=== PATIENT | female | born 1970 | race Caucasian/White ===

== ENCOUNTER 2018-09-11 18:20 | Observation (INO) | payer BC ==
[~2018-09-11] VITALS: Ht 165.1 cm; Wt 105.2 kg
[2018-09-11] VITALS (10 sets, daily range): BP systolic 118–159; BP diastolic 73–95
[2018-09-11] MEDS ORDERED: NITROGLYCERIN 0.4 MG SL TABS BTL 25'S SL ONE (18:26)
[2018-09-11] MEDS ORDERED: ASPIRIN 81 MG CHEW (CHILDREN'S ASA) ONE (18:26)
--- OUTSIDE RECORDS SUMMARY | 2018-09-11 18:26 | XMS REPORT | Continuity of Care Document ---
Author Author [facility] Address Unknown Phone Unavailable Care Team Providers Care Project Manager/Team Coach Name Role Phone LINSEY EDMOND FACP, MD PCP Insurance Providers Guarantor Francisco Patel Address [address] [place] [id number] Email [email or web address] Payer [facility] Policy Number [id number] Subscriber's Name Rohit Pateland Rachel Relationship 01 Spouse Group Number [id number] Effective Date 17 Payer [facility] Policy Number [id number] Subscriber's Name Francisco Patel Relationship 18 Self / Same As Patient Group Number [id number] Advance Directives Directive Response Recorded Date/Time Advance Directives No 04/20/17 5:50pm Chief Complaint and Reason for Visit Chief Complaint Headache Reason for Visit Migraine Problems Medical Problem Onset Date Status Diabetes mellitus type 2 in obese Unknown Chronic Hyperlipidemia LDL goal <100 Unknown Chronic Hypothyroidism 05/16/2013 Chronic Migraine Unknown Acute Obesity (BMI 30-39.9) Unknown Chronic Tobacco dependence Unknown Chronic Past Problems Medical Problem Onset Date Status Abdominal pain Unknown Acute Acute bronchitis Unknown Acute Acute bronchitis Unknown Acute Acute epigastric pain Unknown Acute Anxiety Unknown Acute Anxiety attack Unknown Acute Anxiety attack Unknown Acute Asthma exacerbation Unknown Acute Asthma exacerbation Unknown Acute Candidiasis of female genitalia Unknown Acute Chronic sinusitis Unknown Chronic Constipation Unknown Acute Cough Unknown Acute Diarrhea Unknown Acute Encounter for cervical Pap smear with pelvic exam 05/16/2013 Acute Epigastric abdominal pain Unknown Acute Esophageal spasm Unknown Acute Failure of outpatient treatment Unknown Acute Granuloma annulare Unknown Chronic Head ache Unknown Heavy menses 05/16/2013 Acute Intractable headache Unknown Acute Left-sided chest wall pain Unknown Acute Menopausal symptoms 05/16/2013 Acute Nausea & vomiting Unknown Acute New onset headache Unknown Acute Otitis media 02/07/2014 Acute Preventative health care 05/16/2013 Acute Right shoulder pain Unknown Acute Sinusitis, acute ethmoidal Unknown Acute Skin lesion of left arm 05/16/2013 Acute Tobacco dependence Unknown Acute Weight loss counseling, encounter for Unknown Acute Wheezing 02/07/2014 Acute Medications Current Home Medications Medication Dose Units Route Directions Days Qty Instructions Start Date Acetam/Butalbital/Caffeine/Codeine (Butalbital/Acetaminophen/Caffeine/Codeine) 09-349-81-30 Mg Capsule 1-2 Capsule Oral Every 4 Hours As Needed as needed for For Headache/Migraine 20 Capsule DO NOT EXCEED 6 CAPSULES/24 HOURS 05/08/18 Acetaminophen/Butalbital/Caffeine (Butalbital/Acetaminophen/Caffeine) 50-325-40 Mg Tablet 1-2 Tablet Oral Every 4 Hours As Needed as needed for For Headache/Migraine 60 Tablet DO NOT EXCEED 6 TABLETS/24 HOURS 04/22/17 Acetaminophen/Hydrocodone Bitart ([place]) 5 Mg/325 Mg Tablet 1-2 Tablet Oral Every 4-6 Hours As Needed as needed for For Pain 20 Tablet 07/13/17 Albuterol (Albuterol Sulfate Neb) 2.5 Mg/3 Ml Vial.neb 1 Vial Nebulize Every 4-6 Hours As Needed as needed for Shortness Of Breath/Wheezing 90 Vial 10/27/17 Albuterol (Proair Hfa) 90 Mcg Hfa.aer.ad 1-2 Puff Inhalation Every 4-6 Hours As Needed as needed for Shortness Of Breath/Wheezing 8.5 Gram 10/18/17 Amitriptyline Hcl 75 Mg Tablet 150 Mg Oral Bedtime 30 Tablet 04/22/17 Atorvastatin Calcium 20 Mg Tablet 20 Mg Oral Daily 90 Tablet 07/06/17 Cetirizine Hcl (Zyrtec) 10 Mg Capsule 10 Mg Oral Daily Cyclobenzaprine Hcl (Flexeril) 10 Mg Tablet 10 Mg Oral As Needed, Up To 3 Times Daily as needed for For Headache/Migraine 21 Tablet 04/22/17 Fluticasone Propionate 50 Mcg [place].susp 2 [place] Intranasal Daily 16 Gram 06/14/16 Ibuprofen 800 Mg Tablet 800 Mg Oral Every 8 Hours As Needed 90 Tablet 07/05/12 Metformin Hcl (Glucophage) 500 Mg Tablet 500 Mg Oral Twice Daily With Meals 180 Tablet 05/16/17 Niacinamide 500 Mg Tablet 500 Mg Oral Three Times A Day 42 Tablet 07/06/17 Ondansetron Hcl (Zofran) 4 Mg Tablet 4 Mg Oral As Needed, Up To 3 Times Daily as needed for For Nausea/Vomiting 20 Tablet 05/08/18 Prednisone (Prednisone 40 Mg Burst) 20 Mg Tablet 40 Mg Oral Daily 10 Tablet TAKE 2 TABLETS (40 MG) BY MOUTH ONCE DAILY FOR 5 DAYS. DISPENSE #10 20 MG TABLETS. 10/27/17 Past Home Medications Medication Directions Ordered Status Acetam/Butalbital/Caffeine/Codeine (Fioricet W/ Codeine) 75-138-70-30 Mg Capsule, 1 Capsule Oral Every 6 Hours As Needed as needed for For Headache/Migraine 11/19/15 Discontinued Acetaminophen/Hydrocodone Bitart ([place]) 5 Mg/325 Mg Tablet, 1-2 Tablet Oral Every 4-6 Hours As Needed as needed for For Pain 01/28/16 Discontinued Acetaminophen/Hydrocodone Bitart ([place]) 5 Mg/325 Mg Tablet, 1-2 Tab Oral Every 4 Hours As Needed as needed for For Pain Discontinued Acetaminophen/Hydrocodone Bitart ([place]) 5 Mg/325 Mg Tablet, 1-2 Tab Oral Every 4 Hours As Needed 05/13/13 Discontinued Albuterol (Albuterol Sulfate Neb) 2.5 Mg/3 Ml Vial.neb, 1 Vial Nebulize Every 4- 6 Hours As Needed as needed for Shortness Of Breath/Wheezing 06/02/15 Discontinued Albuterol (Albuterol Sulfate Neb) 2.5 Mg/3 Ml Vial.neb, 1 Vial Nebulize Every 4- 6 Hours As Needed as needed for Shortness Of Breath/Wheezing 02/14/14 Discontinued Albuterol (Ventolin Hfa) 90 Mcg Hfa.aer.ad, 1-2 Puff Inhalation Every 4-6 Hours As Needed as needed for Shortness Of Breath/Wheezing 04/16/15 Discontinued Albuterol (Ventolin Hfa) 90 Mcg Hfa.aer.ad, 1-2 Puff Inhalation Every 4-6 Hours As Needed as needed for Shortness Of Breath/Wheezing 02/14/14 Discontinued Albuterol (Albuterol Sulfate Neb) 2.5 Mg/3 Ml Vial.neb, 1 Vial Inhalation Every 6 Hours As Needed 02/09/11 Discontinued Albuterol/Ipratropium (Duoneb) 0.5 Mg/2.5 Mg Solution, 1 Vial Nebulizer Four Times Daily 04/17/12 Discontinued Aleve , Discontinued Alprazolam (Xanax) 0.5 Mg Tablet, 0.5 Mg Oral Three Times A Day 10/09/12 Discontinued Amitriptyline Hcl 75 Mg Tablet, 75 Mg Oral Bedtime 04/11/17 Discontinued Amoxicillin 875 Mg Tablet, 875 Mg Oral Every 12 Hours 06/14/16 Discontinued Amoxicillin 500 Mg Capsule, 500 Mg Oral Three Times A Day 02/09/11 Discontinued Amoxicillin/Potassium Clav (Augmentin 875-125 Tablet) 1 Each Tablet, Twice A Day Discontinued Ampicillin 500 Mg Capsule, 500 Mg Oral Twice A Day 04/16/15 Discontinued Azithromycin (Zpak) 250 Mg Tablet, 1 Pack Oral As Directed 10/27/17 Discontinued Azithromycin (Zpak) 250 Mg Tablet, 1 Pack Oral As Directed 03/22/16 Discontinued Azithromycin (Zpak) 250 Mg Tablet, 1 Pack Oral As Directed 03/11/16 Discontinued Azithromycin (Zpak) 250 Mg Tablet, 1 Pack Oral As Directed 08/20/15 Discontinued Azithromycin (Zpak) 250 Mg Tablet, 250 Mg Oral Pack 07/17/13 Discontinued Benzonatate (Tessalon Perles) 100 Mg Capsule, 100 Mg Oral Every 4 Hours as needed for For Coughing 02/14/14 Discontinued Bupivacaine Hcl (Marcaine 0.25% 50 Ml Mdv) 2.5 Mg/1 Ml Vial, 1 Ml Intraartic Once 03/09/16 Discontinued Bupropion Hcl (Bupropion Hcl Er (Smoking Det)) 150 Mg Tab.er.12h, 150 Mg Oral Twice A Day 06/20/16 Discontinued Bupropion Hcl (Bupropion Hcl Er (Smoking Det)) 150 Mg Tab.er.12h, 150 Mg Oral Twice A Day 01/11/16 Discontinued Ceftriaxone Sodium (Rocephin) 1 Gm Vial, 1 Gm Intramusc Once 02/07/14 Discontinued Cefuroxime Axetil (Ceftin) 250 Mg Tablet, 250 Mg Oral Twice A Day 12/26/14 Discontinued Ciprofloxacin Hcl (Cipro) 500 Mg Tablet, 500 Mg Oral Every 12 Hours 04/17/12 Discontinued Ciprofloxacin Hcl (Ciprofloxacin Hcl Opth) 0.3 % Solution, 4 Drop Ophthalmic Four Times Daily 03/28/12 Discontinued Citalopram Hydrobromide (Citalopram Hbr) 20 Mg Tablet, 20 Mg Oral Daily 10/09/12 Discontinued Cyclobenzaprine Hcl (Flexeril) 10 Mg Tablet, 10 Mg Oral As Needed, Up To 3 Times Daily as needed for For Pain 11/25/16 Discontinued Dicyclomine Hcl (Bentyl) 20 Mg Tablet, 20 Mg Oral Every 4-6 Hours As Needed as needed for For Pain 11/10/16 Discontinued Flu Vacc [id number](6MOS Up)/Pf (Flulaval Quad [id number] Syr) 60 Mcg/0.5 Ml Syringe, 60 Mcg Intramusc Once 01/09/17 Discontinued Fluconazole (Diflucan) 100 Mg Tablet, 100 Mg Oral Daily 08/04/14 Discontinued Guaifenesin/Codeine Phosphate (Cheratussin Ac Syrup) 100 Mg/10 Mg 5ML, 5 Ml Oral Every 4 Hours As Needed as needed for For Coughing 02/07/14 Discontinued Guaifenesin/Codeine Phosphate (Robitussin W/ Codeine Syrup) 5 Ml Syrup, 5-10 Ml Oral Every 4-6 Hours As Needed as needed for For Coughing 07/17/13 Discontinued Guaifenesin/Pseudoephedrine Hcl (Mucinex D) 600 Mg/60 Mg Tab.er.12h, Discontinued Hydroxyzine Hcl 25 Mg Tablet, 25 Mg Oral Three Times A Day as needed for For Anxiety 12/16/13 Discontinued Ibuprofen , Discontinued Influenza Virus Vaccine Quadrival (Fluarix Quad ) 60 Mcg/0.5 Ml Syringe, 60 Mcg Intramusc Once 11/19/15 Discontinued Ipratropium [place] (Atrovent Neb Soln) 0.02 % Soln, 1 Vial Inhalation Every 6 Hours As Needed 02/09/11 Discontinued Ketorolac Tromethamine Unknown Strength Tablet, Unknown Dose Oral Twice A Day Discontinued Ketorolac Tromethamine 60 Mg/2 Ml Vial, 60 Mg Intramusc Once 11/04/15 Discontinued Lidocaine (Lidocaine Hcl 1% Mdv) 50 Ml Solution, 1 Ml Diluent Once 03/09/16 Discontinued Lisinopril 10 Mg Tablet, 10 Mg Oral Daily 09/04/15 Discontinued Lisinopril 10 Mg Tablet, 10 Mg Oral Daily 06/02/15 Discontinued Metformin Hcl (Glucophage) 500 Mg Tablet, 500 Mg Oral Twice Daily With Meals 01/27/17 Discontinued Metformin Hcl 1,000 Mg Tablet, 1000 Mg Oral Daily 06/20/16 Discontinued Metformin Hcl (Glucophage) 500 Mg Tablet, 500 Mg Oral Twice Daily With Meals 10/12/15 Discontinued Metformin Hcl (Glucophage) 500 Mg Tablet, 500 Mg Oral Twice Daily With Meals 06/02/15 Discontinued Methylprednisolone Acetate (Depo-Medrol) 80 Mg/1 Ml Vial, 80 Mg Intramusc Once 10/27/17 Discontinued Methylprednisolone Acetate (Depo-Medrol) 80 Mg/1 Ml Vial, 80 Mg Intramusc Once 03/11/16 Discontinued Methylprednisolone Acetate (Depo-Medrol) 80 Mg/1 Ml Vial, 80 Mg Intramusc Once 08/20/15 Discontinued Methylprednisolone Acetate (Depo-Medrol) 80 Mg/1 Ml Vial, 80 Mg Intramusc Once 04/16/15 Discontinued Methylprednisolone Acetate (Depo-Medrol) 80 Mg/1 Ml Vial, 80 Mg Intramusc Once 02/07/14 Discontinued Neomycin/Polymyxin/Dexamethasone (Maxitrol) 5 Ml Suspension, 4 Drop Each Ear Four Times Daily 06/14/16 Discontinued Neomycin/Polymyxin/Dexamethasone (Maxitrol) 5 Ml Suspension, 4 Drop Each Eye Four Times Daily 06/14/16 Discontinued Nystatin 0.1 Million Unit/Gm Cream, 1 Applic Topical Twice A Day 08/04/14 Discontinued Ondansetron Hcl (Zofran Odt) 4 Mg Tab.disper, 4 Mg Oral Every 4-6 Hours As Needed as needed for For Nausea/Vomiting 11/10/16 Discontinued Pantoprazole Sodium (Protonix) 40 Mg Tablet.dr, 40 Mg Oral Twice A Day 03/18/16 Discontinued Phentermine Hcl 37.5 Mg Tablet, 37.5 Mg Oral Every Morning Discontinued Phentermine Hcl 37.5 Mg Tablet, 37.5 Mg Oral Daily 10/04/13 Discontinued Phentermine Hcl 37.5 Mg Capsule, 37.5 Mg Oral Every Morning 09/03/13 Discontinued Phentermine Hcl 37.5 Mg Capsule, 37.5 Mg Oral Every Morning 08/28/13 Discontinued Phentermine Hcl 37.5 Mg Capsule, 37.5 Mg Oral Every Morning 07/30/13 Discontinued Prednisone (Prednisone Taper 3X3,2X3,1X3) 20 Mg Tablet, 20 Mg Oral As Directed 03/11/16 Discontinued Prednisone (Prednisone 40 Mg Burst) 20 Mg Tablet, 40 Mg Oral Daily 12/04/15 Discontinued Prednisone (Prednisone 40 Mg Burst) 20 Mg Tablet, 40 Mg Oral Daily 08/20/15 Discontinued Prednisone (Prednisone Taper 4X3,3X3,2X3,1X3) 10 Mg Tablet, 10 Mg Oral As Directed 04/16/15 Discontinued Prednisone (Prednisone 40 Mg Burst) 20 Mg Tablet, 40 Mg Oral Daily 02/12/14 Discontinued Prednisone (Prednisone 40 Mg Burst) 20 Mg Tablet, 40 Mg Oral Daily 07/17/13 Discontinued Prednisone (Prednisone Taper 3X3,2X3,1X3) 20 Mg Tablet, 20 Mg Oral As Directed 04/17/12 Discontinued Prednisone 20 Mg Tab, 20 Mg Oral Daily 02/09/11 Discontinued Promethazine Hcl (Phenergan) 50 Mg/1 Ml Vial, 50 Mg Intramusc Once 11/04/15 Discontinued Promethazine Hcl/Codeine (Promethazine W/ Codeine) 6.25-10 Mg/5 Ml Syrup, 5-10 Ml Oral Every 6 Hours 03/11/16 Discontinued Promethazine Hcl/Codeine (Promethazine W/ Codeine) 6.25-10 Mg/5 Ml Syrup, 5-10 Ml Oral Every 4-6 Hours As Needed as needed for For Coughing 04/16/15 Discontinued Promethazine Hcl/Codeine (Phenergan W/ Codeine) 6.25 Mg/10 Mg 5ML, 10 Ml Oral Every 4-6 Hours As Needed as needed for For Coughing 02/14/14 Discontinued Promethazine Hcl/Codeine (Phenergan W/ Codeine) 6.25 Mg/10 Mg 5ML, 10 Ml Oral Every 6 Hours As Needed 04/17/12 Discontinued Simvastatin 20 Mg Tablet, 20 Mg Oral Every Evening 06/02/15 Discontinued Thyroid,Pork (Nature-Throid) 130 Mg Tablet, 130 Mg Oral Daily Discontinued Triamcinolone Acetonide (Kenalog) 200 Mg/5 Ml Vial, 40 Mg Intramusc Once 03/09/16 Discontinued Triamcinolone Acetonide (Kenalog) 200 Mg/5 Ml Vial, 40 Mg Intramusc Once 12/07/15 Discontinued Triamcinolone Acetonide (Kenalog) 80 Gm Cr, 0.5 % Topical Twice A Day for Granuloma Annulare 05/22/13 Discontinued Varenicline (Chantix Continuing Month Pack) 1 Each Pack, 1 Tab Oral Take As Directed 12/31/13 Discontinued Varenicline (Chantix Starting Month Pack) 1 Each Pack, 1 Tab Oral Take As Directed 02/27/14 Discontinued Varenicline (Chantix Starting Month Pack) 1 Each Pack, 1 Tab Oral Take As Directed 12/31/13 Discontinued Social History Social History Problem Response Recorded Date/Time Onset Date Status Marital Status 05/07/2018 11:54pm Not Applicable Not Applicable Smoking Status Start Date Stop Date Current every day smoker Hospital Discharge Instructions No hospital discharge instruction information available. Plan of Care Discharge Date 05/08/18 1:40am Disposition 01 HOME/SELF CARE Condition at Discharge Good Instructions/Education Provided ED Headache Migraine Forms Provided Return to Work Prescriptions See Medication Section Referrals LINSEY EDMOND MD, FACP Order Date: As needed Address: [address] [place] [address] Note: Functional Status No functional status information available. Allergies, Adverse Reactions, Alerts No known allergies. Immunizations Immunization Event Date Type Not Given Reason Dose Number Lot Number Drainage Design Coordinator Fluarix Quadrivalent 16-17 (3-64y) 11/19/15 Administered 1 [id number] SANOFI Flulaval Quadrivalent 17-18 (6M-[id number]) 01/09/17 Administered 1 [id number] indico CONSU Vital Signs Acute Vital Signs Vital Response Date/Time Height (Feet) 5 feet 05/07/2018 11:44pm Height (Inches) 5.00 inches 05/07/2018 11:44pm Height (Calculated Centimeters) 165.703001 cm 05/07/2018 11:44pm Weight (Pounds) 230.0 05/07/2018 11:44pm Weight (Ounces) 8 oz 07/13/2017 7:14am Weight (Calculated Kilograms) 104.974321 kg 05/07/2018 11:44pm Weight (Calculated Grams) 916587.246 gm 05/07/2018 11:44pm Body Mass Index (BMI) 38 05/07/2018 11:44pm Body Mass Index (BMI) Classification Obese 05/07/2018 11:44pm Temperature (Fahrenheit) 98.6 degrees F (96.8 - 100.4) 05/08/2018 1:40am Blood Pressure Systolic 117 mm Hg (100 - 140) 05/08/2018 1:40am Blood Pressure Diastolic 73 mm Hg (60 - 100) 05/08/2018 1:40am Pulse Rate (adult) 80 beats per minute (60 - 100) 05/08/2018 1:40am Respiratory Rate 12 breaths per minute (12 - 24) 07/13/2017 8:50am Respirations 18 breaths per minute (12 - 20) 05/08/2018 1:40am O2 Sat by Pulse Oximetry 100 % (90 - 100) 05/08/2018 1:40am Ambulatory Vital Signs Vital Response Date/Time Weight 222 lbs 10/27/2017 5:51pm Temperature 97.3 degrees F 10/27/2017 5:51pm Blood Pressure 132/76 mm Hg 10/27/2017 5:51pm Pulse Rate 95 bpm 10/27/2017 5:51pm Respiration Rate 20 bpm 10/27/2017 5:51pm Pulse Oximetry Pulse Oximetry 10/27/2017 5:51pm Results Laboratory Results Test Name Result Units Flags Reference Collection Date/Time Result Date/Time Comments Surgical Pathology 07/13/2017 8:15am 07/14/2017 4:52pm N/A 07/18/17 07/13/2017 8:15am 07/19/2017 5:53am Ambulatory Laboratory Results Test Name Result Units Flags Reference Result Date/Time Comments Hemoglobin A1c 6.4 11/25/2016 1:20pm Glucose Level 142 11/25/2016 1:20pm Hemoglobin A1c 7.1 % 05/16/2017 10:35am Procedures Procedure Status Date Provider(s) MEASURE BLOOD OXYGEN LEVEL Completed 05/25/17 ANESTH LOWER ARM SURGERY Completed 07/13/17 CORBIN RPUITT STAFFING RECRUITER EXC HAND CLEMENT DEEP < 1.5 CM Completed 07/13/17 ALICIA VICTORIA DO CEFAZOLIN SODIUM INJECTION Completed 07/13/17 KETOROLAC TROMETHAMINE INJ Completed 07/13/17 INJ MIDAZOLAM HYDROCHLORIDE Completed 07/13/17 ONDANSETRON HCL INJECTION Completed 07/13/17 Completed 07/13/17 EXCISION OF LEFT HAND MUSCLE, OPEN APPROACH Completed 07/13/17 ALICIA VICTORIA DO Noninvasive ear/pulse oximetry overnight monitor Completed 05/25/17 LINSEY EDMOND MD, FACP Encounters Encounter Location Arrival/Admit Date Discharge/Depart Date Attending Provider Departed Emergency Room [facility] 05/07/18 11:34pm 05/08/18 1:40am ENRRIQUE PRINCE MD Registered Practice [facility] 10/27/17 4:55pm RINA MARIE GENERAL FARMER Office Visit [facility] 10/27/17 4:55pm RINA MARIE GENERAL FARMER Office Visit [facility] 10/18/17 2:55pm RINA MARIEP Departed Surgical Day Care [facility] 07/13/17 6:23am 07/13/17 2:41pm ALICIA VICTORIA DO Office Visit [facility] 07/06/17 2:30pm LINSEY EDMOND FACP, MD Office Visit [facility] 07/03/17 3:00pm ALICIA VICTORIA DO Registered Clinic [facility] 05/25/17 11:01am LINSEY EDMOND FACP, MD Office Visit [facility] 05/16/17 10:00am LINSEY EDMOND FACP, MD Recent Diagnosis
--- OUTSIDE RECORDS SUMMARY | 2018-09-11 18:30 | XMS REPORT | Continuity of Care Document ---
Author Author [facility]* Organization [facility]* Address Unknown Phone Unavailable Care Team Providers Care Stave And Bolt Equalizer Name Role Phone LINSEY EDMOND MD PCP Insurance Providers Payer Name Policy Number Subscriber Name Relationship [facility] [id number] Konrad Liu 01 Advance Directives Directive Response Recorded Date/Time Advance Directives No 08/25/15 9:45am Problems Active Problems Medical Problem Onset Date Status Diabetes mellitus type 2 in obese Unknown Chronic Hyperlipidemia LDL goal <100 Unknown Chronic Hypothyroidism 05/16/2013 Chronic Obesity (BMI 30-39.9) Unknown Chronic Tobacco dependence Unknown Chronic Acute bronchitis Unknown Resolved Acute bronchitis Unknown Resolved Anxiety attack Unknown Resolved Anxiety attack Unknown Resolved Asthma exacerbation Unknown Resolved Asthma exacerbation Unknown Resolved Candidiasis of female genitalia Unknown Resolved Cough Unknown Resolved Encounter for cervical Pap smear with pelvic exam 05/16/2013 Resolved Granuloma annulare Unknown Resolved Heavy menses 05/16/2013 Resolved Left-sided chest wall pain Unknown Resolved Menopausal symptoms 05/16/2013 Resolved Otitis media 02/07/2014 Resolved Preventative health care 05/16/2013 Resolved Right shoulder pain Unknown Resolved Skin lesion of left arm 05/16/2013 Resolved Tobacco dependence Unknown Resolved Weight loss counseling, encounter for Unknown Resolved Wheezing 02/07/2014 Resolved Unknown Unknown Unknown Unknown Unknown Unknown Unknown Unknown Unknown Unknown Unknown Unknown Unknown Unknown Unknown Unknown Unknown Unknown Unknown Unknown Unknown Unknown Unknown Unknown Unknown Unknown Unknown Unknown Unknown Unknown Unknown Unknown Unknown Unknown Unknown Unknown Unknown Unknown Unknown Unknown Unknown Unknown Unknown Unknown Unknown Unknown Unknown Unknown Unknown Unknown Unknown Unknown Unknown Unknown Unknown Unknown Unknown Unknown Unknown Unknown Unknown Unknown Unknown Unknown Unknown Unknown Unknown Unknown Unknown Unknown Unknown Unknown Unknown Unknown Unknown Unknown Unknown Unknown Surgical Problem Onset Date Status Unknown Unknown Unknown Past Problems Medical Problem Onset Date Diabetes mellitus type 2 in obese Unknown Hyperlipidemia LDL goal <100 Unknown Hypothyroidism 05/16/2013 Obesity (BMI 30-39.9) Unknown Tobacco dependence Unknown Acute bronchitis Unknown Acute bronchitis Unknown Anxiety attack Unknown Anxiety attack Unknown Asthma exacerbation Unknown Asthma exacerbation Unknown Candidiasis of female genitalia Unknown Cough Unknown Encounter for cervical Pap smear with pelvic exam 05/16/2013 Granuloma annulare Unknown Heavy menses 05/16/2013 Left-sided chest wall pain Unknown Menopausal symptoms 05/16/2013 Otitis media 02/07/2014 Preventative health care 05/16/2013 Right shoulder pain Unknown Skin lesion of left arm 05/16/2013 Tobacco dependence Unknown Weight loss counseling, encounter for Unknown Wheezing 02/07/2014 Unknown Unknown Unknown Unknown Unknown Unknown Unknown Unknown Unknown Unknown Unknown Unknown Unknown Unknown Unknown Unknown Unknown Unknown Unknown Unknown Unknown Unknown Unknown Unknown Unknown Unknown Unknown Unknown Unknown Unknown Unknown Unknown Unknown Unknown Unknown Unknown Unknown Unknown Unknown Unknown Unknown Unknown Unknown Unknown Unknown Unknown Unknown Unknown Unknown Unknown Unknown Unknown Unknown Unknown Unknown Unknown Unknown Unknown Unknown Unknown Unknown Unknown Unknown Unknown Unknown Unknown Unknown Unknown Unknown Unknown Unknown Unknown Unknown Unknown Unknown Unknown Unknown Unknown Unknown Unknown Unknown Unknown Unknown Unknown Unknown Unknown Unknown Unknown Unknown Unknown Unknown Unknown Unknown Unknown Unknown Unknown Unknown Unknown Unknown Unknown Unknown Unknown Unknown Unknown Unknown Unknown Unknown Unknown Unknown Unknown Unknown Unknown Unknown Unknown Unknown Unknown Unknown Unknown Unknown Unknown Unknown Unknown Unknown Unknown Unknown Unknown Unknown Unknown Unknown Unknown Unknown Surgical Problem Onset Date Unknown Unknown Unknown Unknown Medications Current Home Medications Medication Dose Units Route Directions /Qty Instructions Start Date Cetirizine Hcl 10 Mg Oral Daily 04/17/12 Ibuprofen 800 Mg Oral Every 8 Hours As Needed 07/05/12 Albuterol 1 Vial Nebulize Every 4-6 Hours As Needed as needed for Shortness Of Breath/Wheezing 90 06/02/15 Lisinopril 10 Mg Oral Daily 90 09/04/15 Metformin Hcl 500 Mg Oral Twice Daily With Meals 180 10/12/15 Rizatriptan Benzoate 10 Mg Oral As Directed 10 11/19/15 Acetam/Butalbital/Caffeine/Codeine 1 Capsule Oral Every 6 Hours As Needed as needed for For Headache/Migraine 30 DO NOT EXCEED 6 CAPSULES/24 HOURS 11/19/15 Prednisone 40 Mg Oral Daily 10 TAKE 2 TABLETS (40 MG) BY MOUTH ONCE DAILY FOR 5 DAYS. 12/04/15 Past Home Medications Medication Directions Ordered Status [Ibuprofen] , 12/15/09 Discontinued [Aleve] , 12/15/09 Discontinued Amoxicillin Capsule, 500 Mg Oral Three Times A Day 02/09/11 Discontinued Prednisone Tab, 20 Mg Oral Daily 02/09/11 Discontinued Albuterol Vial.neb, 1 Vial Inhalation Every 6 Hours As Needed 02/09/11 Discontinued Ipratropium [place] Soln, 1 Vial Inhalation Every 6 Hours As Needed 02/09/11 Discontinued Ciprofloxacin Hcl Solution, 4 Drop Ophthalmic Four Times Daily 03/28/12 Discontinued Guaifenesin/Pseudoephedrine Hcl Tab.er.12h, 04/17/12 Discontinued Promethazine Hcl/Codeine 5ML, 10 Ml Oral Every 6 Hours As Needed 04/17/12 Discontinued Prednisone Tablet, 20 Mg Oral As Directed 04/17/12 Discontinued Ciprofloxacin Hcl Tablet, 500 Mg Oral Every 12 Hours 04/17/12 Discontinued Albuterol/Ipratropium Solution, 1 Vial Nebulizer Four Times Daily 04/17/12 Discontinued Alprazolam Tablet, 0.5 Mg Oral Three Times A Day 10/09/12 Discontinued Citalopram Hydrobromide Tablet, 20 Mg Oral Daily 10/09/12 Discontinued Acetaminophen/Hydrocodone Bitart Tablet, 1-2 Tab Oral Every 4 Hours As Needed 05/13/13 Discontinued Triamcinolone Acetonide Cr, 0.5 % Topical Twice A Day for Granuloma Annulare 05/22/13 Discontinued Prednisone Tablet, 40 Mg Oral Daily 07/17/13 Discontinued Azithromycin (Zithromax) Tablet, 250 Mg Oral Pack 07/17/13 Discontinued Guaifenesin/Codeine Phosphate Syrup, 5-10 Ml Oral Every 4-6 Hours As Needed as needed for For Coughing 07/17/13 Discontinued Phentermine Hcl Capsule, 37.5 Mg Oral Every Morning 07/30/13 Discontinued Phentermine Hcl Capsule, 37.5 Mg Oral Every Morning 08/28/13 Discontinued Phentermine Hcl Capsule, 37.5 Mg Oral Every Morning 09/03/13 Discontinued Phentermine Hcl Tablet, 37.5 Mg Oral Daily 10/07/13 Discontinued Hydroxyzine Hcl Tablet, 25 Mg Oral Three Times A Day as needed for For Anxiety 12/16/13 Discontinued Varenicline Pack, 1 Tab Oral Take As Directed 12/31/13 Discontinued Varenicline Pack, 1 Tab Oral Take As Directed 12/31/13 Discontinued Guaifenesin/Codeine Phosphate 5ML, 5 Ml Oral Every 4 Hours As Needed as needed for For Coughing 02/07/14 Discontinued Ceftriaxone Sodium Vial, 1 Gm Intramusc Once 02/07/14 Discontinued Methylprednisolone Acetate Vial, 80 Mg Intramusc Once 02/07/14 Discontinued Cefuroxime Axetil Tablet, 250 Mg Oral Twice A Day 02/07/14 Discontinued Prednisone Tablet, 40 Mg Oral Daily 02/12/14 Discontinued Benzonatate Capsule, 100 Mg Oral Every 4 Hours as needed for For Coughing 02/14/14 Discontinued Promethazine Hcl/Codeine 5ML, 10 Ml Oral Every 4-6 Hours As Needed as needed for For Coughing 02/14/14 Discontinued Albuterol Vial.neb, 1 Vial Nebulize Every 4-6 Hours As Needed as needed for Shortness Of Breath/Wheezing 02/14/14 Discontinued Albuterol Hfa.aer.ad, 1-2 Puff Inhalation Every 4-6 Hours As Needed as needed for Shortness Of Breath/Wheezing 02/14/14 Discontinued Varenicline Pack, 1 Tab Oral Take As Directed 02/27/14 Discontinued Acetaminophen/Hydrocodone Bitart Tablet, 1-2 Tab Oral Every 4 Hours As Needed as needed for For Pain 03/21/14 Discontinued Nystatin Cream, 1 Applic Topical Twice A Day 08/04/14 Discontinued Fluconazole Tablet, 100 Mg Oral Daily 08/04/14 Discontinued Phentermine Hcl Tablet, 37.5 Mg Oral Every Morning 04/16/15 Discontinued Thyroid,Pork Tablet, 130 Mg Oral Daily 04/16/15 Discontinued Ampicillin Capsule, 500 Mg Oral Twice A Day 04/16/15 Discontinued Prednisone Tablet, 10 Mg Oral As Directed 04/16/15 Discontinued Promethazine Hcl/Codeine (Phenergan W/ Codeine) Syrup, 5-10 Ml Oral Every 4-6 Hours As Needed as needed for For Coughing 04/16/15 Discontinued Methylprednisolone Acetate Vial, 80 Mg Intramusc Once 04/16/15 Discontinued Albuterol Hfa.aer.ad, 1-2 Puff Inhalation Every 4-6 Hours As Needed as needed for Shortness Of Breath/Wheezing 04/16/15 Discontinued Metformin Hcl Tablet, 500 Mg Oral Twice Daily With Meals 06/02/15 Discontinued Lisinopril Tablet, 10 Mg Oral Daily 06/02/15 Discontinued Simvastatin Tablet, 20 Mg Oral Every Evening 06/02/15 Discontinued Methylprednisolone Acetate Vial, 80 Mg Intramusc Once 08/20/15 Discontinued Prednisone Tablet, 40 Mg Oral Daily 08/20/15 Discontinued Azithromycin (Zithromax) Tablet, 1 Pack Oral As Directed 08/20/15 Discontinued Promethazine Hcl Vial, 50 Mg Intramusc Once 11/04/15 Discontinued Ketorolac Tromethamine Vial, 60 Mg Intramusc Once 11/04/15 Discontinued Influenza Virus Vaccine Quadrival (Flu Vacc [id number] Up/Pf (Fluarix)) Syringe, 60 McgIntramusc Once 11/19/15 Discontinued Social History Social History Problem Response Recorded Date/Time Marital Status Significant Other 12/04/2015 11:15am Query Response Start Date Stop Date Smoking Cessation Current every day smoker Hospital Discharge Instructions No hospital discharge instructions. Plan of Care Prescriptions See Medications Section Follow-up Orders LUTEINIZING HORMONE (LH) FSH LIPID PANEL BMP-SINGLE CBC WITHOUT DIFF TSH W REFLEX TO FREE T4 PAP (ALL OTHERS) TISSUE US PELVIC LIPID PANEL CMP HEMOGLOBIN A1C (HGB A1C) MICROALBUMIN CREATINE RATIO TSH W REFLEX TO FREE T4 XR KNEE LT 1-2 VIEW XR KNEE LT 3 VIEW Functional Status No functional status results. Allergies, Adverse Reactions, Alerts No known allergies. Immunizations Name Given Type Fluarix Quadrivalent 16-17 (3-64y) 11/19/15 Administered Vital Signs Acute Vital Signs Vital Response Date/Time Height (Feet) 5 feet Height (Inches) 5 inches Height (Calculated Centimeters) 165.163414 cm Weight (Pounds) 220 Weight (Ounces) 6 oz Weight (Calculated Kilograms) 99.667202 kg Weight (Calculated Grams) 53281.322 gm Body Mass Index (BMI) 36 Body Mass Index (BMI) Classification Obese Temperature (Fahrenheit) 97.7 degrees F (96.8 - 100.4) Blood Pressure Systolic 111 mm Hg (100 - 140) Blood Pressure Diastolic 52 mm Hg (60 - 100) Pulse Rate (adult) 78 beats per minute (60 - 100) Respiratory Rate 17 breaths per minute (12 - 24) Respirations 26 breaths per minute (12 - 20) O2 Sat by Pulse Oximetry 100 % (90 - 100) Ambulatory Vital Signs Vital Response Date/Time Height 5 ft 5 in 11/19/2015 9:26am Weight 222 lbs 11/19/2015 9:26am Temperature, Tympanic 96.5 degrees F 11/19/2015 9:26am Blood Pressure, Sitting, Left Arm 118/74 mm Hg 11/19/2015 9:26am Pulse Rate 89 bpm 11/19/2015 9:26am Respiration Rate 16 bpm 11/19/2015 9:26am Body Surface Area 2.19 m2 11/19/2015 9:26am Body Mass Index 36.9 kg/m2 11/19/2015 9:26am Results Test Source Date Result Interp. Ref. Range Comments Urine Microalbumin/Creatinine Ratio August 25, 2015 1:50pm 5.7 MG/G N -30 Urine Random Creatinine August 25, 2015 1:50pm 242.15 MG/DL H 47-110 Urine Microalbumin August 25, 2015 1:50pm 14.0 MG/L N 5.0-20.0 Activated Partial Thromboplast Time December 15, 2013 11:20pm 25.8 SEC N 22.7-31.2 Alanine Aminotransferase (ALT/SGPT) August 25, 2015 9:55am 13 U/L N 0-55 Albumin August 25, 2015 9:55am 3.7 g/dL N 3.5-5.0 Albumin/Globulin Ratio August 25, 2015 9:55am 1.1 N 1.0-2.0 Alkaline Phosphatase August 25, 2015 9:55am 51 IU/L N 40-150 Anion Gap August 25, 2015 9:55am 15 MEQ/L H 0-14 Aspartate Amino Transf (AST/SGOT) August 25, 2015 9:55am 11 U/L N 5-34 B-Type Natriuretic Peptide March 25, 2008 1:08pm 20 PG/ML - BUN/Creatinine Ratio August 25, 2015 9:55am 20 N 10-20 Band Neutrophils # December 15, 2013 11:05pm 0.1 X10-3/UL N 0.0-0.9 Band Neutrophils % December 15, 2013 11:05pm 1 % N 0-8 Basophils # (Auto) December 15, 2013 11:05pm Not Performed 0.0-0.2 Basophils (%) (Auto) December 15, 2013 11:05pm Not Performed 0.0-2.0 Blood Urea Nitrogen August 25, 2015 9:55am 17.0 MG/DL N 7.0-18.7 Calcium Level August 25, 2015 9:55am 9.1 MG/DL N 8.4-10.2 Carbon Dioxide Level August 25, 2015 9:55am 21.0 MMOL/L L 22-29 Chloride Level August 25, 2015 9:55am 106 MMOL/L N 98-107 Cholesterol Level August 25, 2015 9:55am 182 MG/DL N 150-200 Cholesterol/HDL Ratio August 25, 2015 9:55am 4 % N 0-5 Creatine Kinase December 15, 2013 11:05pm 89 U/L N 26-308 Creatine Kinase MB December 15, 2013 11:05pm 0.3 NG/ML N 0.0-3.6 Creatinine August 25, 2015 9:55am 0.84 MG/DL N 0.57-1.11 D-Dimer December 15, 2013 11:20pm < 200 NG/ML 0-400 Differential Total Cells Counted December 15, 2013 11:05pm 100 - EGFR August 25, 2015 9:55am 96.4 * - *RESULT UNITS: ML/MIN/1.73 EGFR Other August 25, 2015 9:55am 83.6 * - *RESULT UNITS: ML/MIN/1.73 Eosinophils # (Auto) December 15, 2013 11:05pm Not Performed 0.0-0.6 Eosinophils # (Manual) December 15, 2013 11:05pm 0.3 X10-3/UL N 0.0-0.6 Eosinophils % (Manual) December 15, 2013 11:05pm 3 % N 0-6 Eosinophils (%) (Auto) December 15, 2013 11:05pm Not Performed 0.0-6.0 Follicle Stimulating Hormone May 16, 2013 10:52am 12.9 mIU/mL - Follicular phase 3.5 - 12.5 Ovulation phase 4.7 - 21.5 Luteal phase 1.7 - 7.7 Postmenopausal 25.8 - 134.8 Performed at: - [facility] [id number], [place], [place] [id number] [employer]/Designer: Yamilet Sarmiento MD, Phone: [phone] Free Thyroxine December 15, 2013 11:05pm 0.99 NG/DL N 0.76-1.46 Globulin August 25, 2015 9:55am 3.4 G/DL N 1.9-3.8 Glucose Level August 25, 2015 9:55am 119 MG/DL H 70-105 HDL Cholesterol August 25, 2015 9:55am 41 MG/DL N 35-60 Hematocrit March 17, 2014 1:54pm 39.0 % N 37.0-47.0 Hemoglobin March 17, 2014 1:54pm 13.7 G/DL N 12.0-16.0 Hemoglobin A1c August 25, 2015 9:55am 6.1 % N 4.5-6.5 Glucose Control Index: Poor >8.5 Good 7.5-8.5 Excellent 6.5-7.5 Non-diabetic <6.5 Human Chorionic Gonadotropin, Qual December 15, 2013 11:20pm Negative - Influenza Type A Antigen February 14, 2014 12:15am Neg - Influenza Type B Antigen February 14, 2014 12:15am Neg - LDL Cholesterol Direct August 25, 2015 9:55am 128 MG/DL H -100 Lab Scanned Report May 16, 2013 12:00am Lab-PAP [id number] - Luteinizing Hormone May 16, 2013 10:52am 6.5 mIU/mL - Follicular phase 2.4 - 12.6 Ovulation phase 14.0 - 95.6 Luteal phase 1.0 - 11.4 Postmenopausal 7.7 - 58.5 Lymphocytes # (Auto) December 15, 2013 11:05pm Not Performed 0.9-5.1 Lymphocytes # (Manual) December 15, 2013 11:05pm 5.3 X10-3/UL H 0.9-5.1 Lymphocytes % (Manual) December 15, 2013 11:05pm 51 % H 18-47 Lymphocytes (%) (Auto) December 15, 2013 11:05pm Not Performed 18.0-47.0 Mean Corpuscular Hemoglobin December 15, 2013 11:05pm 30.6 PG N 27.0-31.0 Mean Corpuscular Hemoglobin Concent December 15, 2013 11:05pm 33.9 G/DL N 33.0-37.0 Mean Corpuscular Volume December 15, 2013 11:05pm 90.2 FL N 80.0-99.0 Monocytes # (Auto) December 15, 2013 11:05pm Not Performed 0.1-0.9 Monocytes # (Manual) December 15, 2013 11:05pm 0.5 X10-3/UL N 0.1-0.9 Monocytes % (Manual) December 15, 2013 11:05pm 5 % N 0-10 Monocytes (%) (Auto) December 15, 2013 11:05pm Not Performed 0.0-10.0 Myoglobin ng/ml December 15, 2013 11:05pm 23.0 NG/ML N 10.0-92.0 WH-Flb-L-Type Natriuretic Peptide December 15, 2013 11:05pm 47 PG/ML N 0.00-450 N-Terminal Pro-Brain Natriuretic Peptide CHF is excluded when NT-Pro-BNP: <300 pg/ml CHF is likely when NT-Pro-BNP: >450 pg/ml patients <50 years >900 pg/ml patients 50-75 years >1800 pg/ml patients >75 years Results of this test should always be interpreted in conjunction with the patient's medical history, clinical presentation and other findings. Neutrophils # (Auto) December 15, 2013 11:05pm Not Performed 1.9-8.1 Neutrophils # (Manual) December 15, 2013 11:05pm 4.2 X10-3/UL N 1.9-8.1 Neutrophils % (Manual) December 15, 2013 11:05pm 40 % N 40-75 Neutrophils (%) (Auto) December 15, 2013 11:05pm Not Performed 40.0-75.0 Platelet Count December 15, 2013 11:05pm 332 X10-3/UL N 130-400 Potassium Level August 25, 2015 9:55am 4.1 MMOL/L N 3.5-5.1 Prothromb Time International Ratio December 15, 2013 11:20pm 1.0 - INR THERAPEUTIC RANGEGROUP A 2.0 - 3.0 GROUP B 2.5 - 3.5 INDICATIONS; INDICATIONS; Prophylaxis and treatment Mechanical prosthetic of venous thrombosis. valves. Treatment of pulmonary embolism. Prevention of systemic embolism. Tissue heart valves. Acute myocardial infarction. Valvular heart disease. Atrial fibrillation. Prothrombin Time December 15, 2013 11:20pm 11.3 SEC N 9.9-12.1 Red Blood Count December 15, 2013 11:05pm 4.74 X10-6/UL N 4.20-5.40 Red Cell Distribution Width December 15, 2013 11:05pm 12.5 % N 11.5-14.5 Red Cell Morphology Comment December 15, 2013 11:05pm Normal - Sodium Level August 25, 2015 9:55am 138 MMOL/L N 136-145 Surgical Pathology Case Number May 16, 2013 10:45am [id number] - Thyroid Stimulating Hormone (TSH) August 25, 2015 9:55am 1.05 MIU/L N 0.35-4.94 Total Bilirubin August 25, 2015 9:55am 0.30 MG/DL N 0.0-1.0 Total Protein August 25, 2015 9:55am 7.1 G/DL N 6.4-8.3 Triglycerides Level August 25, 2015 9:55am 143 MG/DL N 30-200 Troponin I December 15, 2013 11:05pm < 0.02 NG/ML 0.00-0.06 TROPONIN I<=0.06 ng/mL Negative 0.07-0.25 ng/mL Intermediate >0.25 ng/mL Positive >0.6 ng/mL Critical Troponin I is cardiac specific. If present, indicates injury has occurred, indicating need to R/O myocardial infarct or high risk unstable angina (UA). VLDL Cholesterol, Calculated August 25, 2015 9:55am 29 N 5-40 White Blood Count December 15, 2013 11:05pm 10.4 X10-3/UL N 4.8-10.8 Procedures Procedure Status Date Provider(s) ROUTINE VENIPUNCTURE completed 12/15/13 CHEST X-RAY 1 VIEW FRONTAL completed 12/15/13 COMPREHEN METABOLIC PANEL completed 12/15/13 ASSAY OF CK (CPK) completed 12/15/13 CREATINE MB FRACTION completed 12/15/13 ASSAY OF MYOGLOBIN completed 12/15/13 ASSAY OF NATRIURETIC PEPTIDE completed 12/15/13 ASSAY OF FREE THYROXINE completed 12/15/13 ASSAY THYROID STIM HORMONE completed 12/15/13 ASSAY OF TROPONIN QUANT completed 12/15/13 CHORIONIC GONADOTROPIN ASSAY completed 12/15/13 BL SMEAR W/DIFF WBC COUNT completed 12/15/13 COMPLETE CBC AUTOMATED completed 12/15/13 FIBRIN DEGRADATION QUANT completed 12/15/13 PROTHROMBIN TIME completed 12/15/13 THROMBOPLASTIN TIME PARTIAL completed 12/15/13 ELECTROCARDIOGRAM TRACING completed 12/15/13 ELECTROCARDIOGRAM REPORT completed 12/15/13 THER/PROPH/DIAG INJ IV PUSH completed 12/15/13 TX/PRO/DX INJ NEW DRUG ADDON completed 12/15/13 EMERGENCY DEPT VISIT completed 12/15/13 EMERGENCY DEPT VISIT completed 12/15/13 LORAZEPAM INJECTION completed 12/15/13 ONDANSETRON HCL INJECTION completed 12/15/13 CHEST X-RAY 2VW FRONTAL&LATL completed 02/13/14 INFLUENZA ASSAY W/OPTIC completed 02/13/14 AIRWAY INHALATION TREATMENT completed 02/13/14 AIRWAY INHALATION TREATMENT completed 02/13/14 THER/PROPH/DIAG INJ SC/IM completed 02/13/14 EMERGENCY DEPT VISIT completed 02/13/14 EMERGENCY DEPT VISIT completed 02/13/14 DIPHENHYDRAMINE HCL INJECTIO completed 02/13/14 PHENTOLAINE MESYLATE INJ completed 02/13/14 METHYLPREDNISOLONE INJECTION completed 02/13/14 ALBUTEROL COMP UNIT completed 02/13/14 ALBUTEROL NON-COMP UNIT completed 02/13/14 TRANSVAGINAL US NON-OB completed 03/11/14 US EXAM PELVIC COMPLETE completed 03/11/14 HYSTEROSCOPY ABLATION completed 03/21/14 JONN TERRAZAS MD SUCCINYCHOLINE CHLORIDE INJ completed 03/21/14 CIPROFLOXACIN IV completed 03/21/14 INJ MIDAZOLAM HYDROCHLORIDE completed 03/21/14 completed 03/21/14 METOCLOPRAMIDE HCL INJECTION completed 03/21/14 FENTANYL CITRATE INJECITON completed 03/21/14 FENTANYL CITRATE INJECITON completed 03/21/14 NORMAL SALINE SOLUTION INFUS completed 03/21/14 NORMAL SALINE SOLUTION INFUS completed 03/21/14 ROUTINE VENIPUNCTURE completed 03/17/14 HEMATOCRIT completed 03/17/14 HEMOGLOBIN completed 03/17/14 ROUTINE VENIPUNCTURE completed 08/25/15 COMPREHEN METABOLIC PANEL completed 08/25/15 LIPID PANEL completed 08/25/15 MICROALBUMIN QUANTITATIVE completed 08/25/15 ASSAY OF URINE CREATININE completed 08/25/15 GLYCOSYLATED HEMOGLOBIN TEST completed 08/25/15 ASSAY THYROID STIM HORMONE completed 08/25/15 X-RAY EXAM OF KNEE 3 completed 11/19/15 MEASURE BLOOD OXYGEN LEVEL completed 11/25/15 Encounters Encounter Location Date/Time Office Visit [facility] 12/07/15 10:30am Departed Emergency Room [facility] 12/04/15 10:41am Registered Clinic [facility] 11/25/15 6:45pm Registered Clinic [facility] 11/19/15 10:09am Office Visit [facility] 11/19/15 9:30am Office Visit [facility] 11/04/15 12:00pm Registered Clinic [facility] 08/25/15 9:47am Office Visit [facility] 08/20/15 11:15am Office Visit [facility] 06/02/15 9:00am Office Visit [facility] 04/16/15 9:45am Office Visit [facility] 08/04/14 11:00am Registered Clinic [facility] 03/17/14 1:44pm Registered Clinic [facility] 03/11/14 12:54pm Departed Emergency Room [facility] 02/13/14 11:42pm Office Visit [facility] 02/07/14 2:45pm Registered Emergency Room [facility] 12/15/13 10:45pm Office Visit [facility] 10/04/13 8:30am Office Visit [facility] 09/03/13 8:30am Office Visit [facility] 07/30/13 9:30am Departed Emergency Room [facility] 07/17/13 5:16pm Office Visit [facility] 06/05/13 8:30am Registered Clinic [facility] 05/16/13 10:45am Office Visit [facility] 05/16/13 10:00am Departed Emergency Room [facility] 05/13/13 4:43am Office Visit [facility] 10/09/12 11:15am Office Visit [facility] 07/05/12 2:30pm Departed Emergency Room [facility] 04/17/12 1:31am Office Visit [facility] 03/28/12 9:45am Registered Clinic [facility] 12/27/11 1:57pm Departed Emergency Room [facility] 05/08/11 6:44pm Departed Emergency Room [facility] 02/09/11 4:18am Office Visit [facility] 06/17/10 3:00pm Office Visit [facility] 04/22/10 3:15pm Office Visit [facility] 03/18/10 4:00pm Departed Emergency Room [facility] 02/02/10 9:01am Office Visit [facility] 01/05/10 8:45am Departed Emergency Room [facility] 12/15/09 4:02pm Office Visit [facility] 12/08/09 4:30pm Discharged Recurring [facility] 09/24/09 11:59am Office Visit [facility] 03/24/09 2:30pm Office Visit [facility] 03/18/09 10:30am Office Visit [facility] 01/29/09 11:00am Office Visit [facility] 01/26/09 11:00am Registered Clinic [facility] 01/02/09 4:44pm Registered Clinic [facility] 03/25/08 12:59pm Departed Emergency Room [facility] 12:00am Departed Emergency Room [facility] 12:00am
--- OUTSIDE RECORDS SUMMARY | 2018-09-11 18:32 | XMS REPORT | Continuity of Care Document ---
Author Author [facility] Organization [facility] Address Unknown Phone Unavailable Care Team Providers Care Paper And Prints Restorer Name Role Phone LINSEY EDMOND MD PCP Insurance Providers Guarantor Francisco Patel Address [address] [place] [address] Email [email or web address] Payer [facility] Policy Number [id number] Subscriber's Name Francisco Patel Relationship 18 Self / Same As Patient Effective Date 15 [facility] Policy Number [id number] Subscriber's Name Nakul Patel Relationship 01 Group Number [id number] Effective Date 15 Advance Directives Directive Response Recorded Date/Time Advance Directives No 08/25/15 9:45am Chief Complaint and Reason for Visit Chief Complaint Chest Pain Reason for Visit Epigastric abdominal pain Constipation Problems Medical Problem Onset Date Status Diabetes mellitus type 2 in obese Unknown Chronic Hyperlipidemia LDL goal <100 Unknown Chronic Hypothyroidism 05/16/2013 Chronic Migraine Unknown Acute Obesity (BMI 30-39.9) Unknown Chronic Tobacco dependence Unknown Chronic Past Problems Medical Problem Onset Date Status Acute bronchitis Unknown Acute Acute bronchitis Unknown Acute Anxiety attack Unknown Acute Anxiety attack Unknown Acute Asthma exacerbation Unknown Acute Asthma exacerbation Unknown Acute Candidiasis of female genitalia Unknown Acute Constipation Unknown Acute Cough Unknown Acute Encounter for cervical Pap smear with pelvic exam 05/16/2013 Acute Epigastric abdominal pain Unknown Acute Granuloma annulare Unknown Chronic Heavy menses 05/16/2013 Acute Left-sided chest wall pain Unknown Acute Menopausal symptoms 05/16/2013 Acute Otitis media 02/07/2014 Acute Preventative health care 05/16/2013 Acute Right shoulder pain Unknown Acute Skin lesion of left arm 05/16/2013 Acute Tobacco dependence Unknown Acute Weight loss counseling, encounter for Unknown Acute Wheezing 02/07/2014 Acute Medications Current Home Medications Medication Dose Units Route Directions Days Qty Instructions Start Date Acetam/Butalbital/Caffeine/Codeine (Fioricet W/ Codeine) [id number] Mg Capsule 1 Capsule Oral Every 6 Hours As Needed as needed for For Headache/Migraine 30 Capsule DO NOT EXCEED 6 CAPSULES/24 HOURS 11/19/15 Acetaminophen/Hydrocodone Bitart ([place]) 5 Mg/325 Mg Tablet 1-2 Tablet Oral Every 4-6 Hours As Needed as needed for For Pain 30 Tablet 01/28/16 Albuterol (Albuterol Sulfate Neb) 2.5 Mg/3 Ml Vial.neb 1 Vial Nebulize Every 4-6 Hours As Needed as needed for Shortness Of Breath/Wheezing 90 Vial 06/02/15 Bupropion Hcl (Bupropion Hcl Er (Smoking Det)) 150 Mg Tab.er.12h 150 Mg Oral Twice A Day 60 Tablet 01/11/16 Cetirizine Hcl (Zyrtec) 10 Mg Capsule 10 Mg Oral Daily Ibuprofen 800 Mg Tablet 800 Mg Oral Every 8 Hours As Needed 90 Tablet 07/05/12 Lisinopril 10 Mg Tablet 10 Mg Oral Daily 90 Tablet 09/04/15 Metformin Hcl (Glucophage) 500 Mg Tablet 500 Mg Oral Twice Daily With Meals 180 Tablet 10/12/15 Rizatriptan Benzoate (Maxalt Boiling House Hand) 10 Mg Tab.rapdis 10 Mg Oral As Directed 10 Tablet 11/19/15 Past Home Medications Medication Directions Ordered Status Acetaminophen/Hydrocodone Bitart ([place]) 5 Mg/325 Mg Tablet, 1-2 Tab Oral Every 4 Hours As Needed as needed for For Pain Discontinued Acetaminophen/Hydrocodone Bitart ([place]) 5 Mg/325 Mg Tablet, 1-2 Tab Oral [...] Oral Three Times A Day 10/09/12 Discontinued Amoxicillin 500 Mg Capsule, 500 Mg Oral Three Times A Day 02/09/11 Discontinued Ampicillin 500 Mg Capsule, 500 Mg Oral Twice A Day 04/16/15 Discontinued Azithromycin (Zpak) 250 Mg Tablet, 1 Pack Oral As Directed 08/20/15 Discontinued Azithromycin (Zpak) 250 Mg Tablet, 250 Mg Oral Pack 07/17/13 Discontinued Benzonatate (Tessalon Perles) 100 Mg Capsule, 100 Mg Oral Every 4 Hours as needed for For Coughing 02/14/14 Discontinued Ceftriaxone Sodium (Rocephin) 1 Gm Vial, 1 Gm Intramusc Once 02/07/14 Discontinued Cefuroxime Axetil (Ceftin) 250 Mg Tablet, 250 Mg Oral Twice A Day 02/07/14 Discontinued Ciprofloxacin Hcl (Cipro) 500 Mg Tablet, 500 Mg Oral Every 12 Hours 04/17/12 Discontinued Ciprofloxacin Hcl (Ciprofloxacin Hcl Opth) 0.3 % Solution, 4 Drop Ophthalmic Four Times Daily 03/28/12 Discontinued Citalopram Hydrobromide (Citalopram Hbr) 20 Mg Tablet, 20 Mg Oral Daily 10/09/12 Discontinued Fluconazole (Diflucan) 100 Mg Tablet, 100 [...] Discontinued Influenza Virus Vaccine Quadrival (Fluarix Quad 2015-) 60 Mcg/0.5 Ml Syringe, 60 Mcg Intramusc Once 11/19/15 Discontinued Ipratropium [place] (Atrovent Neb Soln) 0.02 % Soln, 1 Vial Inhalation Every 6 Hours As Needed 02/09/11 Discontinued Ketorolac Tromethamine 60 Mg/2 Ml Vial, 60 Mg Intramusc Once 11/04/15 Discontinued Lisinopril 10 Mg Tablet, 10 Mg [...] Vial, 80 Mg Intramusc Once 02/07/14 Discontinued Nystatin 0.1 Million Unit/Gm Cream, 1 Applic Topical Twice A Day 08/04/14 Discontinued Phentermine Hcl 37.5 Mg Tablet, 37.5 Mg Oral Every Morning Discontinued Phentermine Hcl 37.5 Mg Tablet, 37.5 Mg Oral Daily 10/04/13 Discontinued Phentermine Hcl 37.5 Mg Capsule, 37.5 Mg Oral Every Morning 09/03/13 Discontinued Phentermine Hcl 37.5 Mg Capsule, 37.5 Mg Oral Every Morning 08/28/13 Discontinued Phentermine Hcl 37.5 Mg Capsule, 37.5 Mg Oral Every Morning 07/30/13 Discontinued Prednisone (Prednisone 40 Mg Burst) 20 [...] Recorded Date/Time Onset Date Status Marital Status 01/30/2016 10:11pm Not Applicable Not Applicable Smoking Status Start Date Stop Date Current every day smoker Hospital Discharge Instructions No hospital discharge instruction information available. Plan of Care Discharge Date 01/31/16 1:34am Disposition 01 HOME/SELF CARE Condition at Discharge Good Instructions/Education Provided Constipation (ED) Epigastric Pain (ED) Prescriptions See Medication Section Referrals LINSEY EDMOND MD Address: [address] [place] [address] Additional Instructions/Education Place 238 g of MiraLAX (whole container) in 64 ounces of Gatorade, stir well and drink 8 ounces every 15 minutes, have the entire amount completed within 3 hours Use Dulcolax kart-tti-etkjaik suppository as directed If you do not have significant bowel movements after this contact your primary care provider or return to the emergency department. You should increase fiber in your diet. Fiber Choice fiber tablets or Fiber Gummies are a good option and may be obtained at any pharmacy over the counter. Take Tylenol and Motrin for pain and fever Continue any previously prescribed medications Increase fluid intake Follow-up with your primary care physician in 3-4 days or sooner if symptoms persist. Return to the emergency department for any worsening or persistent symptoms. Functional Status No functional status information available. Allergies, Adverse Reactions, Alerts No known allergies. Immunizations Immunization Event Date Type Not Given Reason Dose Number Lot Number Packing Attendant Fluarix Quadrivalent 16-17 (3-64y) 11/19/15 Administered 1 [id number] SANOFI Vital Signs Acute Vital Signs Vital Response Date/Time Height (Feet) 5 feet 01/30/2016 10:06pm Height (Inches) 5.00 inches 01/30/2016 10:06pm Height (Calculated Centimeters) 165.799235 cm 01/30/2016 10:06pm Weight (Pounds) 220.0 01/30/2016 10:06pm Weight (Ounces) 1 oz 01/28/2016 11:17am Weight (Calculated Kilograms) 99.902579 kg 01/30/2016 10:06pm Weight (Calculated Grams) 01566.322 gm 01/30/2016 10:06pm Body Mass Index (BMI) 36 01/30/2016 10:06pm Body Mass Index (BMI) Classification Obese 01/30/2016 10:06pm Temperature (Fahrenheit) 99.0 degrees F (96.8 - 100.4) 01/30/2016 10:06pm Blood Pressure Systolic 135 mm Hg (100 - 140) 01/31/2016 1:28am Blood Pressure Diastolic 80 mm Hg (60 - 100) 01/31/2016 1:28am Pulse Rate (adult) 64 beats per minute (60 - 100) 01/31/2016 1:28am Respiratory Rate 14 breaths per minute (12 - 24) 01/28/2016 4:35pm Respirations 16 breaths per minute (12 - 20) 01/31/2016 1:28am O2 Sat by Pulse Oximetry 97 % (90 - 100) 01/31/2016 1:28am Ambulatory Vital Signs Vital Response Date/Time Weight 224 lbs 01/11/2016 1:26pm Temperature 97.1 degrees F 01/11/2016 1:26pm Blood Pressure, Sitting, Right Arm 132/82 mm Hg 01/11/2016 1:26pm Pulse Rate 84 bpm 01/11/2016 1:26pm Respiration Rate 15 bpm 01/11/2016 1:26pm Pulse Oximetry Pulse Oximetry 01/11/2016 1:26pm Results Laboratory Results Test Name Result Units Flags Reference Collection Date/Time Result Date/Time Comments B-Type Natriuretic Peptide 20 PG/ML 0-100 03/25/2008 1:08pm 03/25/2008 2:03pm Follicle Stimulating Hormone 12.9 mIU/mL . 05/16/2013 10:52am 05/17/2013 7:16am Follicular phase 3.5 - 12.5 Ovulation phase 4.7 - 21.5 Luteal phase 1.7 - 7.7 Postmenopausal 25.8 - 134.8 Performed at: [facility] [address], [place], [place] [id number] Assurance Officer: Yamilet Sarmiento MD, Phone: [phone] Luteinizing Hormone 6.5 mIU/mL . 05/16/2013 10:52am 05/17/2013 7:16am Follicular phase 2.4 - 12.6 Ovulation phase 14.0 - 95.6 Luteal phase 1.0 - 11.4 Postmenopausal 7.7 - 58.5 Surgical Pathology 05/16/2013 10:45am 05/17/2013 2:04am N/A 4-7-14 05/16/2013 10:45am 05/20/2013 5:50pm Differential Total Cells Counted 100 100 12/15/2013 11:05pm 12/15/2013 11:57pm Neutrophils % (Manual) 40 % 40-75 12/15/2013 11:05pm 12/15/2013 11:57pm Band Neutrophils % 1 % 0-8 12/15/2013 11:05pm 12/15/2013 11:57pm Lymphocytes % (Manual) 51 % H 18-47 12/15/2013 11:05pm 12/15/2013 11:57pm Monocytes % (Manual) 5 % 0-10 12/15/2013 11:05pm 12/15/2013 11:57pm Eosinophils % (Manual) 3 % 0-6 12/15/2013 11:05pm 12/15/2013 11:57pm Neutrophils # (Manual) 4.2 X10-3/UL 1.9-8.1 12/15/2013 11:05pm 12/15/2013 11:57pm Band Neutrophils # 0.1 X10-3/UL 0.0-0.9 12/15/2013 11:05pm 12/15/2013 11:57pm Lymphocytes # (Manual) 5.3 X10-3/UL H 0.9-5.1 12/15/2013 11:05pm 12/15/2013 11:57pm Monocytes # (Manual) 0.5 X10-3/UL 0.1-0.9 12/15/2013 11:05pm 12/15/2013 11:57pm Eosinophils # (Manual) 0.3 X10-3/UL 0.0-0.6 12/15/2013 11:05pm 12/15/2013 11:57pm Red Cell Morphology Comment NORMAL 12/15/2013 11:05pm 12/15/2013 11:57pm D-Dimer < 200 NG/ML 0-400 12/15/2013 11:20pm 12/16/2013 12:04am Free Thyroxine 0.99 NG/DL 0.76-1.46 12/15/2013 11:05pm 12/16/2013 12:05am KE-Smg-U-Type Natriuretic Peptide 47 PG/ML 0.00-450 12/15/2013 11:05pm 12/15/2013 11:48pm N-Terminal Pro-Brain Natriuretic Peptide CHF is excluded when NT-Pro-BNP: <300 pg/ml CHF is likely when NT-Pro-BNP: >450 pg/ml patients <50 years >900 pg/ml patients 50-75 years >1800 pg/ml patients >75 years Results of this test should always be interpreted in conjunction with the patient's medical history, clinical presentation and other findings. Influenza Type A Antigen NEG NEGATIVE 02/14/2014 12:15am 02/14/2014 12:46am Influenza Type B Antigen NEG NEGATIVE 02/14/2014 12:15am 02/14/2014 12:46am Cholesterol Level 182 MG/DL 150-200 08/25/2015 9:55am 08/25/2015 1:21pm Triglycerides Level 143 MG/DL 30-200 08/25/2015 9:55am 08/25/2015 1:21pm Thyroid Stimulating Hormone (TSH) 1.05 MIU/L 0.35-4.94 08/25/2015 9:55am 08/25/2015 1:21pm HDL Cholesterol 41 MG/DL 35-60 08/25/2015 9:55am 08/25/2015 1:21pm LDL Cholesterol 128 MG/DL H <100 08/25/2015 9:55am 08/25/2015 1:21pm VLDL Cholesterol, Calculated 29 5-40 08/25/2015 9:55am 08/25/2015 1:21pm Cholesterol/HDL Ratio 4 % 0-5 08/25/2015 9:55am 08/25/2015 1:21pm Hemoglobin A1c 6.1 % 4.5-6.5 08/25/2015 9:55am 08/25/2015 11:33am Glucose Control Index: Poor >8.5 Good 7.5-8.5 Excellent 6.5-7.5 Non-diabetic <6.5 Urine Microalbumin 14.0 MG/L <5.0-20.0 08/25/2015 1:50pm 08/25/2015 4:13pm Urine Random Creatinine 242.15 MG/DL H 47-110 08/25/2015 1:50pm 08/25/2015 4:13pm Urine Microalbumin/Creatinine Ratio 5.7 MG/G <30 08/25/2015 1:50pm 08/25/2015 4:13pm White Blood Count 11.6 X10-3/UL H 4.8-10.8 01/30/2016 11:30pm 01/30/2016 11:44pm Red Blood Count 4.39 X10-6/UL 4.20-5.40 01/30/2016 11:30pm 01/30/2016 11:44pm Hemoglobin 13.8 G/DL 12.0-16.0 01/30/2016 11:30pm 01/30/2016 11:44pm Hematocrit 42.0 % 37.0-47.0 01/30/2016 11:30pm 01/30/2016 11:44pm Mean Corpuscular Volume 95.5 FL 80.0-99.0 01/30/2016 11:30pm 01/30/2016 11:44pm Mean Corpuscular Hemoglobin 31.5 PG H 27.0-31.0 01/30/2016 11:30pm 01/30/2016 11:44pm Mean Corpuscular Hemoglobin Concent 33.0 G/DL 33.0-37.0 01/30/2016 11:30pm 01/30/2016 11:44pm Red Cell Distribution Width 11.7 % 11.5-14.5 01/30/2016 11:30pm 01/30/2016 11:44pm Platelet Count 336 X10-3/UL 130-400 01/30/2016 11:30pm 01/30/2016 11:44pm Neutrophils (%) (Auto) 53.9 % 40.0-75.0 01/30/2016 11:30pm 01/30/2016 11:44pm Lymphocytes (%) (Auto) 36.0 % 18.0-47.0 01/30/2016 11:30pm 01/30/2016 11:44pm Monocytes (%) (Auto) 5.9 % 0.0-10.0 01/30/2016 11:30pm 01/30/2016 11:44pm Eosinophils (%) (Auto) 3.0 % 0.0-6.0 01/30/2016 11:30pm 01/30/2016 11:44pm Basophils (%) (Auto) 1.3 % 0.0-2.0 01/30/2016 11:30pm 01/30/2016 11:44pm Neutrophils # (Auto) 6.3 X10-3/UL 1.9-8.1 01/30/2016 11:30pm 01/30/2016 11:44pm Lymphocytes # (Auto) 4.2 X10-3/UL 0.9-5.1 01/30/2016 11:30pm 01/30/2016 11:44pm Monocytes # (Auto) 0.7 X10-3/UL 0.1-0.9 01/30/2016 11:30pm 01/30/2016 11:44pm Eosinophils # (Auto) 0.3 X10-3/UL 0.0-0.6 01/30/2016 11:30pm 01/30/2016 11:44pm Basophils # (Auto) 0.1 X10-3/UL 0.0-0.2 01/30/2016 11:30pm 01/30/2016 11:44pm Prothrombin Time 11.7 SEC 9.9-12.1 01/30/2016 11:30pm 01/30/2016 11:53pm Prothromb Time International Ratio 1.1 01/30/2016 11:30pm 01/30/2016 11:53pm INR THERAPEUTIC RANGE GROUP A 2.0 - 3.0 GROUP B 2.5 - 3.5 INDICATIONS; INDICATIONS; Prophylaxis and treatment Mechanical prosthetic of venous thrombosis. valves. Treatment of pulmonary embolism. Prevention of systemic embolism. Tissue heart valves. Acute myocardial infarction. Valvular heart disease. Atrial fibrillation. Activated Partial Thromboplast Time 27.2 SEC 23.0-32.2 01/30/2016 11:30pm 01/30/2016 11:53pm Glucose Level 111 MG/DL H 70-105 01/30/2016 11:30pm 01/31/2016 12:15am Blood Urea Nitrogen 17.0 MG/DL 7.0-18.7 01/30/2016 11:30pm 01/31/2016 12:15am Creatinine 0.77 MG/DL 0.57-1.11 01/30/2016 11:30pm 01/31/2016 12:15am BUN/Creatinine Ratio 22 H 10-20 01/30/2016 11:30pm 01/31/2016 12:15am EGFR Other 92.9 * >59 01/30/2016 11:30pm 01/31/2016 12:15am *RESULT UNITS: ML/MIN/1.73 EGFR 107.1 * >59 01/30/2016 11:30pm 01/31/2016 12:15am *RESULT UNITS: ML/MIN/1.73 Aspartate Amino Transf (AST/SGOT) 16 U/L 5-34 01/30/2016 11:30pm 01/31/2016 12:15am Alanine Aminotransferase (ALT/SGPT) 18 U/L 0-55 01/30/2016 11:30pm 01/31/2016 12:15am Alkaline Phosphatase 51 IU/L 40-150 01/30/2016 11:30pm 01/31/2016 12:15am Total Bilirubin 0.30 MG/DL 0.0-1.0 01/30/2016 11:30pm 01/31/2016 12:15am Total Protein 6.6 G/DL 6.4-8.3 01/30/2016 11:30pm 01/31/2016 12:15am Albumin 3.8 g/dL 3.5-5.0 01/30/2016 11:30pm 01/31/2016 12:15am Albumin/Globulin Ratio 1.4 1.0-2.0 01/30/2016 11:30pm 01/31/2016 12:15am Globulin 2.8 G/DL 1.9-3.8 01/30/2016 11:30pm 01/31/2016 12:15am Calcium Level 9.5 MG/DL 8.4-10.2 01/30/2016 11:30pm 01/31/2016 12:15am Sodium Level 138 MMOL/L 136-145 01/30/2016 11:30pm 01/31/2016 12:15am Potassium Level 4.5 MMOL/L 3.5-5.1 01/30/2016 11:30pm 01/31/2016 12:15am Chloride Level 109 MMOL/L H 98-107 01/30/2016 11:30pm 01/31/2016 12:15am Carbon Dioxide Level 20.0 MMOL/L L 22-29 01/30/2016 11:30pm 01/31/2016 12:15am Anion Gap 14 MEQ/L 0-14 01/30/2016 11:30pm 01/31/2016 12:15am Creatine Kinase 39 U/L 29-168 01/30/2016 11:30pm 01/31/2016 12:15am Creatine Kinase MB 0.3 NG/ML 0.0-3.4 01/30/2016 11:30pm 01/31/2016 12:15am Troponin I < 0.02 NG/ML 0.00-0.06 01/30/2016 11:30pm 01/31/2016 12:15am TROPONIN I <=0.06 ng/mL Negative 0.07-0.25 ng/mL Intermediate >0.25 ng/mL Positive >0.6 ng/mL Critical Troponin I is cardiac specific. If present, indicates injury has occurred, indicating need to R/O myocardial infarct or high risk unstable angina (UA). Myoglobin ng/ml 18.3 NG/ML 10.0-106.0 01/30/2016 11:30pm 01/31/2016 12:15am Procedures Procedure Status Date Provider(s) ROUTINE VENIPUNCTURE Completed 12/15/13 CHEST X-RAY 1 VIEW FRONTAL Completed 12/15/13 COMPREHEN METABOLIC PANEL Completed 12/15/13 ASSAY OF CK (CPK) Completed 12/15/13 CREATINE MB FRACTION Completed 12/15/13 ASSAY OF MYOGLOBIN Completed 12/15/13 ASSAY OF NATRIURETIC PEPTIDE Completed 12/15/13 ASSAY OF FREE THYROXINE Completed 12/15/13 ASSAY THYROID STIM HORMONE Completed 12/15/13 ASSAY OF TROPONIN QUANT Completed 12/15/13 CHORIONIC GONADOTROPIN ASSAY Completed 12/15/13 BL SMEAR W/DIFF WBC COUNT Completed 12/15/13 COMPLETE CBC AUTOMATED Completed 12/15/13 FIBRIN DEGRADATION QUANT Completed 12/15/13 PROTHROMBIN TIME Completed 12/15/13 THROMBOPLASTIN TIME PARTIAL Completed 12/15/13 ELECTROCARDIOGRAM TRACING Completed 12/15/13 ELECTROCARDIOGRAM REPORT Completed 12/15/13 THER/PROPH/DIAG INJ IV PUSH Completed 12/15/13 TX/PRO/DX INJ NEW DRUG ADDON Completed 12/15/13 EMERGENCY DEPT VISIT Completed 12/15/13 EMERGENCY DEPT VISIT Completed 12/15/13 LORAZEPAM INJECTION Completed 12/15/13 ONDANSETRON HCL INJECTION Completed 12/15/13 CHEST X-RAY 2VW FRONTAL&LATL Completed 02/13/14 INFLUENZA ASSAY W/OPTIC Completed 02/13/14 AIRWAY INHALATION TREATMENT Completed 02/13/14 AIRWAY INHALATION TREATMENT Completed 02/13/14 THER/PROPH/DIAG INJ SC/IM Completed 02/13/14 EMERGENCY DEPT VISIT Completed 02/13/14 EMERGENCY DEPT VISIT Completed 02/13/14 DIPHENHYDRAMINE HCL INJECTIO Completed 02/13/14 PHENTOLAINE MESYLATE INJ Completed 02/13/14 METHYLPREDNISOLONE INJECTION Completed 02/13/14 ALBUTEROL COMP UNIT Completed 02/13/14 ALBUTEROL NON-COMP UNIT Completed 02/13/14 TRANSVAGINAL US NON-OB Completed 03/11/14 US EXAM PELVIC COMPLETE Completed 03/11/14 HYSTEROSCOPY ABLATION Completed 03/21/14 JONN TERRAZAS MD SUCCINYCHOLINE CHLORIDE INJ Completed 03/21/14 CIPROFLOXACIN IV Completed 03/21/14 INJ MIDAZOLAM HYDROCHLORIDE Completed 03/21/14 Completed 03/21/14 METOCLOPRAMIDE HCL INJECTION Completed 03/21/14 FENTANYL CITRATE INJECITON Completed 03/21/14 FENTANYL CITRATE INJECITON Completed 03/21/14 NORMAL SALINE SOLUTION INFUS Completed 03/21/14 NORMAL SALINE SOLUTION INFUS Completed 03/21/14 ROUTINE VENIPUNCTURE Completed 03/17/14 HEMATOCRIT Completed 03/17/14 HEMOGLOBIN Completed 03/17/14 ROUTINE VENIPUNCTURE Completed 08/25/15 COMPREHEN METABOLIC PANEL Completed 08/25/15 LIPID PANEL Completed 08/25/15 MICROALBUMIN QUANTITATIVE Completed 08/25/15 ASSAY OF URINE CREATININE Completed 08/25/15 GLYCOSYLATED HEMOGLOBIN TEST Completed 08/25/15 ASSAY THYROID STIM HORMONE Completed 08/25/15 X-RAY EXAM OF KNEE 3 Completed 11/19/15 MEASURE BLOOD OXYGEN LEVEL Completed 11/25/15 CHEST X-RAY 2VW FRONTAL&LATL Completed 12/08/15 AIRWAY INHALATION TREATMENT Completed 12/08/15 EMERGENCY DEPT VISIT Completed 12/08/15 EMERGENCY DEPT VISIT Completed 12/08/[address] ORAL 1MG Completed 12/08/15 MRI JNT OF LWR EXTRE W/O DYE Completed 12/21/15 Knee arthroscopy Completed 01/28/16 ALICIA VICTORIA DO Encounters Encounter Location Arrival/Admit Date Discharge/Depart Date Attending Provider Departed Emergency Room [facility] 01/30/16 9:46pm 01/31/16 1:34am JD TRACY PA-C Registered Surgical Day Care [facility] 01/28/16 10:51am ALICIA VICTORIA DO Office Visit [facility] 01/11/16 1:30pm LINSEY EDMOND MD Registered Practice [facility] 01/11/16 1:30pm LINSEY EDMOND MD Office Visit [facility] 12/28/15 1:00pm ALICIA VICTORIA DO Registered Clinic [facility] 12/21/15 1:14pm ALICIA VICTORIA DO Departed Emergency Room [facility] 12/08/15 5:00pm 12/08/15 6:24pm CHON KENDRICK DO Office Visit [facility] 12/07/15 10:30am ALICIA VICTORIA DO Departed Emergency Room [facility] 12/04/15 10:41am 12/04/15 1:25pm KUSH TRACY PA-C Registered Clinic [facility] 11/25/15 6:45pm LINSEY EDMOND MD Registered Clinic [facility] 11/19/15 10:09am LINSEY EDMOND MD Office Visit [facility] 11/19/15 9:30am LINSEY EDMOND MD Office Visit [facility] 11/04/15 12:00pm MACY HERBERT MD Registered Clinic [facility] 08/25/15 9:47am LINSEY EDMOND MD Office Visit [facility] 08/20/15 11:15am LINSEY EDMOND MD Office Visit [facility] 06/02/15 9:00am LINSEY EDMOND MD Office Visit [facility] 04/16/15 9:45am JOHN RUSHING DO Office Visit [facility] 08/04/14 11:00am SAMMY TORO PA-C Departed Surgical Day Care [facility] 03/21/14 6:09am 03/21/14 1:00pm FASTJONN MD Registered Clinic [facility] 03/17/14 1:44pm FASTJONN MD Registered Clinic [facility] 03/11/14 12:54pm FASTJONN MD Departed Emergency Room [facility] 02/13/14 11:42pm 02/14/14 2:45am JACKSON NAVARRETE Office Visit [facility] 02/07/14 2:45pm SHILA ELIZONDO DO Registered Emergency Room [facility] 12/15/13 10:45pm ERIC GRANDA PA-C Office Visit [facility] 10/04/13 8:30am LINSEY EDMOND MD Office Visit [facility] 09/03/13 8:30am LINSEY EDMOND MD Office Visit [facility] 07/30/13 9:30am LINSEY EDMOND MD Departed Emergency Room [facility] 07/17/13 5:16pm 07/17/13 7:31pm KUSH TRACY PA-C Office Visit [facility] 06/05/13 8:30am LINSEY EDMOND MD Registered Referred [facility] 05/16/13 3:19pm LINSEY EDMOND MD Registered Clinic [facility] 05/16/13 10:45am LINSEY EDMOND MD Office Visit [facility] 05/16/13 10:00am LINSEY EDMOND MD Departed Emergency Room [facility] 05/13/13 4:43am 05/13/13 6:06am KUSH TRACY PA-C Office Visit [facility] 10/09/12 11:15am BRYAN ALDANA MD Office Visit [facility] 07/05/12 2:30pm LINSEY EDMOND MD Departed Emergency Room [facility] 04/17/12 1:31am 04/17/12 3:30am ERIC GRANDA PA-C Office Visit [facility] 03/28/12 9:45am BASIL CRUZ MD Registered Clinic [facility] 12/27/11 1:57pm AMARJIT SAINZ MD Departed Emergency Room [facility] 05/08/11 6:44pm 05/08/11 7:45pm JONN TRIANA MD Departed Emergency Room [facility] 02/09/11 4:18am 02/09/11 5:09am LETY COSTELLO DO Office Visit [facility] 06/17/10 3:00pm JONO AVERY MD Office Visit [facility] 04/22/10 3:15pm JONO AVERY MD Office Visit [facility] 03/18/10 4:00pm JONO AVERY MD Departed Emergency Room [facility] 02/02/10 9:01am 02/02/10 10:24am JONO AVERY MD Office Visit [facility] 01/05/10 8:45am JONO AVERY MD Departed Emergency Room [facility] 12/15/09 4:02pm 12/15/09 5:25pm LETY COSTELLO DO Office Visit [facility] 12/08/09 4:30pm JONO AVERY MD Discharged Recurring [facility] 09/24/09 11:59am 10/13/09 11:59pm NANCY MARTINEZ MD Office Visit [facility] 03/24/09 2:30pm BRYAN ALDANA MD Office Visit [facility] 03/18/09 10:30am MACY HERBERT MD Office Visit [facility] 01/29/09 11:00am BRYAN ALDANA MD Office Visit [facility] 01/26/09 11:00am BRYAN ALDANA MD Registered Clinic [facility] 01/02/09 4:44pm Registered Clinic [facility] 03/25/08 12:59pm Departed Emergency Room [facility] 12:00am 07/19/08 9:30pm Departed Emergency Room [facility] 12:00am 09/28/08 3:00pm Recent Diagnosis
--- OUTSIDE RECORDS SUMMARY | 2018-09-11 18:33 | XMS REPORT | Continuity of Care Document ---
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 Name Role Phone LINSEY EDMOND MD PCP Insurance Providers Guarantor Francisco Patel Address [address] [address] Email [email or web address] [employer] Policy Number [id number] Subscriber's Name Francisco Patel Relationship 18 Self / Same As Patient Advance Directives Directive Response Recorded Date/Time Advance Directives No 08/25/15 9:45am Problems Medical Problem Onset Date Status Diabetes [...] Instructions Start Date Acetam/Butalbital/Caffeine/Codeine (Fioricet W/ Codeine) [id number] Mg Capsule 1 Capsule Oral Every 6 Hours As Needed as needed for For Headache/Migraine 30 Capsule DO NOT EXCEED 6 CAPSULES/24 HOURS 11/19/15 Acetaminophen/Hydrocodone Bitart (Julian) 5 Mg/325 Mg Tablet 1-2 Tablet Oral Every 4-6 Hours As Needed as needed for For Pain 30 Tablet 01/28/16 Albuterol (Albuterol Sulfate Neb) 2.5 Mg/3 Ml Vial.neb 1 Vial Nebulize Every 4-6 Hours As Needed as needed for Shortness Of Breath/Wheezing 90 Vial 06/02/15 Azithromycin (Zpak) 250 Mg Tablet 1 Pack Oral As Directed 1 Pack TAKE TWO TABLETS BY MOUTH TODAY, THEN TAKE ONE TABLET ONCE DAILY FOR 4 DAYS. 03/11/16 Bupropion Hcl (Bupropion Hcl Er (Smoking Det)) [...] Twice Daily With Meals 180 Tablet 10/12/15 Prednisone (Prednisone Taper 3X3,2X3,1X3) 20 Mg Tablet 20 Mg Oral As Directed 18 Tablet 3 TABS ONCE DAILY x 3 DAYS, 2 TABS ONCE DAILY x 3 DAYS, 1 TAB ONCE DAILY x 3 DAYS 03/11/16 Promethazine Hcl/Codeine (Promethazine W/ Codeine) 6.25-10 Mg/5 Ml Syrup 5-10 Ml Oral Every 6 Hours 120 Milliliter TAKE WITH FOOD OR MILK 03/11/16 Rizatriptan Benzoate (Maxalt Candlemaking Laborer) 10 Mg Tab.rapdis 10 Mg Oral As Directed 10 Tablet 11/19/15 Past Home Medications Medication Directions Ordered Status Acetaminophen/Hydrocodone Bitart (Julian) 5 Mg/325 Mg Tablet, 1-2 Tab Oral Every 4 Hours As Needed as needed for For Pain Discontinued Acetaminophen/Hydrocodone Bitart (Julian) 5 Mg/325 Mg Tablet, 1-2 Tab Oral [...] Vial, 1 Ml Intraartic Once 03/09/16 Discontinued Ceftriaxone Sodium (Rocephin) 1 Gm Vial, [...] 60 Mcg Intramusc Once 11/19/15 Discontinued Ipratropium [place] (Atrovent Neb Soln) 0.02 % Soln, 1 [...] Take As Directed 12/31/13 Discontinued Social History No social history information available. Hospital Discharge Instructions No hospital discharge instruction information available. Plan of Care Prescriptions See Medication Section Functional Status No functional status information available. Allergies, Adverse Reactions, Alerts No known allergies. 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 Fluarix Quadrivalent [id number] ([id number]) 11/19/15 Administered 1 [id number] eCardio Vital Signs Acute Vital Signs Vital Response Date/Time Height (Feet) 5 feet 01/30/2016 10:06pm Height (Inches) 5.00 inches 01/30/2016 10:06pm Height (Calculated Centimeters) 165.276918 cm 01/30/2016 10:06pm Weight (Pounds) 220.0 01/30/2016 10:06pm Weight (Ounces) 1 oz 01/28/2016 11:17am Weight (Calculated Kilograms) 99.121552 kg 01/30/2016 10:06pm Weight (Calculated Grams) 10470.322 gm 01/30/2016 10:06pm Body Mass Index (BMI) [...] 1:28am Ambulatory Vital Signs Vital Response Date/Time Height 5 ft 5 in 03/11/2016 4:05pm Weight 226 lbs 03/11/2016 4:05pm Temperature, Tympanic 97.6 degrees F 03/11/2016 4:05pm Blood Pressure, Sitting, Left Arm 118/80 mm Hg 03/11/2016 4:05pm Pulse Rate 99 bpm 03/11/2016 4:05pm Body Surface Area 2.22 m2 03/11/2016 4:05pm Body Mass Index 37.6 kg/m2 03/11/2016 4:05pm Pulse Oximetry Pulse Oximetry 03/11/2016 4:05pm Results Laboratory Results Test Name Result Units Flags Reference Collection Date/Time Result Date/Time Comments B-Type Natriuretic Peptide 20 PG/ML 0-100 03/25/2008 1:08pm 03/25/2008 2:03pm Follicle Stimulating Hormone 12.9 mIU/mL . 05/16/2013 10:52am 05/17/2013 7:16am Follicular phase 3.5 - 12.5 Ovulation phase 4.7 - 21.5 Luteal phase 1.7 - 7.7 Postmenopausal 25.8 - 134.8 Performed at: [facility] [id number] Candy Wrapping Machine Operator: Yamilet Sarmiento MD, Phone: [phone] Luteinizing Hormone 6.5 mIU/mL . 05/16/2013 10:52am 05/17/2013 7:16am Follicular phase 2.4 - 12.6 Ovulation phase 14.0 - 95.6 Luteal phase 1.0 - 11.4 Postmenopausal 7.7 - 58.5 Surgical Pathology 05/16/2013 10:45am 05/17/2013 2:04am N/A -714 05/16/2013 10:45am 05/20/2013 5:50pm Differential Total Cells [...] 0.99 NG/DL 0.76-1.46 12/15/2013 11:05pm 12/16/2013 12:05am JT-Jav-Z-Type Natriuretic Peptide 47 PG/ML 0.00-450 12/15/2013 11:05pm [...] 11/19/15 MEASURE BLOOD OXYGEN LEVEL Completed 11/25/15 AIRWAY INHALATION TREATMENT Completed 12/04/15 THER/PROPH/DIAG INJ IV PUSH Completed 12/04/15 EMERGENCY DEPT VISIT Completed 12/04/15 EMERGENCY DEPT VISIT Completed 12/04/15 KETOROLAC TROMETHAMINE INJ Completed 12/04/15 METHYLPREDNISOLONE INJECTION Completed 12/04/15 CHEST X-RAY 2VW FRONTAL&LATL Completed 12/08/15 AIRWAY INHALATION TREATMENT Completed 12/08/15 EMERGENCY DEPT VISIT Completed 12/08/15 EMERGENCY DEPT VISIT Completed 12/08/[address] ORAL 1MG Completed 12/08/15 MRI JNT OF LWR EXTRE W/O DYE Completed 12/21/15 KNEE ARTHROSCOPY/SURGERY Completed 01/28/16 ALICIA VICTORIA DO KNEE ARTHROSCOPY/SURGERY Completed 01/28/16 ALICIA VICTORIA DO ELECTROCARDIOGRAM TRACING Completed 01/28/16 ELECTROCARDIOGRAM REPORT Completed 01/28/16 SUCCINYCHOLINE CHLORIDE INJ Completed 01/28/16 CEFAZOLIN SODIUM INJECTION Completed 01/28/16 KETOROLAC TROMETHAMINE INJ Completed 01/28/16 INJ MIDAZOLAM HYDROCHLORIDE Completed 01/28/16 ONDANSETRON HCL INJECTION Completed 01/28/16 Completed 01/28/16 NEOSTIGMINE METHYLSLFTE INJ Completed 01/28/16 METOCLOPRAMIDE HCL INJECTION Completed 01/28/16 FENTANYL CITRATE INJECITON Completed 01/28/16 FENTANYL CITRATE INJECITON Completed 01/28/16 DRUGS UNCLASSIFIED INJECTION Completed 01/28/16 NORMAL SALINE SOLUTION INFUS Completed 01/28/16 NORMAL SALINE SOLUTION INFUS Completed 01/28/16 EXCISION OF LEFT KNEE JOINT, PERC ENDO APPROACH Completed 01/28/16 ALICIA VICTORIA DO EXTIRPATION OF MATTER FROM L KNEE JT, PERC ENDO APPROACH Completed 01/28/16 ALICIA VICTORIA DO ROUTINE VENIPUNCTURE Completed 01/30/16 X-RAY EXAM SERIES ABDOMEN Completed 01/30/16 COMPREHEN METABOLIC PANEL Completed 01/30/16 ASSAY OF CK (CPK) Completed 01/30/16 CREATINE MB FRACTION Completed 01/30/16 ASSAY OF MYOGLOBIN Completed 01/30/16 ASSAY OF TROPONIN QUANT Completed 01/30/16 COMPLETE CBC W/AUTO DIFF WBC Completed 01/30/16 PROTHROMBIN TIME Completed 01/30/16 THROMBOPLASTIN TIME PARTIAL Completed 01/30/16 ELECTROCARDIOGRAM TRACING Completed 01/30/16 ELECTROCARDIOGRAM REPORT Completed 01/30/16 HYDRATE IV INFUSION ADD-ON Completed 01/30/16 THER/PROPH/DIAG INJ IV PUSH Completed 01/30/16 EMERGENCY DEPT VISIT Completed 01/30/16 EMERGENCY DEPT VISIT Completed 01/30/16 INJ PANTOPRAZOLE SODIUM, VIA Completed 01/30/16 NORMAL SALINE SOLUTION INFUS Completed 01/30/16 PT EVALUATION Completed 02/12/16 THERAPEUTIC EXERCISES Completed 02/12/16 Encounters Encounter Location Arrival/Admit Date Discharge/Depart Date Attending Provider Office Visit [facility] 03/11/16 3:00pm ALANIS VIRGEN PAC Registered Practice [facility] 03/11/16 3:00pm ALANIS VIRGEN PAC Office Visit [facility] 03/09/16 10:30am SILVESTRE PEDROZA PAC Discharged Recurring [facility] 03/08/16 8:30am 03/15/16 11:59pm ALICIA VICTORIA DO Discharged Recurring [facility] 02/12/16 7:51am 02/13/16 11:59pm ALICIA VICTORIA DO Office Visit [facility] 02/10/16 3:45pm SILVESTRE PEDROZA Departed Emergency Room [facility] 01/30/16 9:46pm 01/31/16 1:34am JD TRACY PA-C Registered [facility] Day [facility] 01/28/16 10:51am ALICIA VICTORIA DO Office Visit [facility] 01/11/16 1:30pm LINSEY EDMOND MD Office Visit [facility] 12/28/15 1:00pm ALICIA VICTORIA DO Registered Clinic [facility] 12/21/15 1:14pm ALICIA VICTORIA DO Departed Emergency Room [facility] 12/08/15 5:00pm 12/08/15 6:24pm CHON KENDRICK DO Office Visit [facility] 12/07/15 10:30am ALICIA VICTORIA DO Departed Emergency Room [facility] 12/04/15 10:41am 12/04/15 1:25pm KUSH TRACY PA-C Registered Clinic [facility] 11/25/15 6:45pm LINSEY EDMOND MD Registered Clinic [facility] 11/19/15 10:09am LINSEY EDMOND MD Office Visit [facility] 11/19/15 9:30am LINSEY EDMOND MD Office Visit [facility] 11/04/15 12:00pm MACY HERBERT MD Registered Clinic [facility] 08/25/15 9:47am LINSEY EDMOND MD Office Visit [facility] 08/20/15 11:15am LINSEY EDMOND MD Office Visit [facility] 06/02/15 9:00am LINSEY EDMOND MD Office Visit [facility] 04/16/15 9:45am JOHN RUSHING DO Office Visit [facility] 08/04/14 11:00am SAMMY TORO PA-C Departed Surgical Day Care [facility] 03/21/14 6:09am 03/21/14 1:00pm JONN TERRAZAS MD Registered Clinic [facility] 03/17/14 1:44pm JONN TERRAZAS MD Registered Clinic [facility] 03/11/14 12:54pm JONN TERRAZAS MD Departed Emergency Room [facility] 02/13/14 11:42pm 02/14/14 2:45am JACKSON NAVARRETE Office Visit [facility] 02/07/14 2:45pm SHILA ELIZONDO DO Registered Emergency Room [facility] 12/15/13 10:45pm ERIC GRANDA PA-C Office Visit [facility] 10/04/13 8:30am LINSEY EDMOND MD Office Visit [facility] 09/03/13 8:30am LINSEY EDMOND MD Office Visit [facility] 07/30/13 9:30am LINSEY EDMOND MD Departed Emergency Room [facility] 07/17/13 5:16pm 07/17/13 7:31pm KUSH TRACY PA-C Office Visit [facility] 06/05/13 8:30am LINSEY EDMOND MD Registered [facility] 05/16/13 3:19pm LINSEY EDMOND MD Registered Clinic [facility] 05/16/13 10:45am LINSEY EDMOND MD Office Visit [facility] 05/16/13 10:00am LINSEY EDMOND MD Departed Emergency Room [facility] 05/13/13 4:43am 05/13/13 6:06am KUSH TRACY PA-C Office Visit [facility] 10/09/12 11:15am BRYAN ALDANA MD Office Visit [facility] 07/05/12 2:30pm LINSEY EDMOND MD Departed Emergency Room [facility] 04/17/12 1:31am 04/17/12 3:30am ERIC GRANDA PA-C Office Visit [facility] 03/28/12 9:45am BASIL CRUZ MD Registered Clinic [facility] 12/27/11 1:57pm AMARJIT SAINZ MD Departed Emergency Room [facility] 05/08/11 6:44pm 05/08/11 7:45pm JONN TRIANA MD Departed Emergency Room [facility] 02/09/11 4:18am 02/09/11 5:09am LETY COSTELLO DO Office Visit [facility] 06/17/10 3:00pm AVERYJONO MCKEON MD Office Visit [facility] 04/22/10 3:15pm AVERYJONO MCKEON MD Office Visit [facility] 03/18/10 4:00pm JONO AVERY MD Departed Emergency Room [facility] 02/02/10 9:01am 02/02/10 10:24am JONO AVERY MD Office Visit [facility] 01/05/10 8:45am JONO AVERY MD Departed Emergency Room [facility] 12/15/09 4:02pm 12/15/09 5:25pm LETY COSTELLO DO Office Visit [facility] 12/08/09 4:30pm JONO AVERY MD Discharged Recurring [facility] 09/24/09 11:59am 10/13/09 11:59pm NANCY MARTINEZ MD Office Visit [facility] 03/24/09 2:30pm BRYAN ALDANA MD Office Visit [facility] 03/18/09 10:30am MACY HERBERT MD Office Visit [facility] 01/29/09 11:00am BRYAN ALDANA MD Office Visit [facility] 01/26/09 11:00am BRYAN ALDANA MD Registered Clinic [facility] 01/02/09 4:44pm Registered Clinic [facility] 03/25/08 12:59pm Departed Emergency Room [facility] 12:00am 07/19/08 9:30pm Departed Emergency Room [facility] 12:00am 09/28/08 3:00pm Recent Diagnosis Bronchitis
--- OUTSIDE RECORDS SUMMARY | 2018-09-11 18:34 | XMS REPORT | Continuity of Care Document ---
Author Author [facility] Address Unknown Phone Unavailable Care Team Providers Care Moto Mix Operator Name Role Phone LINSEY MORALES MD PCP Insurance Providers Guarantor Francisco Patel Address [address] [place] [address] Email [email or web address] Payroll Payer [employer] Policy Number [id number] Subscriber's Name Nakul Patel Relationship 01 Group Number [id number] Effective Date 16 Advance Directives Directive Response Recorded Date/Time Advance Directives No 04/20/17 5:50pm Living Will No 04/20/17 5:50pm Chief Complaint and Reason for Visit Chief Complaint HEADACHE Reason for Visit Encounter for cervical Pap smear with pelvic exam Intractable headache New onset headache Failure of outpatient treatment Chronic sinusitis Problems Medical Problem Onset Date Status Chronic sinusitis Unknown Chronic Diabetes mellitus type 2 in obese Unknown Chronic Failure of outpatient treatment Unknown Acute Head ache Unknown Hyperlipidemia LDL goal <100 Unknown Chronic Hypothyroidism 05/16/2013 Chronic Intractable headache Unknown Acute Migraine Unknown Acute New onset headache Unknown Acute Obesity (BMI 30-39.9) Unknown Chronic [...] Acute Constipation Unknown Acute Cough Unknown Acute Diarrhea Unknown Acute Encounter for cervical Pap smear with pelvic exam 05/16/2013 Acute Epigastric abdominal pain Unknown Acute Esophageal spasm Unknown Acute Granuloma annulare Unknown Chronic Heavy menses 05/16/2013 Acute Left-sided chest wall pain Unknown Acute Menopausal symptoms 05/16/2013 Acute Nausea & vomiting Unknown Acute Otitis media 02/07/2014 Acute Preventative health care 05/16/2013 Acute Right shoulder pain Unknown Acute Sinusitis, acute ethmoidal Unknown Acute Skin lesion of left arm 05/16/2013 Acute Tobacco dependence Unknown Acute Weight loss counseling, encounter for Unknown Acute Wheezing 02/07/2014 Acute Medications Current Home Medications Medication Dose Units Route Directions Days Qty Instructions Start Date Acetaminophen/Butalbital/Caffeine (Butalbital/Acetaminophen/Caffeine) 50-325-40 Mg Tablet 1-2 Tablet Oral Every 4 Hours As Needed as needed for For Headache/Migraine 60 Tablet DO NOT EXCEED 6 TABLETS/24 HOURS 04/22/17 Albuterol (Albuterol Sulfate Neb) 2.5 Mg/3 Ml Vial.neb 1 Vial Nebulize Every 4-6 Hours As Needed as needed for Shortness Of Breath/Wheezing 90 Vial 06/02/15 Amitriptyline Hcl 75 Mg Tablet 150 Mg Oral Bedtime 30 Tablet 04/22/17 Amoxicillin/Potassium Clav (Augmentin 875-125 Tablet) 1 Each Tablet Twice A Day Cetirizine Hcl (Zyrtec) 10 Mg Capsule 10 Mg Oral Daily Cyclobenzaprine Hcl (Flexeril) 10 Mg Tablet 10 Mg Oral As Needed, Up To 3 Times Daily as needed for For Headache/Migraine 21 Tablet 04/22/17 Fluticasone Propionate 50 Mcg [place].susp 2 [place] Intranasal Daily 16 Gram 06/14/16 Ibuprofen 800 Mg Tablet 800 Mg Oral Every 8 Hours As Needed 90 Tablet 07/05/12 Metformin Hcl (Glucophage) 500 Mg Tablet 500 Mg Oral Twice Daily With Meals 60 Tablet 01/27/17 Past Home Medications Medication Directions Ordered Status Acetam/Butalbital/Caffeine/Codeine (Fioricet W/ Codeine) 18-026-75-30 Mg Capsule, 1 Capsule Oral Every 6 Hours As Needed as needed for For Headache/Migraine 11/19/15 Discontinued Acetaminophen/Hydrocodone Bitart (Hallie) 5 Mg/325 Mg Tablet, 1-2 Tablet Oral Every 4-6 Hours As Needed as needed for For Pain 01/28/16 Discontinued Acetaminophen/Hydrocodone Bitart (Hallie) 5 Mg/325 Mg Tablet, 1-2 Tab Oral Every 4 Hours As Needed as needed for For Pain Discontinued Acetaminophen/Hydrocodone Bitart (Hallie) 5 Mg/325 Mg Tablet, 1-2 Tab Oral [...] for For Pain 11/10/16 Discontinued Flu Vacc [id number](6MOS Up)/Pf (Flulaval Quad [id number] Syr) 60 Mcg/0.5 Ml Syringe, 60 Mcg [...] 60 Mcg Intramusc Once 11/19/15 Discontinued Ipratropium [place] (Atrovent Neb Soln) 0.02 % Soln, 1 [...] Mg Oral Daily 06/02/15 Discontinued Metformin Hcl 1,000 Mg Tablet, 1000 [...] Problem Response Recorded Date/Time Onset Date Status Lives With Spouse 04/20/2017 5:50pm Not Applicable Not Applicable Marital Status 04/20/2017 5:50pm Not Applicable Not Applicable Smoking Status Start Date Stop Date Current every day smoker Hospital Discharge Instructions No hospital discharge instruction information available. Plan of Care Discharge Date 04/22/17 9:30am Disposition 01 HOME/SELF CARE Prescriptions See Medication Section Additional Instructions/Education Follow up appointment with Linsey Morales on 04/27/17 at [address] Akhtar on 04/25/17 at 3:45 PM, please be there by 3:30 to complete paperwork. Functional Status No functional status information available. Allergies, Adverse Reactions, Alerts No known allergies. Immunizations Immunization Event Date Type Not Given Reason Dose Number Lot Number Wood Floor Layer Fluarix Quadrivalent 16-17 (3-64y) 11/19/15 Administered 1 [id number] DiagnoplexOFI Vital Signs Acute Vital Signs Vital Response Date/Time Height (Feet) 5 feet 04/20/2017 5:50pm Height (Inches) 5.00 inches 04/20/2017 5:50pm Height (Calculated Centimeters) 165.357891 cm 04/20/2017 5:50pm Weight (Pounds) 224.9 04/20/2017 5:50pm Weight (Calculated Kilograms) 102.936063 kg 04/20/2017 5:50pm Weight (Calculated Grams) 781031.925 gm 04/20/2017 5:50pm Body Mass Index (BMI) 37.4 04/20/2017 5:50pm Body Mass Index (BMI) Classification Obese 04/20/2017 5:50pm Temperature (Fahrenheit) 96.8 degrees F (96.8 - 100.4) 04/22/2017 5:50am Blood Pressure Systolic 100 mm Hg (100 - 140) 04/22/2017 5:50am Blood Pressure Diastolic 64 mm Hg (60 - 100) 04/22/2017 5:50am Pulse Rate (adult) 64 beats per minute (60 - 100) 04/22/2017 5:50am Respiratory Rate 16 breaths per minute (12 - 24) 04/22/2017 7:24am Respirations 16 breaths per minute (12 - 20) 04/20/2017 5:45pm O2 Sat by Pulse Oximetry 95 % (90 - 100) 04/22/2017 5:50am Ambulatory Vital Signs Vital Response Date/Time Weight 225 lbs 04/11/2017 1:01pm Temperature, Tympanic 98.5 degrees F 04/11/2017 1:01pm Blood Pressure, Sitting, Left Arm 138/62 mm Hg 04/11/2017 1:01pm Pulse Rate 115 bpm 04/11/2017 1:01pm Pulse Oximetry Pulse Oximetry 04/11/2017 1:01pm Results Laboratory Results Test Name Result Units Flags Reference Collection Date/Time Result Date/Time Comments Amylase Level 46 U/L 25-125 11/10/2016 4:57am 11/10/2016 5:28am Lipase 33 U/L 8-78 11/10/2016 4:57am 11/10/2016 5:28am Lactic Acid Level 1.4 MMOL/L 0.5-2.2 11/10/2016 4:57am 11/10/2016 5:28am White Blood Count 10.7 X10-3/UL 4.8-10.8 04/20/2017 3:40pm 04/20/2017 4:14pm Red Blood Count 4.81 X10-6/UL 4.20-5.40 04/20/2017 3:40pm 04/20/2017 4:14pm Hemoglobin 15.2 G/DL 12.0-16.0 04/20/2017 3:40pm 04/20/2017 4:14pm Hematocrit 45.4 % 37.0-47.0 04/20/2017 3:40pm 04/20/2017 4:14pm Mean Corpuscular Volume 94.5 FL 80.0-99.0 04/20/2017 3:40pm 04/20/2017 4:14pm Mean Corpuscular Hemoglobin 31.7 PG H 27.0-31.0 04/20/2017 3:40pm 04/20/2017 4:14pm Mean Corpuscular Hemoglobin Concent 33.5 G/DL 33.0-37.0 04/20/2017 3:40pm 04/20/2017 4:14pm Red Cell Distribution Width 12.5 % 11.5-14.5 04/20/2017 3:40pm 04/20/2017 4:14pm Platelet Count 345 X10-3/UL 130-400 04/20/2017 3:40pm 04/20/2017 4:14pm Neutrophils (%) (Auto) 63.2 % 40.0-75.0 04/20/2017 3:40pm 04/20/2017 4:14pm Lymphocytes (%) (Auto) 30.2 % 18.0-47.0 04/20/2017 3:40pm 04/20/2017 4:14pm Monocytes (%) (Auto) 3.8 % 0.0-10.0 04/20/2017 3:40pm 04/20/2017 4:14pm Eosinophils (%) (Auto) 2.1 % 0.0-6.0 04/20/2017 3:40pm 04/20/2017 4:14pm Basophils (%) (Auto) 0.7 % 0.0-2.0 04/20/2017 3:40pm 04/20/2017 4:14pm Neutrophils # (Auto) 6.7 X10-3/UL 1.9-8.1 04/20/2017 3:40pm 04/20/2017 4:14pm Lymphocytes # (Auto) 3.2 X10-3/UL 0.9-5.1 04/20/2017 3:40pm 04/20/2017 4:14pm Monocytes # (Auto) 0.4 X10-3/UL 0.1-0.9 04/20/2017 3:40pm 04/20/2017 4:14pm Eosinophils # (Auto) 0.2 X10-3/UL 0.0-0.6 04/20/2017 3:40pm 04/20/2017 4:14pm Basophils # (Auto) 0.1 X10-3/UL 0.0-0.2 04/20/2017 3:40pm 04/20/2017 4:14pm Glucose Level 210 MG/DL H 70-105 04/20/2017 3:40pm 04/20/2017 4:23pm Blood Urea Nitrogen 15.0 MG/DL 7.0-18.7 04/20/2017 3:40pm 04/20/2017 4:23pm Creatinine 0.79 MG/DL 0.57-1.11 04/20/2017 3:40pm 04/20/2017 4:23pm BUN/Creatinine Ratio 19 10-20 04/20/2017 3:40pm 04/20/2017 4:23pm EGFR Other 89.4 * >59 04/20/2017 3:40pm 04/20/2017 4:23pm *RESULT UNITS: ML/MIN/1.73 EGFR 103.1 * >59 04/20/2017 3:40pm 04/20/2017 4:23pm *RESULT UNITS: ML/MIN/1.73 Aspartate Amino Transf (AST/SGOT) 23 U/L 5-34 04/20/2017 3:40pm 04/20/2017 4:23pm Alanine Aminotransferase (ALT/SGPT) 22 U/L 0-55 04/20/2017 3:40pm 04/20/2017 4:23pm Alkaline Phosphatase 75 IU/L 40-150 04/20/2017 3:40pm 04/20/2017 4:23pm Total Bilirubin 0.30 MG/DL 0.0-1.0 04/20/2017 3:40pm 04/20/2017 4:23pm Total Protein 7.3 G/DL 6.4-8.3 04/20/2017 3:40pm 04/20/2017 4:23pm Albumin 3.5 g/dL 3.5-5.0 04/20/2017 3:40pm 04/20/2017 4:23pm Albumin/Globulin Ratio 0.9 L 1.0-2.0 04/20/2017 3:40pm 04/20/2017 4:23pm Globulin 3.8 G/DL 1.9-3.8 04/20/2017 3:40pm 04/20/2017 4:23pm Calcium Level 9.4 MG/DL 8.4-10.2 04/20/2017 3:40pm 04/20/2017 4:23pm Sodium Level 140 MMOL/L 136-145 04/20/2017 3:40pm 04/20/2017 4:23pm Potassium Level 3.9 MMOL/L 3.5-5.1 04/20/2017 3:40pm 04/20/2017 4:23pm Chloride Level 108 MMOL/L H 98-107 04/20/2017 3:40pm 04/20/2017 4:23pm Carbon Dioxide Level 21.0 MMOL/L L 22-29 04/20/2017 3:40pm 04/20/2017 4:23pm Anion Gap 15 MEQ/L H 0-14 04/20/2017 3:40pm 04/20/2017 4:23pm Thyroid Stimulating Hormone (TSH) 0.05 MIU/ML L 0.35-4.94 04/20/2017 3:40pm 04/21/2017 1:15pm Free Thyroxine 1.00 NG/DL 0.70-1.48 04/20/2017 3:40pm 04/21/2017 1:15pm Urine Color YELLOW YELLOW 04/20/2017 3:50pm 04/20/2017 4:16pm Urine Clarity Clear CLEAR 04/20/2017 3:50pm 04/20/2017 4:16pm Urine pH 5.0 4.5-7.5 04/20/2017 3:50pm 04/20/2017 4:16pm Urine Specific [place] >=1.030 1.002-1.030 04/20/2017 3:50pm 04/20/2017 4:16pm Urine Protein NEGATIVE NEGATIVE 04/20/2017 3:50pm 04/20/2017 4:16pm Urine Glucose (UA) NEGATIVE NEGATIVE 04/20/2017 3:50pm 04/20/2017 4:16pm Urine Ketones NEGATIVE NEGATIVE 04/20/2017 3:50pm 04/20/2017 4:16pm Urine Blood 3+ NEGATIVE 04/20/2017 3:50pm 04/20/2017 4:16pm Urine Nitrate NEGATIVE NEGATIVE 04/20/2017 3:50pm 04/20/2017 4:16pm Urine Bilirubin NEGATIVE NEGATIVE 04/20/2017 3:50pm 04/20/2017 4:16pm Urine Urobilinogen 0.2 EU/DL 0.2 04/20/2017 3:50pm 04/20/2017 4:16pm Urine Leukocyte Esterase NEGATIVE NEGATIVE 04/20/2017 3:50pm 04/20/2017 4:16pm Urine RBC 0-2 /HPF NONE SEEN 04/20/2017 3:50pm 04/20/2017 4:17pm Urine WBC 0-2 /HPF NONE SEEN 04/20/2017 3:50pm 04/20/2017 4:17pm Urine Bacteria TRACE /HPF NONE SEEN 04/20/2017 3:50pm 04/20/2017 4:17pm Urine Squamous Epithelial Cells 5-10 /HPF 04/20/2017 3:50pm 04/20/2017 4:17pm Urine Culture Reflexed NO 04/20/2017 3:50pm 04/20/2017 4:17pm Ambulatory Laboratory Results Test Name Result Units Flags Reference Result Date/Time Comments Hemoglobin A1c 6.4 11/25/2016 1:20pm Glucose Level 142 11/25/2016 1:20pm Hemoglobin A1c 6.0 % 06/20/2016 12:08pm Procedures Procedure Status Date Provider(s) SCREENINGMAMMOGRAPHYDIGITAL Completed 06/23/16 ULTRASOUND BREAST LIMITED Completed 06/30/16 DIAGNOSTICMAMMOGRAPHYDIGITAL Completed 06/30/16 ULTRASOUND BREAST LIMITED Completed 10/27/16 ROUTINE VENIPUNCTURE Completed 11/10/16 COMPREHEN METABOLIC PANEL Completed 11/10/16 URINALYSIS AUTO W/SCOPE Completed 11/10/16 ASSAY OF AMYLASE Completed 11/10/16 ASSAY OF LACTIC ACID Completed 11/10/16 ASSAY OF LIPASE Completed 11/10/16 COMPLETE CBC W/AUTO DIFF WBC Completed 11/10/16 URINE CULTURE/COLONY COUNT Completed 11/10/16 HYDRATE IV INFUSION ADD-ON Completed 11/10/16 THER/PROPH/DIAG INJ SC/IM Completed 11/10/16 THER/PROPH/DIAG INJ IV PUSH Completed 11/10/16 TX/PRO/DX INJ NEW DRUG ADDON Completed 11/10/16 EMERGENCY DEPT VISIT Completed 11/10/16 EMERGENCY DEPT VISIT Completed 11/10/16 DICYCLOMINE INJECTION Completed 11/10/16 ONDANSETRON HCL INJECTION Completed 11/10/16 DRUGS UNCLASSIFIED INJECTION Completed 11/10/16 NORMAL SALINE SOLUTION INFUS Completed 11/10/16 ROUTINE VENIPUNCTURE Completed 11/25/16 EVALUATION OF WHEEZING Completed 01/09/17 PULM FUNCT TST PLETHYSMOGRAP Completed 01/09/17 CO/MEMBANE DIFFUSE CAPACITY Completed 01/09/17 Mammogram, screening Completed 06/23/16 LINSEY MORALES MD US breast LT Completed 06/30/16 LINSEY MORALES MD Mammogram breast diagnostic Completed 06/30/16 LINSEY MORALES MD US breast bilateral Completed 10/27/16 RAHUL DIAZ MD Pulmonary function test Completed 01/09/[address] Head WO contrast Completed 04/20/17 ENRRIQUE PRINCE MD Magnetic resonance imaging of brain and brainstem without contrast Completed 04/21/17 JOHN RUSHING DO Encounters Encounter Location Arrival/Admit Date Discharge/Depart Date Attending Provider Discharged Inpatient [facility] 04/21/17 11:05am 04/22/17 9:30am JOHN RUSHING DO Registered Practice [facility] 04/11/17 1:00pm LINSEY MORALES MD Office Visit [facility] 04/11/17 1:00pm LINSEY MORALES MD Registered Clinic [facility] 01/09/17 12:56pm LINSEY MORALES MD Office Visit [facility] 01/09/17 8:30am LINSEY MORALES MD Registered Clinic [facility] 11/25/16 1:10pm MACY HERBERT MD Office Visit [facility] 11/25/16 12:45pm MACY HERBERT MD Departed Emergency Room [facility] 11/10/16 4:21am 11/10/16 7:01am JD TRACY PA-C Registered Clinic [facility] 10/27/16 9:10am RAHUL DIAZ MD Registered Clinic [facility] 06/30/16 9:14am LINSEY MORALES MD Registered Clinic [facility] 06/23/16 11:47am LINSEY MORALES MD Office Visit [facility] 06/20/16 11:00am LINSEY MORALES MD Office Visit [facility] 06/14/16 3:00pm RINA MARIE SMELTER LINER Recent Diagnosis Encounter for cervical Pap smear with pelvic exam Intractable headache New onset headache Failure of outpatient treatment Chronic sinusitis
--- OUTSIDE RECORDS SUMMARY | 2018-09-11 18:35 | XMS REPORT | Continuity of Care Document ---
Author Author [facility] Organization [facility] Address Unknown Phone Unavailable Care Team Providers Care Cathode Builder Name Role Phone LINSEY EDMOND MD PCP Insurance Providers Guarantor Francisco Patel Address [address] [place] [address] Email [email or web address] Payer [employer] Policy Number [id number] Subscriber's Name Francisco Patel Relationship 18 Self / Same As Patient Group Number [id number] Advance Directives Directive Response Recorded Date/Time Advance Directives No 08/25/15 9:45am Chief Complaint and Reason for Visit Chief Complaint Chest Pain Reason for Visit Anxiety Esophageal spasm Acute epigastric pain Problems Medical Problem Onset Date Status Diabetes [...] Instructions Start Date Acetam/Butalbital/Caffeine/Codeine (Fioricet W/ Codeine) [id number] Mg Capsule 1 Capsule Oral Every 6 Hours As Needed as needed for For Headache/Migraine 30 Capsule DO NOT EXCEED 6 CAPSULES/24 HOURS 11/19/15 Acetaminophen/Hydrocodone Bitart (Kingwood) 5 Mg/325 Mg Tablet 1-2 Tablet Oral [...] 10 Mg Oral Daily 90 Tablet 09/04/15 Pantoprazole Sodium (Protonix) 40 Mg Tablet.dr 40 Mg Oral Twice A Day 60 Tablet 03/18/16 Prednisone (Prednisone Taper 3X3,2X3,1X3) 20 Mg Tablet 20 Mg Oral As Directed 18 Tablet 3 TABS ONCE DAILY x 3 DAYS, 2 TABS ONCE DAILY x 3 DAYS, 1 TAB ONCE DAILY x 3 DAYS 03/11/16 Promethazine Hcl/Codeine (Promethazine W/ Codeine) 6.25-10 Mg/5 Ml Syrup 5-10 Ml Oral Every 6 Hours 120 Milliliter TAKE WITH FOOD OR MILK 03/11/16 Rizatriptan Benzoate (Maxalt Munitions Handler Supervisor) 10 Mg Tab.rapdis 10 Mg Oral As Directed 10 Tablet 11/19/15 Past Home Medications Medication Directions Ordered Status Acetaminophen/Hydrocodone Bitart ([place]) 5 Mg/325 Mg Tablet, 1-2 Tab Oral Every 4 Hours As Needed as needed for For Pain Discontinued Acetaminophen/Hydrocodone Bitart ([place]) 5 Mg/325 Mg Tablet, 1-2 Tab Oral [...] 60 Mcg Intramusc Once 11/19/15 Discontinued Ipratropium Patterson (Atrovent Neb Soln) 0.02 % Soln, 1 [...] Recorded Date/Time Onset Date Status Marital Status 03/18/2016 2:05am Not Applicable Not Applicable Smoking Status Start Date Stop Date Current every day smoker Hospital Discharge Instructions No hospital discharge instruction information available. Plan of Care Discharge Date 03/18/16 3:43am Disposition 01 HOME/SELF CARE Condition at Discharge Good Instructions/Education Provided Esophageal Spasm (ED) Forms Provided Return to Work Prescriptions See Medication Section Referrals LINSEY EDMOND MD Order Date: 24 hours Address: [address] [place] [address] Note: Additional Instructions/Education Stop the Prednisone at this time, as there is only a single dose in either case. Start the Protonix on a daily basis. Continue to monitor for any change or worsening of condition. Notify your Primary Care provider of this visit and follow-up as advised. Functional Status No functional status information available. Allergies, Adverse Reactions, Alerts No known allergies. Immunizations Immunization Event Date Type Not Given Reason Dose Number Lot Number Dental Treatment Coordinator Fluarix Quadrivalent 16-17 (3-64y) 11/19/15 Administered 1 [id number] SeeOnOFI Vital Signs Acute Vital Signs Vital Response Date/Time Height (Feet) 5 feet 03/18/2016 2:00am Height (Inches) 5.00 inches 03/18/2016 2:00am Height (Calculated Centimeters) 165.731950 cm 03/18/2016 2:00am Weight (Pounds) 225.0 03/18/2016 2:00am Weight (Ounces) 1 oz 01/28/2016 11:17am Weight (Calculated Kilograms) 102.275882 kg 03/18/2016 2:00am Weight (Calculated Grams) 060653.284 gm 03/18/2016 2:00am Body Mass Index (BMI) 37 03/18/2016 2:00am Body Mass Index (BMI) Classification Obese 03/18/2016 2:00am Temperature (Fahrenheit) 97.6 degrees F (96.8 - 100.4) 03/18/2016 3:43am Blood Pressure Systolic 99 mm Hg (100 - 140) 03/18/2016 3:43am Blood Pressure Diastolic 64 mm Hg (60 - 100) 03/18/2016 3:43am Pulse Rate (adult) 59 beats per minute (60 - 100) 03/18/2016 3:43am Respiratory Rate 14 breaths per minute (12 - 24) 01/28/2016 4:35pm Respirations 14 breaths per minute (12 - 20) 03/18/2016 3:43am O2 Sat by Pulse Oximetry 95 % (90 - 100) 03/18/2016 3:43am Ambulatory Vital Signs Vital Response Date/Time Height [...] Postmenopausal 25.8 - 134.8 Performed at: - [facility] [address] [address], [place], [place] [id number] Arts Therapist: Yamilet Sarmiento MD, Phone: [phone] Luteinizing Hormone 6.5 mIU/mL . 05/16/2013 10:52am 05/17/2013 7:16am Follicular phase 2.4 - 12.6 Ovulation phase 14.0 - 95.6 Luteal phase 1.0 - 11.4 Postmenopausal 7.7 - 58.5 Surgical Pathology 05/16/2013 10:45am 05/17/2013 2:04am N/A 4-7-14 05/16/2013 10:45am 05/20/2013 5:50pm Band Neutrophils % 1 % 0-8 12/15/2013 11:05pm 12/15/2013 11:57pm Eosinophils % (Manual) 3 % 0-6 12/15/2013 11:05pm 12/15/2013 11:57pm Band Neutrophils # 0.1 X10-3/UL 0.0-0.9 12/15/2013 11:05pm 12/15/2013 11:57pm Eosinophils # (Manual) 0.3 X10-3/UL 0.0-0.6 12/15/2013 11:05pm 12/15/2013 11:57pm D-Dimer < 200 NG/ML 0-400 12/15/2013 11:20pm 12/16/2013 12:04am Free Thyroxine 0.99 NG/DL 0.76-1.46 12/15/2013 11:05pm 12/16/2013 12:05am BF-Bnm-M-Type Natriuretic Peptide 47 PG/ML 0.00-450 12/15/2013 11:05pm [...] 5.7 MG/G <30 08/25/2015 1:50pm 08/25/2015 4:13pm Neutrophils (%) (Auto) 53.9 % 40.0-75.0 01/30/2016 [...] 0.1 X10-3/UL 0.0-0.2 01/30/2016 11:30pm 01/30/2016 11:44pm Activated Partial Thromboplast Time 27.2 SEC 23.0-32.2 01/30/2016 11:30pm 01/30/2016 11:53pm White Blood Count 16.6 X10-3/UL H 4.8-10.8 03/18/2016 2:15am 03/18/2016 2:34am Red Blood Count 4.60 X10-6/UL 4.20-5.40 03/18/2016 2:1503/18/2016 2:34am Hemoglobin 14.8 G/DL 12.0-16.0 03/18/2016 2:1503/18/2016 2:34am Hematocrit 42.8 % 37.0-47.0 03/18/2016 2:1503/18/2016 2:34am Mean Corpuscular Volume 93.2 FL 80.0-99.0 03/18/2016 2:1503/18/2016 2:34am Mean Corpuscular Hemoglobin 32.2 PG H 27.0-31.0 03/18/2016 2:1503/18/2016 2:34am Mean Corpuscular Hemoglobin Concent 34.6 G/DL 33.0-37.0 03/18/2016 2:1503/18/2016 2:34am Red Cell Distribution Width 11.7 % 11.5-14.5 03/18/2016 2:1503/18/2016 2:34am Platelet Count 383 X10-3/UL 130-400 03/18/2016 2:1503/18/2016 2:34am Differential Total Cells Counted 100 100 03/18/2016 2:03/18/2016 2:53am Neutrophils % (Manual) 60 % 40-75 03/18/2016 2:03/18/2016 2:53am Lymphocytes % (Manual) 37 % 18-47 03/18/2016 2:03/18/2016 2:53am Monocytes % (Manual) 3 % 0-10 03/18/2016 2:03/18/2016 2:53am Neutrophils # (Manual) 10.0 X10-3/UL H 1.9-8.1 03/18/2016 2:03/18/2016 2:53am Lymphocytes # (Manual) 6.1 X10-3/UL H 0.9-5.1 03/18/2016 2:03/18/2016 2:53am Monocytes # (Manual) 0.5 X10-3/UL 0.1-0.9 03/18/2016 2:03/18/2016 2:53am Red Cell Morphology Comment NORMAL 03/18/2016 2:03/18/2016 2:53am Prothrombin Time 10.7 SEC 9.9-12.1 03/18/2016 2:03/18/2016 2:27am Prothromb Time International Ratio 1.0 03/18/2016 2:1503/18/2016 2:27am INR THERAPEUTIC RANGE GROUP A 2.0 - 3.0 GROUP B 2.5 - 3.5 INDICATIONS; INDICATIONS; Prophylaxis and treatment Mechanical prosthetic of venous thrombosis. valves. Treatment of pulmonary embolism. Prevention of systemic embolism. Tissue heart valves. Acute myocardial infarction. Valvular heart disease. Atrial fibrillation. Glucose Level 149 MG/DL H 70-105 03/18/2016 2:03/18/2016 2:47am Blood Urea Nitrogen 30.0 MG/DL H 7.0-18.7 03/18/2016 2:1503/18/2016 2:47am Creatinine 1.03 MG/DL 0.57-1.11 03/18/2016 2:1503/18/2016 2:47am BUN/Creatinine Ratio 29 H 10-20 03/18/2016 2:1503/18/2016 2:47am EGFR Other 65.3 * >59 03/18/2016 2:03/18/2016 2:47am *RESULT UNITS: ML/MIN/1.73 EGFR 75.3 * >59 03/18/2016 2:03/18/2016 2:47am *RESULT UNITS: ML/MIN/1.73 Aspartate Amino Transf (AST/SGOT) 12 U/L 5-34 03/18/2016 2:1503/18/2016 2:47am Alanine Aminotransferase (ALT/SGPT) 11 U/L 0-55 03/18/2016 2:03/18/2016 2:47am Alkaline Phosphatase 57 IU/L 40-150 03/18/2016 2:1503/18/2016 2:47am Total Bilirubin 0.40 MG/DL 0.0-1.0 03/18/2016 2:1503/18/2016 2:47am Total Protein 7.2 G/DL 6.4-8.3 03/18/2016 2:1503/18/2016 2:47am Albumin 3.7 g/dL 3.5-5.0 03/18/2016 2:03/18/2016 2:47am Albumin/Globulin Ratio 1.1 1.0-2.0 03/18/2016 2:03/18/2016 2:47am Globulin 3.5 G/DL 1.9-3.8 03/18/2016 2:1503/18/2016 2:47am Calcium Level 9.6 MG/DL 8.4-10.2 03/18/2016 2:1503/18/2016 2:47am Sodium Level 135 MMOL/L L 136-145 03/18/2016 2:1503/18/2016 2:47am Potassium Level 4.5 MMOL/L 3.5-5.1 03/18/2016 2:1503/18/2016 2:47am Chloride Level 103 MMOL/L 98-107 03/18/2016 2:15am 03/18/2016 2:47am Carbon Dioxide Level 21.0 MMOL/L L 22-29 03/18/2016 2:1503/18/2016 2:47am Anion Gap 16 MEQ/L H 0-14 03/18/2016 2:1503/18/2016 2:47am Creatine Kinase 26 U/L L 29-168 03/18/2016 2:1503/18/2016 2:47am Creatine Kinase MB 0.5 NG/ML 0.0-3.4 03/18/2016 2:1503/18/2016 2:47am Troponin I < 0.02 NG/ML 0.00-0.06 03/18/2016 2:1503/18/2016 2:47am TROPONIN I <=0.06 ng/mL Negative 0.07-0.25 ng/mL Intermediate >0.25 ng/mL Positive >0.6 ng/mL Critical Troponin I is cardiac specific. If present, indicates injury has occurred, indicating need to R/O myocardial infarct or high risk unstable angina (UA). Myoglobin ng/ml 14.3 NG/ML 10.0-106.0 03/18/2016 2:15am 03/18/2016 2:47am Lipase 33 U/L 8-78 03/18/2016 2:15am 03/18/2016 2:37am Procedures Procedure Status Date Provider(s) ROUTINE VENIPUNCTURE [...] EVALUATION Completed 02/12/16 THERAPEUTIC EXERCISES Completed 02/12/16 ULTRASOUND THERAPY Completed 02/15/16 ULTRASOUND THERAPY Completed 02/15/16 ULTRASOUND THERAPY Completed 02/15/16 THERAPEUTIC EXERCISES Completed 02/15/16 THERAPEUTIC EXERCISES Completed 02/15/16 THERAPEUTIC EXERCISES Completed 02/15/16 THERAPEUTIC EXERCISES Completed 02/15/16 THERAPEUTIC EXERCISES Completed 02/15/16 THERAPEUTIC EXERCISES Completed 02/15/16 THERAPEUTIC EXERCISES Completed 02/15/16 THERAPEUTIC EXERCISES Completed 02/15/16 Encounters Encounter Location Arrival/Admit Date Discharge/Depart Date Attending Provider Departed Emergency Room [facility] 03/18/16 1:55am 03/18/16 3:43am FLOR MOLINA Office Visit [facility] 03/11/16 3:00pm ALANIS VIRGEN PAC Registered Practice [facility] 03/11/16 3:00pm ALANIS VIRGEN PAC Office Visit [facility] 03/09/16 10:30am SILVESTRE PEDROZA PAC Discharged Recurring [facility] 02/15/16 12:05pm 03/15/16 11:59pm ALICIA VICTORIA DO Discharged Recurring [facility] 02/12/16 7:51am 02/13/16 11:59pm ALICIA VICTORIA DO Office Visit [facility] 02/10/16 3:45pm SILVESTRE PEDROZA PAC Departed Emergency Room [facility] 01/30/16 9:46pm 01/31/16 1:34am JD TRACY PA-C Registered Surgical Day Care [facility] 01/28/16 10:51am ALICIA VICTORIA DO Office Visit [facility] 01/11/16 1:30pm LINSEY EDMOND MD Office Visit [facility] 12/28/15 1:00pm ALICIA VICTORIA DO Registered Clinic [facility] 12/21/15 1:14pm ALICIA VICTORIA DO Departed Emergency Room [facility] 12/08/15 5:00pm 12/08/15 6:24pm CHON KENDRICK DO Office Visit [facility] 12/07/15 10:30am ALICIA VICTORIA DO Departed Emergency Room [facility] 12/04/15 10:41am 12/04/15 1:25pm KUSH TRACY PA-C Registered Clinic [facility] 11/25/15 6:45pm LINSEY EDMOND MD Registered Clinic [facility] 11/19/15 10:09am LINSEY DEMOND MD Office Visit [facility] 11/19/15 9:30am LINSEY EDMOND MD Office Visit [facility] 11/04/15 12:00pm MACY HERBERT MD Registered Clinic [facility] 08/25/15 9:47am LINSEY EDMOND MD Office Visit [facility] 08/20/15 11:15am LINSEY EDMOND MD Office Visit [facility] 06/02/15 9:00am LINSEY EDMOND MD Office Visit [facility] 04/16/15 9:45am JOHN RUSHING DO Office Visit [facility] 08/04/14 11:00am SAMMY TORO PA-C Departed Surgical Day Care [facility] 03/21/14 6:09am 03/21/14 1:00pm FASTJONN MD Registered Clinic [facility] 03/17/14 1:44pm FASTJONN MD Registered Clinic [facility] 03/11/14 12:54pm FASTJONN MD Departed Emergency Room [facility] 02/13/14 11:42pm 02/14/14 2:45am JACKSON NAVARRETE Office Visit [facility] 02/07/14 2:45pm SHILA ELIZONDO DO Registered Emergency Room [facility] 12/15/13 10:45pm ERIC GRANDA PA-C Office Visit [facility] 10/04/13 8:30am LINSEY EDMOND MD Office Visit [facility] 09/03/13 8:30am LINSEY EDMOND MD Office Visit [facility] 07/30/13 9:30am LINSEY EDMOND MD Departed Emergency Room [facility] 07/17/13 5:16pm 07/17/13 7:31pm KUSH TRACY PA-C Office Visit [facility] 06/05/13 8:30am LINSEY EDMOND MD Registered Referred [facility] 05/16/13 3:19pm LINSEY EDMOND MD Registered Clinic [facility] 05/16/13 10:45am LINSEY EDMOND MD Office Visit [facility] 05/16/13 10:00am LINSEY EDMOND MD Departed Emergency Room [facility] 05/13/13 4:43am 05/13/13 6:06am KUSH TRACY PA-C Office Visit [facility] 10/09/12 11:15am BRYAN ALDANA MD Office Visit [facility] 07/05/12 2:30pm LINSEY EDMOND MD Departed Emergency Room [facility] 04/17/12 1:31am 04/17/12 3:30am ERIC GRANDA PA-C Office Visit [facility] 03/28/12 9:45am BASIL CRUZ MD Registered Clinic [facility] 12/27/11 1:57pm AMARJIT SAINZ MD Departed Emergency Room [facility] 05/08/11 6:44pm 05/08/11 7:45pm JONN TRIANA MD Departed Emergency Room [facility] 02/09/11 4:18am 02/09/11 5:09am LETY COSTELLO DO Office Visit [facility] 06/17/10 3:00pm JONO AVERY MD Office Visit [facility] 04/22/10 3:15pm JONO AVERY MD Office Visit [facility] 03/18/10 4:00pm JONO AVERY MD Departed Emergency Room [facility] 02/02/10 9:01am 02/02/10 10:24am JONO AVERY MD Office Visit [facility] 01/05/10 8:45am JONO AVERY MD Departed Emergency Room [facility] 12/15/09 4:02pm 12/15/09 5:25pm LETY COSTELLO DO Office Visit [facility] 12/08/09 4:30pm JONO AVERY MD Discharged Recurring [facility] 09/24/09 11:59am 10/13/09 11:59pm NANCY MARTINEZ MD Office Visit [facility] 03/24/09 2:30pm BRYAN ALDANA MD Office Visit [facility] 03/18/09 10:30am MACY HERBERT MD Office Visit [facility] 01/29/09 11:00am BRYAN ALDANA MD Office Visit [facility] 01/26/09 11:00am BRYAN ALDANA MD Registered Clinic [facility] 01/02/09 4:44pm Registered Clinic [facility] 03/25/08 12:59pm Departed Emergency Room [facility] 12:00am 07/19/08 9:30pm Departed Emergency Room [facility] 12:00am 09/28/08 3:00pm Recent Diagnosis
--- OUTSIDE RECORDS SUMMARY | 2018-09-11 18:36 | XMS REPORT | Continuity of Care Document ---
Author Author [facility] Organization [facility] Address Unknown Phone Unavailable Care Team Providers Care Interlocker Name Role Phone LINSEY EDMOND MD PCP Insurance Providers Guarantor Francisco Patel Address [address] [place] [address] Email [email or web address] Payer [facility] Policy Number [id number] Subscriber's Name Francisco Patel Relationship 18 Self / Same As Patient Effective Date 15 Payer [facility] Policy Number [id number] Subscriber's Name Nakul Patel Relationship 01 Group Number [id number] Effective Date 15 Advance Directives Directive Response [...] Instructions Start Date Acetam/Butalbital/Caffeine/Codeine (Fioricet W/ Codeine) [id number] Mg Capsule 1 Capsule Oral Every 6 Hours As Needed as needed for For Headache/Migraine 30 Capsule DO NOT EXCEED 6 CAPSULES/24 HOURS 11/19/15 Acetaminophen/Hydrocodone Bitart ([place]) 5 Mg/325 Mg Tablet 1-2 Tablet Oral [...] Meals 180 Tablet 10/12/15 Rizatriptan Benzoate (Maxalt Spar Machine Operator) 10 Mg Tab.rapdis 10 Mg Oral As Directed 10 Tablet 11/19/15 Past Home Medications Medication Directions Ordered Status Acetaminophen/Hydrocodone Bitart ([place]) 5 Mg/325 Mg Tablet, 1-2 Tab Oral Every 4 Hours As Needed as needed for For Pain Discontinued Acetaminophen/Hydrocodone Bitart (Rector) 5 Mg/325 Mg Tablet, 1-2 Tab Oral [...] Discontinued Influenza Virus Vaccine Quadrival (Fluarix Quad 2016-) 60 Mcg/0.5 Ml Syringe, 60 Mcg Intramusc Once 11/19/15 Discontinued Ipratropium Grant (Atrovent Neb Soln) 0.02 % Soln, 1 [...] Not Given Reason Dose Number Lot Number Supply Chain Specialist Fluarix Quadrivalent 16-17 (3-64y) 11/19/15 Administered 1 [id number] SANOFI Vital Signs Acute Vital Signs Vital Response Date/Time Height (Feet) 5 feet 01/30/2016 10:06pm Height (Inches) 5.00 inches 01/30/2016 10:06pm Height (Calculated Centimeters) 165.361218 cm 01/30/2016 10:06pm Weight (Pounds) 220.0 01/30/2016 10:06pm Weight (Ounces) 1 oz 01/28/2016 11:17am Weight (Calculated Kilograms) 99.155346 kg 01/30/2016 10:06pm Weight (Calculated Grams) 97399.322 gm 01/30/2016 10:06pm Body Mass Index (BMI) [...] Response Date/Time Height 5 ft 5 in 02/10/2016 3:29pm Weight 225 lbs 02/10/2016 3:29pm Temperature, Tympanic 97.4 degrees F 02/10/2016 3:29pm Blood Pressure, Sitting, Left Arm 130/90 mm Hg 02/10/2016 3:29pm Pulse Rate 99 bpm 02/10/2016 3:29pm Body Surface Area 2.21 m2 02/10/2016 3:29pm Body Mass Index 37.4 kg/m2 02/10/2016 3:29pm Pulse Oximetry Pulse Oximetry 02/10/2016 3:29pm Results Laboratory Results Test Name Result Units Flags Reference Collection Date/Time Result Date/Time Comments B-Type Natriuretic Peptide 20 PG/ML 0-100 03/25/2008 1:08pm 03/25/2008 2:03pm Follicle Stimulating Hormone 12.9 mIU/mL . 05/16/2013 10:52am 05/17/2013 7:16am Follicular phase 3.5 - 12.5 Ovulation phase 4.7 - 21.5 Luteal phase 1.7 - 7.7 Postmenopausal 25.8 - 134.8 Performed at: [facility] [id number] [address], [place], [place] [id number] Child Custody Evaluator: Yamilet Sarmiento MD, Phone: [phone] Luteinizing Hormone 6.5 mIU/mL . 05/16/2013 10:52am 05/17/2013 7:16am Follicular phase 2.4 - 12.6 Ovulation phase 14.0 - 95.6 Luteal phase 1.0 - 11.4 Postmenopausal 7.7 - 58.5 Surgical Pathology 05/16/2013 10:45am 05/17/2013 2:04am N/A 05-20-14 05/16/2013 10:45am 05/20/2013 5:50pm Differential Total Cells [...] 0.99 NG/DL 0.76-1.46 12/15/2013 11:05pm 12/16/2013 12:05am IY-Enb-Y-Type Natriuretic Peptide 47 PG/ML 0.00-450 12/15/2013 11:05pm [...] 01/30/16 NORMAL SALINE SOLUTION INFUS Completed 01/30/16 Encounters Encounter Location Arrival/Admit Date Discharge/Depart Date Attending Provider Discharged Recurring [facility] 02/12/16 7:51am 02/13/16 11:59pm ALICIA VICTORIA DO Office Visit [facility] 02/10/16 3:45pm SILVESTRE PEDROZA PAC Registered Practice [facility] 02/10/16 3:45pm SILVESTRE PEDROZA PAC Departed Emergency Room [facility] 01/30/16 9:46pm 01/31/16 1:34am JD TRACY PA-C Registered Surgical Day Care [facility] 01/28/16 10:51am ALICIA VICTORIA DO Office Visit [facility] 01/11/16 1:30pm LINSEY EDMOND MD Office Visit [facility] 12/28/15 1:00pm ALICIA VICTORIA DO Registered Clinic [facility] 12/21/15 1:14pm ALICIA VICTORIA DO Departed Emergency Room [facility] 12/08/15 5:00pm 12/08/15 6:24pm CHON KENDRICK DO Office Visit [facility] 12/07/15 10:30am ALICIA VICTORIA DO Departed Emergency Room [facility] 12/04/15 10:41am 12/04/15 1:25pm KUSH TRACY PA-C Registered Clinic [facility] 11/25/15 6:45pm LINSEY EDMOND MD Registered Clinic [facility] 11/19/15 10:09am LINSEY EDMOND MD Office Visit [facility] 11/19/15 9:30am LINSEY EDMOND MD Office Visit [facility] 11/04/15 12:00pm MACY HERBERT MD Registered Clinic [facility] 08/25/15 9:47am LINSEY EDMOND MD Office Visit [facility] 08/20/15 11:15am LINSEY EDMOND MD Office Visit [facility] 06/02/15 9:00am LINSEY EDMOND MD Office Visit [facility] 04/16/15 9:45am JOHN RUSHING DO Office Visit [facility] 08/04/14 11:00am SAMMY TORO PA-C Departed Surgical Day Care [facility] 03/21/14 6:09am 03/21/14 1:00pm FAST, JONN Easton MD Registered Clinic [facility] 03/17/14 1:44pm FAST, JONN Easton MD Registered Clinic [facility] 03/11/14 12:54pm FAST, JONN Easton MD Departed Emergency Room [facility] 02/13/14 11:42pm 02/14/14 2:45am JACKSON NAVARRETE Office Visit [facility] 02/07/14 2:45pm SHILA ELIZONDO DO Registered Emergency Room [facility] 12/15/13 10:45pm ERIC GRANDA PA-C Office Visit [facility] 10/04/13 8:30am LINSEY EDMOND MD Office Visit [facility] 09/03/13 8:30am LINSEY EDMOND MD Office Visit [facility] 07/30/13 9:30am LINSEY EDMOND MD Departed Emergency Room [facility] 07/17/13 5:16pm 07/17/13 7:31pm KUSH TRACY PA-C Office Visit [facility] 06/05/13 8:30am LINSEY EDMOND MD Registered Referred [facility] 05/16/13 3:19pm LINSEY EDMOND MD Registered Clinic [facility] 05/16/13 10:45am LINSEY EDMOND MD Office Visit [facility] 05/16/13 10:00am LINSEY EDMOND MD Departed Emergency Room [facility] 05/13/13 4:43am 05/13/13 6:06am KUSH TRACY PA-C Office Visit [facility] 10/09/12 11:15am BRYAN ALDANA MD Office Visit [facility] 07/05/12 2:30pm LINSEY EDMOND MD Departed Emergency Room [facility] 04/17/12 1:31am 04/17/12 3:30am ERIC GRANDA PA-C Office Visit [facility] 03/28/12 9:45am BASIL CRUZ MD Registered Clinic [facility] 12/27/11 1:57pm AMARJIT WOOTEN MD Departed Emergency Room [facility] 05/08/11 6:44pm 05/08/11 7:45pm JONN TRIANA MD Departed Emergency Room [facility] 02/09/11 4:18am 02/09/11 5:09am LETY COSTELLO DO Office Visit [facility] 06/17/10 3:00pm JONO AVERY MD Office Visit [facility] 04/22/10 3:15pm JONO AVERY MD Office Visit [facility] 03/18/10 4:00pm JONO AVERY MD Departed Emergency Room [facility] 02/02/10 9:01am 02/02/10 10:24am JONO AVERY MD Office Visit [facility] 01/05/10 8:45am JONO AVERY MD Departed Emergency Room [facility] 12/15/09 4:02pm 12/15/09 5:25pm LETY COSTELLO DO Office Visit [facility] 12/08/09 4:30pm JONO AVERY MD Discharged Recurring [facility] 09/24/09 11:59am 10/13/09 11:59pm NANCY MARTINEZ MD Office Visit [facility] 03/24/09 2:30pm BRYAN ALDANA MD Office Visit [facility] 03/18/09 10:30am MACY HERBERT MD Office Visit [facility] 01/29/09 11:00am BRYAN ALDANA MD Office Visit [facility] 01/26/09 11:00am BRYAN ALDANA MD Registered Clinic [facility] 01/02/09 4:44pm Registered Clinic [facility] 03/25/08 12:59pm Departed Emergency Room [facility] 12:00am 07/19/08 9:30pm Departed Emergency Room [facility] 12:00am 09/28/08 3:00pm
--- OUTSIDE RECORDS SUMMARY | 2018-09-11 18:36 | XMS REPORT | Continuity of Care Document ---
Author Author [facility] Organization [facility] Address Unknown Phone Unavailable Care Team Providers Care Mining Engineer Name Role Phone LINSEY EDMOND FACP, MD PCP Insurance Providers Guarantor Francisco Patel Address [address] [place] [address] Email [email or web address] Payer [employer] Policy Number [id number] Subscriber's Name Nakul Patel Relationship 01 Group Number [id number] Effective Date 16 [facility] Number [id number] Subscriber's Name Francisco Patel Relationship 18 Self / Same As Patient Group Number [id number] Advance Directives Directive Response Recorded Date/Time Advance Directives No 04/20/17 5:50pm Problems Medical Problem Onset Date Status Diabetes [...] EXCEED 6 TABLETS/24 HOURS 04/22/17 Acetaminophen/Hydrocodone Bitart ([place]) 5 Mg/325 Mg Tablet 1-2 Tablet Oral [...] 21 Tablet 04/22/17 Fluticasone Propionate 50 Mcg [place].susp 2 [place] Intranasal Daily 16 Gram 06/14/16 Ibuprofen 800 Mg Tablet 800 Mg Oral Every 8 Hours As Needed 90 Tablet 07/05/12 Metformin Hcl (Glucophage) 500 Mg Tablet 500 Mg Oral Twice Daily With Meals 180 Tablet 05/16/17 Niacinamide 500 Mg Tablet 500 Mg Oral Three Times A Day 42 Tablet 07/06/17 Past Home Medications Medication Directions Ordered Status Acetam/Butalbital/Caffeine/Codeine (Fioricet W/ Codeine) 04-650-63-30 Mg Capsule, 1 Capsule Oral Every 6 Hours As Needed as needed for For Headache/Migraine 11/19/15 Discontinued Acetaminophen/Hydrocodone Bitart ([place]ray) 5 Mg/325 Mg Tablet, 1-2 Tablet Oral Every 4-6 Hours As Needed as needed for For Pain 01/28/16 Discontinued Acetaminophen/Hydrocodone Bitart ([place]ray) 5 Mg/325 Mg Tablet, 1-2 Tab Oral Every 4 Hours As Needed as needed for For Pain Discontinued Acetaminophen/Hydrocodone Bitart (Murray) 5 Mg/325 Mg Tablet, 1-2 Tab Oral [...] Mg Tablet, 1 Pack Oral As Directed 02/07/17 Discontinued Azithromycin (Zpak) 250 Mg Tablet, 1 [...] for For Pain 11/10/16 Discontinued Flu Vacc [id number](6MOS Up)/Pf (Flulaval Quad [id number] Syr) 60 Mcg/0.5 Ml Syringe, 60 Mcg [...] 60 Mcg Intramusc Once 11/19/15 Discontinued Ipratropium [place] (Atrovent Neb Soln) 0.02 % Soln, 1 [...] information available. Plan of Care Discharge Date 07/13/17 2:41pm Prescriptions See Medication Section Functional Status No functional status information available. Allergies, Adverse Reactions, Alerts No known allergies. Immunizations Immunization Event Date Type Not Given Reason Dose Number Lot Number Receptionist Secretary Fluarix Quadrivalent 16-17 (3-64y) 11/19/15 Administered 1 [id number] [employer] Flulaval Quadrivalent 17-18 (6M-[id number]) 01/09/17 Administered 1 [id number] [employer] CONSU Vital Signs Acute Vital Signs Vital Response Date/Time Height (Feet) 5 feet 07/13/2017 7:14am Height (Inches) 5.00 inches 07/13/2017 7:14am Height (Calculated Centimeters) 165.592815 cm 07/13/2017 7:14am Weight (Pounds) 223 07/13/2017 7:14am Weight (Ounces) 8 oz 07/13/2017 7:14am Weight (Calculated Kilograms) 101.540720 kg 07/13/2017 7:14am Weight (Calculated Grams) 160768.896 gm 07/13/2017 7:14am Body Mass Index (BMI) 37.0 07/13/2017 7:14am Body Mass Index (BMI) Classification Obese 07/13/2017 7:14am Temperature (Fahrenheit) 96.9 degrees F (96.8 - 100.4) 07/13/2017 8:25am Blood Pressure Systolic 126 mm Hg (100 - 140) 07/13/2017 8:50am Blood Pressure Diastolic 75 mm Hg (60 - 100) 07/13/2017 8:50am Pulse Rate (adult) 71 beats per minute (60 - 100) 07/13/2017 8:50am Respiratory Rate 12 breaths per minute (12 - 24) 07/13/2017 8:50am Respirations 16 breaths per minute (12 - 20) 04/20/2017 5:45pm O2 Sat by Pulse Oximetry 99 % (90 - 100) 07/13/2017 8:50am Ambulatory Vital Signs Vital Response Date/Time Weight 222 lbs 6 oz 07/06/2017 2:27pm Temperature, Tympanic 96.7 degrees F 07/06/2017 2:27pm Blood Pressure, Sitting, Left Arm 112/70 mm Hg 07/06/2017 2:27pm Pulse Rate 93 bpm 07/06/2017 2:27pm Pulse Oximetry Pulse Oximetry 07/06/2017 2:27pm Results Laboratory Results Test Name Result Units [...] 4.5-7.5 04/20/2017 3:50pm 04/20/2017 4:16pm Urine Specific [place] >=1.030 1.002-1.030 04/20/2017 3:50pm 04/20/2017 4:16pm Urine [...] Culture Reflexed NO 04/20/2017 3:50pm 04/20/2017 4:17pm Pending Laboratory Results Test Name Collection Date/Time Surgical Pathology Case Number 07/13/2017 8:47am N/A 07/13/2017 8:47am Ambulatory Laboratory Results Test Name Result Units Flags Reference Result Date/Time Comments Hemoglobin A1c 6.4 11/25/2016 1:20pm Glucose Level 142 11/25/2016 1:20pm Hemoglobin A1c 7.1 % 05/16/2017 10:35am Procedures Procedure Status Date Provider(s) ULTRASOUND BREAST LIMITED Completed 10/27/16 ROUTINE VENIPUNCTURE [...] Completed 01/09/17 CO/MEMBANE DIFFUSE CAPACITY Completed 01/09/17 MEASURE BLOOD OXYGEN LEVEL Completed 05/25/17 Excision of ganglion cyst Completed 07/13/17 ALICIA VICTORIA DO US breast bilateral Completed 10/27/16 RAHUL DIAZ MD Pulmonary function test Completed 01/09/17 LINSEY EDMOND MD, FACP CT Head WO contrast Completed 04/20/17 ENRRIQUE PRINCE MD Magnetic resonance imaging of brain and brainstem without contrast Completed 04/21/17 JOHN RUSHING DO Noninvasive ear/pulse oximetry overnight monitor Completed 05/25/17 LINSEY EDMOND MD, FACP Encounters Encounter Location Arrival/Admit Date Discharge/Depart Date Attending Provider Departed Surgical Day Care [facility] 07/13/17 6:23am 07/13/17 2:41pm ALICIA VICTORIA DO Registered Practice [facility] 07/06/17 2:30pm LINSEY EDMOND FACP, MD Office Visit [facility] 07/06/17 2:30pm LINSEY EDMOND FACP, MD Office Visit [facility] 07/03/17 3:00pm ALICIA VICTORIA DO Registered Clinic [facility] 05/25/17 11:01am LINSEY EDMOND FACP, MD Office Visit [facility] 05/16/17 10:00am LINSEY EDMOND FACP, MD Office Visit [facility] 04/27/17 10:00am LINSEY EDMOND FACP MD Discharged Inpatient [facility] 04/21/17 11:05am 04/22/17 9:30am JOHN RUSHING DO Office Visit [facility] 04/11/17 1:00pm LINSEY EDMOND FACP, MD Registered Clinic [facility] 01/09/17 12:56pm LINSEY EDMOND FACP, MD Office Visit [facility] 01/09/17 8:30am LINSEY EDMOND FACP, MD Registered Clinic [facility] 11/25/16 1:10pm MACY HERBERT MD Office Visit [facility] 11/25/16 12:45pm MACY HERBERT MD Departed Emergency Room [facility] 11/10/16 4:21am 11/10/16 7:01am JD TRACY PA-C Registered Clinic [facility] 10/27/16 9:10am RAHUL DIAZ MD
[2018-09-11] MEDS: NITROGLYCERIN 0.4 MG SL TABS BTL 25'S SL PRN ×2 (18:41→18:46)
--- OUTSIDE RECORDS SUMMARY | 2018-09-11 18:42 | XMS REPORT | Continuity of Care Document ---
Author Author [facility] Organization [facility] Address Unknown Phone Unavailable Care Team Providers Care Pathology Laboratory Technologist Name Role Phone LINSEY EDMOND MD PCP Insurance Providers Payer Name Policy Number Subscriber Name Relationship [facility] [id number] Konrad Liu Advance Directives Directive Response Recorded Date/Time Advance [...] 6 Hours As Needed 02/09/11 Discontinued Ipratropium [place] Soln, 1 Vial Inhalation Every 6 Hours [...] Discontinued Influenza Virus Vaccine Quadrival (Flu Vacc [id number] 36MOS Up/Pf (Fluarix)) Syringe, 60 McgIntramusc Once 11/19/15 Discontinued Triamcinolone Acetonide Vial, 40 Mg Intramusc Once 12/07/15 Discontinued Social History Social History Problem Response Recorded Date/Time Marital Status 12/08/2015 5:09pm Query Response Start Date Stop Date Smoking [...] Height (Inches) 5 inches Height (Calculated Centimeters) 165.631854 cm Weight (Pounds) 224 Weight (Ounces) 6 oz Weight (Calculated Kilograms) 101.986515 kg Weight (Calculated Grams) 308489.692 gm Body Mass Index (BMI) 37 Body Mass Index (BMI) Classification Obese Temperature (Fahrenheit) 99 degrees F (96.8 - 100.4) Blood Pressure Systolic 129 mm Hg (100 - 140) Blood Pressure Diastolic 73 mm Hg (60 - 100) Pulse Rate (adult) 79 beats per minute (60 - 100) Respiratory Rate 18 breaths per minute (12 - 24) Respirations 20 breaths per minute (12 - 20) O2 Sat by Pulse Oximetry 99 % (90 - 100) Ambulatory Vital Signs Vital Response Date/Time Height 5 ft 5 in 12/07/2015 9:42am Weight 224 lbs 4 oz 12/07/2015 9:42am Temperature, Tympanic 95.3 degrees F 12/07/2015 9:42am Blood Pressure, Sitting, Left Arm 130/70 mm Hg 12/07/2015 9:42am Pulse Rate 96 bpm 12/07/2015 9:42am Respiration Rate 20 bpm 12/07/2015 9:42am Body Surface Area 2.21 m2 12/07/2015 9:42am Body Mass Index 37.3 kg/m2 12/07/2015 9:42am Results Test Source Date Result Interp. Ref. [...] Postmenopausal 25.8 - 134.8 Performed at: - [facility] [address], [place], [place] [id number] Production Control Coordinator: Yamilet Sarmiento MD, Phone: [phone] Free Thyroxine December 15, 2013 11:05pm 0.99 [...] Scanned Report May 16, 2013 12:00am Lab-PAP [id number] - Luteinizing Hormone May 16, 2013 10:52am [...] 15, 2013 11:05pm 23.0 NG/ML N 10.0-92.0 CU-Fdu-R-Type Natriuretic Peptide December 15, 2013 11:05pm 47 [...] LEVEL completed 11/25/15 Encounters Encounter Location Date/Time Departed Emergency Room [facility] 12/08/15 5:00pm Office Visit [facility] 12/07/15 10:30am Departed Emergency Room [facility] 12/04/15 10:41am Registered Clinic [facility] 11/25/15 6:45pm Registered Clinic [facility] 11/19/15 10:09am Office Visit [facility] 11/19/15 9:30am Office Visit [facility] 11/04/15 12:00pm Registered Clinic [facility] 08/25/15 9:47am Office Visit [facility] 08/20/15 11:15am Office Visit [facility] 06/02/15 9:00am Office Visit [facility] 04/16/15 9:45am Office Visit [facility] 08/04/14 11:00am Registered Clinic [facility] 03/17/14 1:44pm Registered Clinic [facility] 03/11/14 12:54pm Departed Emergency Room [facility] 02/13/14 11:42pm Office Visit [facility] 02/07/14 2:45pm Registered Emergency Room [facility] 12/15/13 10:45pm Office Visit [facility] 10/04/13 8:30am Office Visit [facility] 09/03/13 8:30am Office Visit [facility] 07/30/13 9:30am Departed Emergency Room [facility] 07/17/13 5:16pm Office Visit [facility] 06/05/13 8:30am Registered Clinic [facility] 05/16/13 10:45am Office Visit [facility] 05/16/13 10:00am Departed Emergency Room [facility] 05/13/13 4:43am Office Visit [facility] 10/09/12 11:15am Office Visit [facility] 07/05/12 2:30pm Departed Emergency Room [facility] 04/17/12 1:31am Office Visit [facility] 03/28/12 9:45am Registered Clinic [facility] 12/27/11 1:57pm Departed Emergency Room [facility] 05/08/11 6:44pm Departed Emergency Room [facility] 02/09/11 4:18am Office Visit [facility] 06/17/10 3:00pm Office Visit [facility] 04/22/10 3:15pm Office Visit [facility] 03/18/10 4:00pm Departed Emergency Room [facility] 02/02/10 9:01am Office Visit [facility] 01/05/10 8:45am Departed Emergency Room [facility] 12/15/09 4:02pm Office Visit [facility] 12/08/09 4:30pm Discharged Recurring [facility] 09/24/09 11:59am Office Visit [facility] 03/24/09 2:30pm Office Visit [facility] 03/18/09 10:30am Office Visit [facility] 01/29/09 11:00am Office Visit [facility] 01/26/09 11:00am Registered Clinic [facility] 01/02/09 4:44pm Registered Clinic [facility] 03/25/08 12:59pm Departed Emergency Room [facility] 12:00am Departed Emergency Room [facility] 12:00am Recent Diagnosis
--- OUTSIDE RECORDS SUMMARY | 2018-09-11 18:44 | XMS REPORT | Continuity of Care Document ---
Author Organization Unknown Address Unknown Phone Unavailable Allergies Active Description Code Type Severity Reaction Onset Reported/Identified Relationship to Patient Clinical Status Yes No Known Allergies [id number] Drug Allergy Unknown N/A 05/07/2018 Yes No Known Allergies [id number] Drug Allergy Unknown N/A 05/07/2018 Medications There is no data. Problems Date Dx Coded Attending Type Code Diagnosis Diagnosed By 05/29/2013 Other 626.2 EXCESSIVE MENSTRUATION 08/25/2015 LINESY EDMOND MD E11.9 TYPE 2 DIABETES MELLITUS WITHOUT COMPLICATIONS 08/25/2015 LINSEY EDMOND MD E11.9 TYPE 2 DIABETES MELLITUS WITHOUT COMPLICATIONS 11/19/2015 LINSEY EDMOND MD M23.8X2 OTHER INTERNAL DERANGEMENTS OF LEFT KNEE 11/19/2015 LINSEY EDMOND MD M25.562 PAIN IN LEFT KNEE 11/19/2015 LINSEY EDMOND MD Other M23.8X2 OTHER INTERNAL DERANGEMENTS OF LEFT KNEE 11/19/2015 LINSEY EDMOND MD M25.562 PAIN IN LEFT KNEE 11/19/2015 LINSEY EDMOND MD M25.562 PAIN IN LEFT KNEE 11/25/2015 LINSEY EDMOND MD E66.9 OBESITY, UNSPECIFIED 11/25/2015 LINSEY EDMOND MD I10 ESSENTIAL (PRIMARY) HYPERTENSION 11/25/2015 LINSEY EDMOND MD R53.83 OTHER FATIGUE 11/25/2015 LINSEY EDMOND MD E66.9 OBESITY, UNSPECIFIED 11/25/2015 LINSEY EDMOND MD I10 ESSENTIAL (PRIMARY) HYPERTENSION 11/25/2015 LINSEY EDMOND MD R53.83 OTHER FATIGUE 12/04/2015 KUSH TRACY PA-C Other J68.3 OTH AC SUBAC RESP COND D/T CHEMICALS, GAS, FUMES VAPORS 12/04/2015 KUSH TRACY PA-C Other Z77.028 CONTACT W AND EXPOSURE TO OT HAZARDOUS AROMATIC COMPOUNDS 12/08/2015 CHON KENDRICK DO J45.901 UNSPECIFIED ASTHMA WITH (ACUTE) EXACERBATION 12/08/2015 CHON KENDRICK DO R05 COUGH 12/16/2015 ALICIA VICTORIA DO M25.562 PAIN IN LEFT KNEE 12/16/2015 ALICIA VICTORIA DO M25.562 PAIN IN LEFT KNEE 12/16/2015 ALICIA VICTORIA DO M25.562 PAIN IN LEFT KNEE 12/21/2015 ALICIA VICTORIA DO M25.562 PAIN IN LEFT KNEE 12/21/2015 ALICIA VICTORIA DO M25.562 PAIN IN LEFT KNEE 12/21/2015 ALICIA VICTORIA DO M25.562 PAIN IN LEFT KNEE 01/28/2016 ALICIA VICTORIA DO E03.9 HYPOTHYROIDISM, UNSPECIFIED 01/28/2016 ALICIA VICTORIA DO E11.9 TYPE 2 DIABETES MELLITUS WITHOUT COMPLICATIONS 01/28/2016 ALICIA VICTORIA DO E78.5 HYPERLIPIDEMIA, UNSPECIFIED 01/28/2016 ALICIA VICTORIA DO F17.210 NICOTINE DEPENDENCE, CIGARETTES, UNCOMPLICATED 01/28/2016 ALICIA VICTORIA DO I10 ESSENTIAL (PRIMARY) HYPERTENSION 01/28/2016 ALICIA VICTORIA DO M17.12 UNILATERAL PRIMARY OSTEOARTHRITIS, LEFT KNEE 01/28/2016 ALICIA VICTORIA DO M23.42 LOOSE BODY IN KNEE, LEFT KNEE 01/28/2016 ALICIA VICTORIA DO S83.242A OTH TEAR OF MEDIAL MENISCUS, CURRENT INJURY, LEFT 01/28/2016 ALICIA VICTORIA DO X58.XXXA EXPOSURE TO OTHER SPECIFIED FACTORS, INITIAL ENCOU 01/28/2016 ALICIA VICTORIA DO E03.9 HYPOTHYROIDISM, UNSPECIFIED 01/28/2016 ALICIA VICTORIA DO E11.9 TYPE 2 DIABETES MELLITUS WITHOUT COMPLICATIONS 01/28/2016 ALICIA VICTORIA DO E78.5 HYPERLIPIDEMIA, UNSPECIFIED 01/28/2016 ALICIA VICTORIA DO F17.210 NICOTINE DEPENDENCE, CIGARETTES, UNCOMPLICATED 01/28/2016 VICTORIA DO, ALICIA J Other I10 ESSENTIAL (PRIMARY) HYPERTENSION 01/28/2016 ALICIA VICTORIA DO M17.12 UNILATERAL PRIMARY OSTEOARTHRITIS, LEFT KNEE 01/28/2016 ALICIA VICTORIA DO M23.42 LOOSE BODY IN KNEE, LEFT KNEE 01/28/2016 ALICIA VICTORIA DO S83.242A OTH TEAR OF MEDIAL MENISCUS, CURRENT INJURY, LEFT KNEE, INIT 01/28/2016 ALICIA VICTORIA DO X58.XXXA EXPOSURE TO OTHER SPECIFIED FACTORS, INITIAL ENCOUNTER 01/31/2016 JD TRACY PA-C Other K59.03 DRUG INDUCED CONSTIPATION 01/31/2016 JD TRACY PA-C Other R10.13 EPIGASTRIC PAIN 02/13/2016 ALICIA VICTORIA DO M25.562 PAIN IN LEFT KNEE 02/13/2016 ALICIA VICTORIA DO Z47.89 ENCOUNTER FOR OTHER ORTHOPEDIC AFTERCARE 02/13/2016 ALICIA VICTORIA DO M25.562 PAIN IN LEFT KNEE 02/13/2016 ALICIA VICTORIA DO Z47.89 ENCOUNTER FOR OTHER ORTHOPEDIC AFTERCARE 03/15/2016 ALICIA VICTORIA DO M25.562 PAIN IN LEFT KNEE 03/15/2016 ALICIA VICTORIA DO Z47.89 ENCOUNTER FOR OTHER ORTHOPEDIC AFTERCARE 03/15/2016 ALICIA IVCTORIA DO M25.562 PAIN IN LEFT KNEE 03/15/2016 ALICIA VICTORIA DO Z47.89 ENCOUNTER FOR OTHER ORTHOPEDIC AFTERCARE 03/18/2016 FLOR VUONG F41.9 ANXIETY DISORDER, UNSPECIFIED 03/18/2016 FLOR VUONG K22.4 DYSKINESIA OF ESOPHAGUS 03/18/2016 FLOR VUONG R10.13 EPIGASTRIC PAIN 06/23/2016 LINSEY EDMOND MD N63 UNSPECIFIED LUMP IN BREAST 06/23/2016 LINSEY EDMOND MD Z12.31 ENCNTR SCREEN MAMMOGRAM FOR MALIGNANT NEOPLASM OF 06/23/2016 LINSEY EDMOND MD Other Z12.31 ENCNTR SCREEN MAMMOGRAM FOR MALIGNANT NEOPLASM OF BREAST 06/23/2016 LINSEY EDMOND MD Other N63 UNSPECIFIED LUMP IN BREAST 06/23/2016 LINSEY EDMOND MD Other Z12.31 ENCNTR SCREEN MAMMOGRAM FOR MALIGNANT NEOPLASM OF BREAST 06/23/2016 LINSEY EDMOND MD Other Z12.31 ENCNTR SCREEN MAMMOGRAM FOR MALIGNANT NEOPLASM OF BREAST 06/24/2016 LINSEY EDMOND MD Other R92.8 OTH ABN AND INCONCLUSIVE FINDINGS ON DX IMAGING OF BREAST 06/30/2016 LINSEY EDMOND MD R92.8 OTH ABN AND INCONCLUSIVE FINDINGS ON DX IMAGING OF 06/30/2016 LINSEY EDMOND MD Other R92.8 OTH ABN AND INCONCLUSIVE FINDINGS ON DX IMAGING OF BREAST 06/30/2016 LINSEY EDMOND MD Other R92.8 OTH ABN AND INCONCLUSIVE FINDINGS ON DX IMAGING OF BREAST 06/30/2016 LINSEY EDMOND MD Other R92.8 OTH ABN AND INCONCLUSIVE FINDINGS ON DX IMAGING OF BREAST 10/27/2016 RAHUL DIAZ MD F41.1 GENERALIZED ANXIETY DISORDER 10/27/2016 RAHUL DIAZ MD F41.1 GENERALIZED ANXIETY DISORDER 11/10/2016 JD TRACY PA-C Other E03.9 HYPOTHYROIDISM, UNSPECIFIED 11/10/2016 JD TRACY-C Other E11.9 TYPE 2 DIABETES MELLITUS WITHOUT COMPLICATIONS 11/10/2016 JD TRACY-C Other I10 ESSENTIAL (PRIMARY) HYPERTENSION 11/10/2016 JD TRACY PA-C Other R10.84 GENERALIZED ABDOMINAL PAIN 11/10/2016 JD TRACY PA-C Other R11.2 NAUSEA WITH VOMITING, UNSPECIFIED 11/10/2016 JD TRACY PA-C Other R19.7 DIARRHEA, UNSPECIFIED 11/25/2016 MACY HERBERT M79.1 MYALGIA 11/25/2016 MACY HERBERT Other M79.1 MYALGIA 12/27/2016 LINSEY EDMOND MD Other R92.8 OTH ABN AND INCONCLUSIVE FINDINGS ON DX IMAGING OF BREAST 12/27/2016 LINSEY EDMOND MD Other R92.8 OTH ABN AND INCONCLUSIVE FINDINGS ON DX IMAGING OF BREAST 01/09/2017 LINSEY EDMOND MD R06.00 DYSPNEA, UNSPECIFIED 01/09/2017 LINSEY EDMOND MD Other R06.00 DYSPNEA, UNSPECIFIED 01/09/2017 LINSEY EDMOND MD Other R06.00 DYSPNEA, UNSPECIFIED 04/22/2017 JOHN RUSHING DO Other E03.9 HYPOTHYROIDISM, UNSPECIFIED 04/22/2017 JOHN RUSHING DO Other E11.9 TYPE 2 DIABETES MELLITUS WITHOUT COMPLICATIONS 04/22/2017 JOHN RUSHING DO Other E78.5 HYPERLIPIDEMIA, UNSPECIFIED 04/22/2017 JOHN RUSHING DO Other F17.210 NICOTINE DEPENDENCE, CIGARETTES, UNCOMPLICATED 04/22/2017 JOHN RUSHING DO Other F32.9 MAJOR DEPRESSIVE DISORDER, SINGLE EPISODE, UNSPECIFIED 04/22/2017 JOHN RUSHING DO Other F41.9 ANXIETY DISORDER, UNSPECIFIED 04/22/2017 JOHN RUSHING DO Other G44.201 TENSION-TYPE HEADACHE, UNSPECIFIED, INTRACTABLE 04/22/2017 JOHN RUSHING DO Other I10 ESSENTIAL (PRIMARY) HYPERTENSION 04/22/2017 JOHN RUSHING DO Other J01.20 ACUTE ETHMOIDAL SINUSITIS, UNSPECIFIED 04/22/2017 JOHN RUSHING DO Other J32.2 CHRONIC ETHMOIDAL SINUSITIS 04/22/2017 JOHN RUSHING DO Other J32.3 CHRONIC SPHENOIDAL SINUSITIS 04/22/2017 JOHN RUSHING DO Other R11.2 NAUSEA WITH VOMITING, UNSPECIFIED 04/22/2017 JOHN RUSHING DO Other R20.0 ANESTHESIA OF SKIN 04/22/2017 JOHN RUSHING DO Other R42 DIZZINESS AND GIDDINESS 04/22/2017 JOHN RUSHING DO Other R51 HEADACHE 05/17/2017 LINSEY EDMOND MD Other R00.1 BRADYCARDIA, UNSPECIFIED 05/17/2017 LINSEY EDMOND MD Other R51 HEADACHE 05/17/2017 LINSEY EDMOND MD Other R00.1 BRADYCARDIA, UNSPECIFIED 05/17/2017 LINSEY EDMOND MD Other R51 HEADACHE 05/17/2017 LINSEY EDMOND MD Other R00.1 BRADYCARDIA, UNSPECIFIED 05/17/2017 LINSEY EDMOND MD Other R51 HEADACHE 05/17/2017 LINSEY EDMOND MD Other R00.1 BRADYCARDIA, UNSPECIFIED 05/17/2017 LINSEY EDMOND MD Other R51 HEADACHE 05/25/2017 LINSEY EDMOND MD DG R00.1 BRADYCARDIA, UNSPECIFIED 05/25/2017 LINSEY EDMOND MD DG R51 HEADACHE 05/25/2017 LINSEY EDMOND MD Other R00.1 BRADYCARDIA, UNSPECIFIED 05/25/2017 LINSEY EDMOND MD Other R51 HEADACHE 05/25/2017 LINSEY EDMOND MD Other R00.1 BRADYCARDIA, UNSPECIFIED 05/25/2017 LINSEY EDMOND MD Other R51 HEADACHE 07/13/2017 ALICIA VICTORIA DO Other E11.9 TYPE 2 DIABETES MELLITUS WITHOUT COMPLICATIONS 07/13/2017 ALICIA VICTORIA DO Other F17.210 NICOTINE DEPENDENCE, CIGARETTES, UNCOMPLICATED 07/13/2017 ALICIA VICTORIA DO Other I10 ESSENTIAL (PRIMARY) HYPERTENSION 07/13/2017 ALICIA VICTORIA DO Other M67.844 OTHER SPECIFIED DISORDERS OF TENDON, LEFT HAND 05/08/2018 ENRRIQUE PRINCE MD E11.9 TYPE 2 DIABETES MELLITUS WITHOUT COMPLICATIONS 05/08/2018 ENRRIQUE PRINCE MD F17.210 NICOTINE DEPENDENCE, CIGARETTES, UNCOMPLICATED 05/08/2018 ENRRIQUE PRINCE MD G43.909 MIGRAINE, UNSP, NOT INTRACTABLE, WITHOUT STATUS ME 05/08/2018 ENRRIQUE PRINCE MD I10 ESSENTIAL (PRIMARY) HYPERTENSION 07/26/2018 GILDARDO GARCIA Other Z12.31 Z12.31 - Encounter for screening mammogram for malignant neoplasm of breast Procedures Code Description Performed By Performed On [id number] EXCISION OF LEFT KNEE JOINT, PERC ENDO APPROACH 01/28/2016 [id number] EXTIRPATION OF MATTER FROM L KNEE JT, PERC ENDO AP 01/28/2016 [id number] EXCISION OF LEFT HAND MUSCLE, OPEN APPROACH 07/13/2017 Results Test Result Range Complete blood count (CBC) with differential count - 01/30/16 23:30 LYMPHOCYTES % 36.0 18.0-47.0 MCV 95.5 80.0-99.0 RED CELL DISTRIBUTION WIDTH 11.7 11.5-14.5 Glucose measurement 11.6 4.8-10.8 Blood erythrocytes count (number/volume) 4.39 4.20-5.40 Blood hemoglobin measurement (mass/volume) 13.8 12.0-16.0 Venous blood hematocrit (volume fraction) 42.0 37.0-47.0 MCH 31.5 27.0-31.0 Erythrocyte mean corpuscular hemoglobin concentration measurement (mass/volume) 33.0 33.0-37.0 Blood platelets count (number/volume) 336 130-400 Automated neutrophil percentage 53.9 40.0-75.0 Monocyte percentage 5.9 0.0-10.0 Eosinophil % 3.0 0.0-6.0 Basophil % 1.3 0.0-2.0 Neutrophil count 6.3 1.9-8.1 Lymphocyte count 4.2 0.9-5.1 Monocyte count 0.7 0.1-0.9 Blood eosinophils count (number/volume) 0.3 0.0-0.6 Blood basophils count (number/volume) 0.1 0.0-0.2 PROTHROMBIN TIME - 01/30/16 23:30 PROTHROMBIN TIME 11.7 9.9-12.1 INR in platelet poor plasma or blood by coagulation assay 1.1 PARTIAL THROMBOPLASTIN TIME - 01/30/16 23:30 PARTIAL THROMBOPLASTIN TIME 27.2 23.0-32.2 Comprehensive metabolic panel - 01/30/16 23:30 ALKALINE PHOSPHATASE 51 40-150 CARBON DIOXIDE 20.0 22-29 EST GLOMERULAR FILTRATION RATE 92.9 >59 eGFR 107.1 >59 GLOBULIN 2.8 1.9-3.8 Glucose measurement 109 98-107 Serum or plasma urea nitrogen measurement (mass/volume) 17.0 7.0-18.7 Serum or plasma urea nitrogen/creatinine mass ratio 22 10- 20 Serum or plasma alanine aminotransferase measurement (enzymatic activity/volume) 18 0-55 Serum or plasma albumin measurement (mass/volume) 3.8 3.5- 5.0 Serum albumin to globulin ratio 14 0-14 Calcium measurement (mass/volume) 9.5 8.4-10.2 Thyroid stimulating hormone (TSH) assay with reflex to free thyroxine - 01/30/16 23:30 Serum albumin to globulin ratio 39 29-168 Serum or plasma creatine kinase MB measurement (mass/volume) - 01/30/16 23:30 Serum or plasma creatine kinase MB measurement (mass/volume) 0.3 0.0-3.4 Serum or plasma troponin i.cardiac measurement (mass/volume) - 01/30/16 23:30 Serum or plasma troponin i.cardiac measurement (mass/volume) < 0.00-0.06 Serum or plasma myoglobin measurement (mass/volume) - 01/30/16 23:30 Serum or plasma myoglobin measurement (mass/volume) 18.3 10.0-106.0 PROTHROMBIN TIME - 03/18/16 02:15 PROTHROMBIN TIME 10.7 9.9-12.1 INR in platelet poor plasma or blood by coagulation assay 1.0 Complete blood count (CBC) with reflex manual white blood cell differential - 03/18/16 02:15 LYMPHOCYTES % 37 18-47 MCV 93.2 80.0-99.0 NEUTROPHILS % 60 40-75 RED CELL DISTRIBUTION WIDTH 11.7 11.5-14.5 Glucose measurement 16.6 4.8-10.8 Blood erythrocytes count (number/volume) 4.60 4.20-5.40 Blood hemoglobin measurement (mass/volume) 14.8 12.0-16.0 Venous blood hematocrit (volume fraction) 42.8 37.0-47.0 MCH 32.2 27.0-31.0 Erythrocyte mean corpuscular hemoglobin concentration measurement (mass/volume) 34.6 33.0-37.0 Blood platelets count (number/volume) 383 130-400 Monocyte percentage 3 0-10 Neutrophil count 10.0 1.9-8.1 Lymphocyte count 6.1 0.9-5.1 Monocyte count 0.5 0.1-0.9 RBC morphology NORMAL Total cell count 100 100 Lipase - 03/18/16 02:15 Lipase 33 8-78 Comprehensive metabolic panel - 03/18/16 02:15 ALKALINE PHOSPHATASE 57 40-150 CARBON DIOXIDE 21.0 22-29 EST GLOMERULAR FILTRATION RATE 65.3 >59 eGFR 75.3 >59 GLOBULIN 3.5 1.9-3.8 Glucose measurement 103 98-107 Serum or plasma urea nitrogen measurement (mass/volume) 30.0 7.0-18.7 Serum or plasma urea nitrogen/creatinine mass ratio 29 10- 20 Serum or plasma alanine aminotransferase measurement (enzymatic activity/volume) 11 0-55 Serum or plasma albumin measurement (mass/volume) 3.7 3.5- 5.0 Serum albumin to globulin ratio 16 0-14 Calcium measurement (mass/volume) 9.6 8.4-10.2 Thyroid stimulating hormone (TSH) assay with reflex to free thyroxine - 03/18/16 02:15 Serum albumin to globulin ratio 26 29-168 Serum or plasma creatine kinase MB measurement (mass/volume) - 03/18/16 02:15 Serum or plasma creatine kinase MB measurement (mass/volume) 0.5 0.0-3.4 Serum or plasma troponin i.cardiac measurement (mass/volume) - 03/18/16 02:15 Serum or plasma troponin i.cardiac measurement (mass/volume) < 0.00-0.06 Serum or plasma myoglobin measurement (mass/volume) - 03/18/16 02:15 Serum or plasma myoglobin measurement (mass/volume) 14.3 10.0-106.0 Complete blood count (CBC) with differential count - 11/10/16 04:57 LYMPHOCYTES % 30.1 18.0-47.0 RED CELL DISTRIBUTION WIDTH 12.1 11.5-14.5 Glucose measurement 3.1 0.9-5.1 Serum albumin to globulin ratio 0.6 0.1-0.9 Blood erythrocytes count (number/volume) 4.90 4.20-5.40 Blood hemoglobin measurement (mass/volume) 15.0 12.0-16.0 Venous blood hematocrit (volume fraction) 46.5 37.0-47.0 MCH 30.6 27.0-31.0 Erythrocyte mean corpuscular hemoglobin concentration measurement (mass/volume) 32.2 33.0-37.0 Blood platelets count (number/volume) 324 130-400 Automated neutrophil percentage 60.5 40.0-75.0 Monocyte percentage 5.7 0.0-10.0 Eosinophil % 2.9 0.0-6.0 Basophil % 0.8 0.0-2.0 Neutrophil count 6.3 1.9-8.1 Blood eosinophils count (number/volume) 0.3 0.0-0.6 Blood basophils count (number/volume) 0.1 0.0-0.2 MCV 94.9 80.0-99.0 Comprehensive metabolic panel - 11/10/16 04:57 ALKALINE PHOSPHATASE 63 40-150 CARBON DIOXIDE 22.0 22-29 EST GLOMERULAR FILTRATION RATE 79.6 >59 eGFR 91.7 >59 GLOBULIN 3.9 1.9-3.8 Glucose measurement 105 98-107 Serum or plasma urea nitrogen measurement (mass/volume) 24.0 7.0-18.7 Serum or plasma urea nitrogen/creatinine mass ratio 28 10- 20 Serum or plasma alanine aminotransferase measurement (enzymatic activity/volume) 19 0-55 Serum or plasma albumin measurement (mass/volume) 3.8 3.5- 5.0 Serum albumin to globulin ratio 13 0-14 Calcium measurement (mass/volume) 9.9 8.4-10.2 Drug screening - 11/10/16 04:57 Glucose measurement 46 25-125 Lipase - 11/10/16 04:57 Lipase 33 8-78 Drug screening - 11/10/16 04:57 Glucose measurement 1.4 0.5-2.2 Urinalysis with reflex to culture - 11/10/16 05:00 BILIRUBIN,URINE NEGATIVE NEGATIVE GLUCOSE,URINE NEGATIVE NEGATIVE KETONES,URINE NEGATIVE NEGATIVE UROBILINOGEN,URINE 0.2 0.2 WBC,URINE 0-2 NONE SEEN Urine culture YES Urine color YELLOW YELLOW Urine appearance SL CLOUDY CLEAR Urine pH measurement 5.5 4.5-7.5 Urine blood detection 1+ NEGATIVE Urine nitrate measurement NEGATIVE NEGATIVE Leukocyte esterase ur dipstick TRACE NEGATIVE Erythrocytes detection in urine sediment by light microscopy 5-10 NONE SEEN Bacteria detection in urine sediment by light microscopy 1+ NONE SEEN Squamous epithelial cells detection in urine sediment by light microscopy 5-10 Urine protein detection NEGATIVE NEGATIVE Urine specific gravity measurement >= 1.002-1.030 Urine culture - 11/10/16 05:00 Urine culture Final report Urine culture - 11/10/16 05:00 Complete blood count (CBC) with differential count - 11/25/16 13:19 Glucose measurement TNP 4.8-10.8 Erythrocyte sedimentation rate - 11/25/16 13:19 Erythrocyte sedimentation rate TNP 0-20 Comprehensive metabolic panel - 11/25/16 13:19 Glucose measurement TNP 70-105 Thyroid stimulating hormone (TSH) assay with reflex to free thyroxine - 11/25/16 13:19 Serum albumin to globulin ratio TNP 26-308 Magnesium measurement - 11/25/16 13:19 Magnesium measurement TNP 1.6-2.6 Complete blood count (CBC) with differential count - 04/20/17 15:40 LYMPHOCYTES % 30.2 18.0-47.0 RED CELL DISTRIBUTION WIDTH 12.5 11.5-14.5 Glucose measurement 3.2 0.9-5.1 Serum albumin to globulin ratio 0.4 0.1-0.9 Blood erythrocytes count (number/volume) 4.81 4.20-5.40 Blood hemoglobin measurement (mass/volume) 15.2 12.0-16.0 Venous blood hematocrit (volume fraction) 45.4 37.0-47.0 MCH 31.7 27.0-31.0 Erythrocyte mean corpuscular hemoglobin concentration measurement (mass/volume) 33.5 33.0-37.0 Blood platelets count (number/volume) 345 130-400 Automated neutrophil percentage 63.2 40.0-75.0 Monocyte percentage 3.8 0.0-10.0 Eosinophil % 2.1 0.0-6.0 Basophil % 0.7 0.0-2.0 Neutrophil count 6.7 1.9-8.1 Blood eosinophils count (number/volume) 0.2 0.0-0.6 Blood basophils count (number/volume) 0.1 0.0-0.2 MCV 94.5 80.0-99.0 Comprehensive metabolic panel - 04/20/17 15:40 ALKALINE PHOSPHATASE 75 40-150 CARBON DIOXIDE 21.0 22-29 EST GLOMERULAR FILTRATION RATE 89.4 >59 eGFR 103.1 >59 GLOBULIN 3.8 1.9-3.8 Glucose measurement 108 98-107 Serum or plasma urea nitrogen measurement (mass/volume) 15.0 7.0-18.7 Serum or plasma urea nitrogen/creatinine mass ratio 19 10- 20 Serum or plasma alanine aminotransferase measurement (enzymatic activity/volume) 22 0-55 Serum or plasma albumin measurement (mass/volume) 3.5 3.5- 5.0 Serum albumin to globulin ratio 15 0-14 Calcium measurement (mass/volume) 9.4 8.4-10.2 THYROID STIMULATING HORMONE - 04/20/17 15:40 THYROID STIMULATING HORMONE 0.05 0.35-4.94 Serum or plasma thyroxine (T4) free measurement (mass/volume) - 04/20/17 15:40 Serum or plasma thyroxine (T4) free measurement (mass/volume) 1.00 0.70-1.48 Urinalysis with reflex to culture - 04/20/17 15:50 BILIRUBIN,URINE NEGATIVE NEGATIVE GLUCOSE,URINE NEGATIVE NEGATIVE KETONES,URINE NEGATIVE NEGATIVE UROBILINOGEN,URINE 0.2 0.2 WBC,URINE 0-2 NONE SEEN Urine culture NO Urine color YELLOW YELLOW Urine appearance Clear CLEAR Urine pH measurement 5.0 4.5-7.5 Urine blood detection 3+ NEGATIVE Urine nitrate measurement NEGATIVE NEGATIVE Leukocyte esterase ur dipstick NEGATIVE NEGATIVE Erythrocytes detection in urine sediment by light microscopy 0-2 NONE SEEN Bacteria detection in urine sediment by light microscopy TRACE NONE SEEN Squamous epithelial cells detection in urine sediment by light microscopy 5-10 Urine protein detection NEGATIVE NEGATIVE Urine specific gravity measurement >= 1.002-1.030 TISSUE - 07/13/17 08:15 DATE REPORTED 07/18/17 SPECIMEN NUMBER [id number] Encounters ACCT No. Visit Date/Time Discharge Status Pt. Type Provider Facility Loc./Unit Complaint [id number] 07/26/2018 15:53:00 07/26/2018 15:54:00 DIS Outpatient [facility] MAMMO screening [id number] 05/07/2018 23:34:00 05/08/2018 01:40:00 DIS Emergency ENRRIQUE PRINCE MD [facility] ER MIGRAINE [id number] 07/13/2017 06:23:00 07/13/2017 14:41:00 DIS Outpatient ALICIA VICTORIA DO [facility] PARK EXC MASS LEFT MIDDLE FINGER [id number] 05/25/2017 11:01:00 05/25/2017 23:59:59 CLS Outpatient FELI MCCLENDON [facility] CP F/U HEADACHES [id number] 04/21/2017 11:05:00 04/22/2017 09:30:00 DIS Inpatient СЕРГЕЙJOHN SILVA DO [facility] MED/SURG HEADACHE [id number] 12/27/2016 11:06:00 12/27/2016 23:59:59 CLS Preadmit FELI MCCLENDON [facility] RAD [id number] 11/10/2016 04:21:00 11/10/2016 07:01:00 DIS Emergency JD TRACY PA-C [facility] ER SICK N/V ABD PAIN [id number] 03/18/2016 01:55:00 03/18/2016 03:43:00 DIS Emergency FLOR VUONG [facility] ER CHEST PAIN [id number] 03/08/2016 08:30:00 03/15/2016 00:01:00 DIS Unknown ALICIA VICTORIA DO [facility] PT SP KNEE SCOPE LT PAIN [id number] 02/12/2016 07:51:00 02/13/2016 00:01:00 DIS Unknown ALICIA VICTORIA DO [facility] PT SP KNEE SCOPE LT PAIN [id number] 01/30/2016 21:46:00 01/31/2016 01:34:00 DIS Emergency JD TRACY PA-C [facility] ER CHEST PAIN/CAN'T SWALLOW [id number] 12/16/2015 09:27:00 12/16/2015 23:59:59 CLS Unknown ESME BARAJAS ALICIA J [facility] RAD LT KNEE PAIN XRAYS COMPLETE PCP JSTONE [id number] 12/08/2015 17:00:00 12/08/2015 18:24:00 DIS Emergency RENEVENCHON MERCEDES DO [facility] ER SOA/CHEST HURTS/COUGH [id number] 12/04/2015 10:41:00 12/04/2015 12:18:00 DIS Emergency KUSH TRACY PA-C [facility] ER MGP EXPOSURE [id number] 01/09/2017 12:56:00 ACT Unknown FELI MCCLENDON [facility] CP CP [id number] 11/25/2016 13:10:00 ACT Unknown MACY HERBERT [facility] LAB LAB MYALGIA [id number] 10/27/2016 09:10:00 ACT Unknown JOE MCCLENDON, RAHUL Hernandez [facility] RAD RAD [id number] 06/30/2016 09:14:00 ACT Unknown FELI MCCLENDON [facility] RAD RAD [id number] 06/23/2016 11:47:00 ACT Unknown FELI MCCLENDON [facility] RAD PAP/WELLWOMEN [id number] 01/28/2016 10:51:00 ACT Unknown ALICIA VICTORIA DO [facility] PARK LEFT KNEE ARTHROSCOPY [id number] 11/25/2015 18:45:00 ACT Unknown FELI MCCLENDON, [facility] CP TIRED [id number] 11/19/2015 10:09:00 ACT Unknown FELI MCCLENDON, [facility] RAD XREAY [id number] 08/25/2015 09:47:00 ACT Unknown FELI MCCLENDON, [facility] LAB LAB; E11.9 [id number] 05/29/2013 00:00:00 Document Registration [id number] 10/27/2017 16:55:00 10/27/2017 23:59:59 CLS Outpatient RINA MARIE [facility]
--- NOTE | 2018-09-11 18:55 | ED Chest Pain ---
General Chief Complaint: Chest Pain Stated Complaint: SOB,CHEST PAIN Source: patient Exam Limitations: no limitations History of Present Illness Date Seen by Provider: Sep 11, 2018 Time Seen by Provider: 18:30 Initial Comments Patient presents to ER with her sister and chief complaint that she has been experiencing intermittent chest pain lasting anywhere from 3-5 minutes the past week and a half. The pain comes with a cold clammy feeling under her left ribs a nd left lower chest wall. She says it is not worse with any movement or position nor is it better. She has not taken anything for. She does take antacids. She has no history of coronary disease but she does have a maternal history of heart attack in her early 50s. She says she gets a little short of breath on exertion when the chest pains, and this particular episode has lasted about 45 minutes. 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 She has had a cough today that is nonproductive. She smokes cigarettes for the past 15 years. She is prediabetic has hypercholesterolemia on atorvastatin and does not take any blood pressure medicines. She is on Victoza. Allergies and Home Medications Allergies Coded Allergies: No Known Drug Allergies (Unverified , 09/11/18) Patient Home Medication List Home Medication List Reviewed: Yes Review of Systems Review of Systems Constitutional: No chills, No diaphoresis EENTM: No Blurred Vision, No Double Vision Respiratory: Cough, Shortness of Air, SOA With Exertion Cardiovascular: Chest Pain; Denies Edema, Denies Irregular Heart Rate, Denies Lightheadedness, Denies Palpitations Gastrointestinal: Denies Abdomen Distended, Denies Abdominal Pain, Denies Constipated, Denies Diarrhea, Denies Nausea Genitourinary: Denies Burning, Denies Discharge Musculoskeletal: No back pain, No joint swelling Past Ehvugbm-Klaswh-Sbokwq Hx Patient Social History Alcohol Use: Denies Use Recreational Drug Use: No Smoking Status: Current Everyday Smoker Type Used: Cigarettes (35 pack years) Recent Foreign Travel: No Contact w/Someone Who Travel: No Physical Exam Vital Signs Vital Signs - First Documented Capillary Refill : Height, Weight, BMI Height: '" Weight: lbs. oz. kg; BMI Method: General Appearance: No Apparent Distress, WD/WN HEENT: PERRL/EOMI, Pharynx Normal, Moist Mucous Membranes Respiratory: Chest Non Tender, Lungs Clear, Normal Breath Sounds, No Accessory Muscle Use, No Respiratory Distress Cardiovascular: Regular Rate, Rhythm, No Edema Gastrointestinal: Normal Bowel Sounds, Non Tender, Soft Neurologic/Psychiatric: Alert, Oriented x3, No Motor/Sensory Deficits Skin: Normal Color, Warm/Dry Progress/Results/Core Measures Results/Orders Lab Results Laboratory Tests Test 09/11/18 18:30 Range/Units White Blood Count 9.0 4.3-11.0 10^3/uL Red Blood Count 4.83 4.35-5.85 10^6/uL Hemoglobin 15.2 11.5-16.0 G/DL Hematocrit 44 35-52 % Mean Corpuscular Volume 91 80-99 FL Mean Corpuscular Hemoglobin 32 25-34 PG Mean Corpuscular Hemoglobin Concent 35 32-36 G/DL Red Cell Distribution Width 13.0 10.0-14.5 % Platelet Count 333 130-400 10^3/uL Mean Platelet Volume 9.6 7.4-10.4 FL Neutrophils (%) (Auto) 47 42-75 % Lymphocytes (%) (Auto) 45 H 12-44 % Monocytes (%) (Auto) 5 0-12 % Eosinophils (%) (Auto) 2 0-10 % Basophils (%) (Auto) 0 0-10 % Neutrophils # (Auto) 4.2 1.8-7.8 X 10^3 Lymphocytes # (Auto) 4.1 H 1.0-4.0 X 10^3 Monocytes # (Auto) 0.5 0.0-1.0 X 10^3 Eosinophils # (Auto) 0.1 0.0-0.3 10^3/uL Basophils # (Auto) 0.0 0.0-0.1 10^3/uL Prothrombin Time 12.6 12.2-14.7 SEC INR Comment 0.9 0.8-1.4 Activated Partial Thromboplast Time 25 24-35 SEC D-Dimer <= 0.27 0.00-0.49 UG/ML Sodium Level 139 135-145 MMOL/L Potassium Level 3.8 3.6-5.0 MMOL/L Chloride Level 105 98-107 MMOL/L Carbon Dioxide Level 19 L 21-32 MMOL/L Anion Gap 15 H 5-14 MMOL/L Blood Urea Nitrogen 17 7-18 MG/DL Creatinine 1.02 0.60-1.30 MG/DL Estimat Glomerular Filtration Rate 58 BUN/Creatinine Ratio 17 Glucose Level 104 70-105 MG/DL Calcium Level 10.4 H 8.5-10.1 MG/DL Corrected Calcium 8.5-10.1 MG/DL Magnesium Level 2.2 1.8-2.4 MG/DL Total Bilirubin 0.3 0.1-1.0 MG/DL Aspartate Amino Transf (AST/SGOT) 19 5-34 U/L Alanine Aminotransferase (ALT/SGPT) 22 0-55 U/L Alkaline Phosphatase 71 40-136 U/L Myoglobin 36.8 10.0-92.0 NG/ML Troponin I < 0.028 <0.028 NG/ML B-Type Natriuretic Peptide < 10.0 <100.0 PG/ML Total Protein 8.1 6.4-8.2 GM/DL Albumin 4.7 H 3.2-4.5 GM/DL Lipase 29 8-78 U/L My Orders Orders - YUMIKO CEBALLOS Cbc With Automated Diff (09/11/18 18:49) Magnesium (09/11/18 18:49) Chest 1 View, Ap/Pa Only (09/11/18 18:49) Ekg Tracing (09/11/18 18:49) Cardiac Profile 1 (09/11/18 18:49) Comprehensive Metabolic Panel (09/11/18 18:49) Myoglobin Serum (09/11/18 18:49) Protime With Inr (09/11/18 18:49) Partial Thromboplastin Time (09/11/18 18:49) O2 (09/11/18 18:49) Monitor-Rhythm Ecg Trace Only (09/11/18 18:49) Lipid Panel (09/12/18 06:00) Ed Iv/Invasive Line Start (09/11/18 18:49) Lipase (09/11/18 18:49) BNP (09/11/18 18:49) Fibrin Degradation Products (09/11/18 18:49) Nitroglycerin 0.4 Mg Btl 25's (Nitrostat (09/11/18 19:00) Aspirin Chewable Tablet (Baby Aspirin Ch (09/11/18 19:00) Lidocaine 2% Viscous 15 Ml (Xylocaine Vi (09/11/18 19:45) Famotidine Tablet (Pepcid Tablet) (09/11/18 19:38) Antacid Suspension (Mylanta Suspension (09/11/18 19:45) Ekg Tracing (09/11/18 19:44) Medications Given in ED Current Medications Medications Dose Ordered Sig/Merissa Route Start Time Stop Time Status Last Admin Dose Admin Al Hydrox/Mg Hydrox/Simethicone 30 ml ONCE ONCE PO 09/11/18 19:45 09/11/18 19:46 DC 09/11/18 19:57 30 ML Aspirin 324 mg ONCE ONCE PO 09/11/18 19:00 09/11/18 19:02 DC 09/11/18 18:41 324 MG Lidocaine HCl 15 ml ONCE ONCE PO 09/11/18 19:45 09/11/18 19:46 DC 09/11/18 19:57 15 ML Nitroglycerin 0.4 mg UD PRN SL 09/11/18 19:00 09/11/18 18:46 0.4 MG Vital Signs/I&O 09/11/18 09/11/18 18:25 18:25 Temp 98.7 Pulse 76 Resp 20 B/P (MAP) 159/95 (116) Pulse Ox 100 O2 Delivery Room Air Room Air Progress Progress Note : Time: 19:21 Progress Note 8 points low risk by ED ACS score. If the patient also has: (1) EKG without new ischemic changes and (2) negative initial and 2-hour troponins, then this patient is safe for discharge to early outpatient follow-up investigation (or proceed to earlier inpatient testing). If EKG with ischemic changes or positive troponin, they are not low risk and requ cosme normal risk stratification. Nitroglycerin took her pain from a 6 to a 5 out of 10 which she said did not help but did give her a headache. We'll trial a GI cocktail given the colicky nature of her chest pain. Heart Score four points: High risk. 1265% 30-day MACE. Admit to hospital or observation. Further testing indicated. 2030: Patient was pain-free before the GI cocktail. Initial ECG Impression Date: Sep 11, 2018 Initial ECG Impression Time: 18:24 Initial ECG Rate: 77 Initial ECG Rhythm: Normal Sinus Initial ECG Intervals: Normal Initial ECG Impression: Normal Initial ECG Comparisson: No Previous ECG Available Comment No ST elevation or depression. Mild respiratory artifact. EKG : EKG Time: 19:44 Rate: 64 Rhythm: Normal Sinus Intervals: Normal ECG Comparisson: Unchanged ECG Impression: Normal Comment No ST elevation or depression. Diagnostic Imaging Diagonstic Imaging: Xray Plain Films/CT/US/NM/MRI: chest (1v) Comments [facility], [place] NAME: SHANE ELDER [facility] REC#: [id number] PT STATUS: REG ER : 1970 PHYSICIAN: YUMIKO CEBALLOS MD ADMIT DATE: 09/11/18/ER Draft Date of Exam:09/11/18 CHEST 1 VIEW, AP/PA ONLY INDICATION: Chest pain and shortness of air. TIME OF EXAM: 6:58 PM COMPARISON: No prior studies are available for comparison. FINDINGS: The heart size is normal. The pulmonary vascularity is unremarkable. The lungs are clear. No infiltrate, effusion or pneumothorax is detected. IMPRESSION: No acute cardiopulmonary process is detected. Dictated on workstation # [id number] Dict: 09/11/181905 Trans: 09/11/181907 [id number] Interpreted by: LETY KING MD Electronically signed by: Reviewed: Reviewed by Me Departure Communication (Admissions) Time/Spoke to Admitting Phy: 20:29 Dr Arciniega: Discussed case lab EKG and he agrees to observe the patient. Time/Spoke to Consulting Phy: 20:10 Discussed the case and Dr. Merchant agrees since the patient has some risk factors that he would observe the patient and see her in the morning. Impression Primary Impression: Chest pain Qualified Codes: R07.9 - Chest pain, unspecified Additional Impression: Myocardial bridge Disposition: ADMITTED INPATIENT Condition: Stable Admissions Decision to Admit Reason: Admit from ER (General) Decision to Admit/Date: Sep 11, 2018 Time/Decision to Admit Time: 20:00 YUMIKO CEBALLOS Sep 11, 2018 18:55
[2018-09-11 19:00] LABS: BASOPHILS % (AUTO) 0 % (0-10); EOSINOPHILS # (AUTO) 0.1 10^3/uL (0.0-0.3); EOSINOPHILS % (AUTO) 2 % (0-10); HEMATOCRIT 44 % (35-52); HEMOGLOBIN 15.2 G/DL (11.5-16.0); LYMPHOCYTES # (AUTO) 4.1 X 10^3 (1.0-4.0); LYMPHOCYTES % (AUTO) 45 % (12-44); MEAN CORPUSCULAR HEMOGLOBIN 32 PG (25-34); MEAN CORPUSCULAR HGB CONC 35 G/DL (32-36); MEAN CORPUSCULAR VOLUME 91 FL (80-99); MEAN PLATELET VOLUME 9.6 FL (7.4-10.4); MONOCYTES # (AUTO) 0.5 X 10^3 (0.0-1.0); MONOCYTES % (AUTO) 5 % (0-12); NEUTROPHILS # (AUTO) 4.2 X 10^3 (1.8-7.8); NEUTROPHILS % (AUTO) 47 % (42-75); PLATELET COUNT 333 10^3/uL (130-400)
[2018-09-11] MEDS ORDERED: ASPIRIN 81 MG CHEW (CHILDREN'S ASA) PO ONE (19:00)
[2018-09-11 19:05] LABS: INR 0.9 (0.8-1.4); PROTHROMBIN TIME PATIENT 12.6 SEC (12.2-14.7)
--- NOTE | 2018-09-11 19:08 | Diagnostic Imaging Report ---
INDICATION: Chest pain and shortness of air. TIME OF EXAM: 6:58 PM COMPARISON: No prior studies are available for comparison. FINDINGS: The heart size is normal. The pulmonary vascularity is unremarkable. The lungs are clear. No infiltrate, effusion or pneumothorax is detected. IMPRESSION: No acute cardiopulmonary process is detected. Dictated by: Dictated on workstation # [id number]
[2018-09-11 19:12] LABS: ALANINE AMINOTRANSFERASE 22 U/L (0-55); ALBUMIN 4.7 GM/DL (3.2-4.5); ALKALINE PHOSPHATASE 71 U/L (40-136); BILIRUBIN,TOTAL 0.3 MG/DL (0.1-1.0); BUN/CREATININE RATIO 17; CALCIUM 10.4 MG/DL (8.5-10.1); CARBON DIOXIDE 19 MMOL/L (21-32); CHLORIDE 105 MMOL/L (98-107); CREATININE SERUM 1.02 MG/DL (0.60-1.30); GFR ESTIMATED 58; GLUCOSE 104 MG/DL (70-105); LIPASE 29 U/L (8-78); MAGNESIUM 2.2 MG/DL (1.8-2.4); POTASSIUM 3.8 MMOL/L (3.6-5.0); SODIUM 139 MMOL/L (135-145); TOTAL PROTEIN 8.1 GM/DL (6.4-8.2)
[2018-09-11] MEDS ORDERED: FAMOTIDINE 20 MG (PEPCID) TABLET PO STA (19:38)
[2018-09-11] MEDS ORDERED: ANTACID SUSP 30 ML UDC (MYLANTA) PO ONE (19:45)
[2018-09-11] MEDS ORDERED: LIDOCAINE 2% VISCOUS 15 ML UDC PO ONE (19:45)
--- OUTSIDE RECORDS SUMMARY | 2018-09-11 21:08 | XMS REPORT | Continuity of Care Document ---
Author Organization Unknown Address Unknown Phone Unavailable Allergies Active Description Code Type Severity Reaction Onset Reported/Identified Relationship to Patient Clinical Status Yes No Known Allergies [id number] Drug Allergy Unknown N/A 05/07/2018 Yes No Known Allergies [id number] Drug Allergy Unknown N/A 05/07/2018 Medications There is no data. Problems Date Dx Coded Attending Type Code Diagnosis Diagnosed By 05/29/2013 Other 626.2 EXCESSIVE MENSTRUATION 08/25/2015 LINSEY EDMOND MD E11.9 TYPE 2 [...] LINSEY EDMOND MD R53.83 OTHER FATIGUE 12/04/2015 UKSH TRACY PA-C Other J68.3 OTH AC SUBAC [...] MD Other R06.00 DYSPNEA, UNSPECIFIED 04/22/2017 JOHN URSHING DO Other E03.9 HYPOTHYROIDISM, UNSPECIFIED 04/22/2017 JOHN [...] G43.909 MIGRAINE, UNSP, NOT INTRACTABLE, WITHOUT STATUS DE 05/08/2018 ENRRIQUE PRINCE MD I10 ESSENTIAL (PRIMARY) HYPERTENSION 07/26/2018 GILDARDO GARCIA Other Z12.31 Z12.31 - Encounter for screening mammogram for malignant neoplasm of breast Procedures Code Description Performed By Performed On [id number] EXCISION OF LEFT KNEE JOINT, PERC ENDO APPROACH 01/28/2016 [id number] EXTIRPATION OF MATTER FROM L KNEE JT, PERC ENDO AP 01/28/2016 [id number] EXCISION OF LEFT HAND MUSCLE, OPEN APPROACH [...] Status Pt. Type Provider Facility Loc./Unit Complaint [id number] 07/26/2018 15:53:00 07/26/2018 15:54:00 DIS Outpatient [facility] MAMMO screening [id number] 05/07/2018 23:34:00 05/08/2018 01:40:00 DIS Emergency ENRRIQUE PRINCE MD [facility] ER MIGRAINE [id number] 07/13/2017 06:23:00 07/13/2017 14:41:00 DIS Outpatient ALICIA VICTORIA DO [facility] PARK EXC MASS LEFT MIDDLE FINGER [id number] 05/25/2017 11:01:00 05/25/2017 23:59:59 CLS Outpatient FELI MCCLENDON [facility] [place] F/U HEADACHES [id number] 04/21/2017 11:05:00 04/22/2017 09:30:00 DIS Inpatient СЕРГЕЙJOHN SILVA DO [facility] MED/SURG HEADACHE [id number] 12/27/2016 11:06:00 12/27/2016 23:59:59 CLS Preadmit FELI MCCLEND[place] [facility] [place] [id number] 11/10/2016 04:21:00 11/10/2016 07:01:00 DIS Emergency JD TRACY PA-C [facility] ER SICK N/V ABD PAIN [id number] 03/18/2016 01:55:00 03/18/2016 03:43:00 DIS Emergency FLOR VUONG [facility] ER CHEST PAIN [id number] 03/08/2016 08:30:00 03/15/2016 00:01:00 DIS Unknown ALICIA VICTORIA DO [facility] PT SP KNEE SCOPE LT PAIN [id number] 02/12/2016 07:51:00 02/13/2016 00:01:00 DIS Unknown ALICIA VICTORIA DO [facility] PT SP KNEE SCOPE LT PAIN [id number] 01/30/2016 21:46:00 01/31/2016 01:34:00 DIS Emergency JD TRACY PA-C [facility] ER CHEST PAIN/CAN'T SWALLOW [id number] 12/16/2015 09:27:00 12/16/2015 23:59:59 CLS Unknown ESME BARAJAS ALICIA J [facility] RAD LT KNEE PAIN XRAYS COMPLETE PCP JSTONE [id number] 12/08/2015 17:00:00 12/08/2015 18:24:00 DIS Emergency RENEVENCHON MERCEDES DO [facility] ER SOA/CHEST HURTS/COUGH [id number] 12/04/2015 10:41:00 12/04/2015 12:18:00 DIS Emergency KUSH TRACY PA-C [facility] ER MGP EXPOSURE [id number] 01/09/2017 12:56:00 ACT Unknown FELI MCCLENDON [facility] [place] CP [id number] 11/25/2016 13:10:00 ACT Unknown MACY HERBERT [facility] LAB LAB MYALGIA [id number] 10/27/2016 09:10:00 ACT Unknown JOE MCCLENDON, RAHUL Hernandez [facility] RAD RAD [id number] 06/30/2016 09:14:00 ACT Unknown FELI MCCLENDON [facility] [place] RAD [id number] 06/23/2016 11:47:00 ACT Unknown FELI MCCLENDON [facility] [place] PAP/WELLWOMEN [id number] 01/28/2016 10:51:00 ACT Unknown ALICIA VICTORIA DO [facility] PARK LEFT KNEE ARTHROSCOPY [id number] 11/25/2015 18:45:00 ACT Unknown FELI MCCLENDON, [facility] [place] TIRED [id number] 11/19/2015 10:09:00 ACT Unknown FELI MCCLENDON, [facility] [place] XREAY [id number] 08/25/2015 09:47:00 ACT Unknown FELI MCCLENDON, [facility] [place] [facility] LAB; E11.9 [id number] 05/29/2013 00:00:00 Document Registration [id number] 10/27/2017 16:55:00 10/27/2017 23:59:59 CLS Outpatient RINA MARIE [facility]
[2018-09-11] MEDS ORDERED: morphine INJ 4 MG/ML 1 ML (VIAL/SYRINGE) IV PRN (21:45)
[2018-09-11] MEDS ORDERED: ONDANSETRON 4 MG/2 ML (SDV) Z0FRAN IV PRN (21:45)
[2018-09-11] MEDS ORDERED: NITROGLYCERIN 0.4 MG SL TABS BTL 25'S SL PRN (21:45)
[2018-09-11] MEDS ORDERED: traZODone 100 MG (DESYREL) TAB ONE (23:39)
[2018-09-11] MEDS: traZODone 100 MG (DESYREL) TAB PO SCH (23:46)
[2018-09-11] MEDS: ACETAMINOPHEN 500 MG TAB (TYLENOL) PO PRN (23:48)
[2018-09-12] VITALS (12 sets, daily range): BP systolic 93–134; BP diastolic 61–89
[2018-09-12] MEDS ORDERED: RT-ALBUTEROL SULF 2.5 MG/3 ML PRE-MIX VIAL INH PRN (00:15)
[2018-09-12 06:33] LABS: BASOPHILS % (AUTO) 1 % (0-10); EOSINOPHILS # (AUTO) 0.2 10^3/uL (0.0-0.3); EOSINOPHILS % (AUTO) 3 % (0-10); HEMATOCRIT 40 % (35-52); HEMOGLOBIN 13.3 G/DL (11.5-16.0); LYMPHOCYTES # (AUTO) 2.7 X 10^3 (1.0-4.0); LYMPHOCYTES % (AUTO) 44 % (12-44); MEAN CORPUSCULAR HEMOGLOBIN 31 PG (25-34); MEAN CORPUSCULAR HGB CONC 34 G/DL (32-36); MEAN CORPUSCULAR VOLUME 92 FL (80-99); MEAN PLATELET VOLUME 9.5 FL (7.4-10.4); MONOCYTES # (AUTO) 0.5 X 10^3 (0.0-1.0); MONOCYTES % (AUTO) 8 % (0-12); NEUTROPHILS # (AUTO) 2.7 X 10^3 (1.8-7.8); NEUTROPHILS % (AUTO) 45 % (42-75); PLATELET COUNT 274 10^3/uL (130-400)
[2018-09-12 07:03] LABS: ALANINE AMINOTRANSFERASE 18 U/L (0-55); ALKALINE PHOSPHATASE 58 U/L (40-136); BILIRUBIN,TOTAL 0.4 MG/DL (0.1-1.0); BUN/CREATININE RATIO 19; CALCIUM 9.1 MG/DL (8.5-10.1); CARBON DIOXIDE 20 MMOL/L (21-32); CHLORIDE 108 MMOL/L (98-107); CHOLESTEROL 163 MG/DL (< 200); CREATININE SERUM 0.96 MG/DL (0.60-1.30); GFR ESTIMATED > 60; GLUCOSE 146 MG/DL (70-105); HDL CHOLESTEROL 30 MG/DL (40-60); POTASSIUM 4.2 MMOL/L (3.6-5.0); SODIUM 140 MMOL/L (135-145); TOTAL PROTEIN 6.6 GM/DL (6.4-8.2); TRIGLYCERIDES 198 MG/DL (<150); VLDL CHOLESTEROL 40 MG/DL (5-40)
--- NOTE | 2018-09-12 08:14 | Short Stay Summary-Hospitalist ---
History of Present Illness HPI/Chief Complaint Pt is a 48yoCF who presented to the ER with a CC of chest pain. She states this has been going on for a week and a half. She will get intermittent chest pain that happens randomly and is not associated with exertion. She states it normally lasts 3-5 minutes and resolves on it's own. She associates it with SOB, diaphoresis, and nausea. It has happened with walking but last night started at rest. She has had previous episodes and follows with a cardiolgoist in [facility]. She called their office yesterday and they could not get her in until October so they recommended her seeking care in the ER. She was admitted for further evaluation to rule out ACS. Troponins were trended and negative x3 overnight. At present she is not experiencing pain. Source: patient Exam Limitations: no limitations Date Seen 09/12/18 Time Seen by a Provider: 08:09 Attending Physician Gabino Arciniega MD PCP No,Local Physician Referring Physician Date of Admission Sep 11, 2018 at 20:20 Home Medications & Allergies Home Medications Reviewed patient Home Medication Reconciliation performed by pharmacy medication reconciliations emissions testing technician and/or nursing. Patients Allergies have been reviewed. Allergies Allergies Coded Allergies No Known Drug Allergies (Unverified09/11/18) Past Qfiwkbg-Pupezz-Fsapsb Hx Past Med/Social Hx: Reviewed Nursing Past Med/Soc Hx Patient Social History Marrital Status: Alcohol Use: Occasionally Uses Number of Drinks Today: 0 Recreational Drug Use: No Smoking Status: Current Everyday Smoker Cigaretts per day: 10 Type Used: Cigarettes (35 pack years) 2nd Hand Smoke Exposure: Yes Recent Foreign Travel: No Contact w/other who traveled: No Recent Hopitalizations: No Recent Infectious Disease Expo: No Immunizations Up To Date Date of Pneumonia Vaccine: July 02, 2018 Past Medical History Surgeries: Gallbladder, Orthopedic, Tubal Ligation Cardiac: High Cholesterol Female Reproductive Disorders: Ovarian Cyst Tubal Ligation Gastrointestinal: Ulcer (h pylori) Family History Reviewed Nursing Family Hx FH: heart attack 19 MOTHER, Onset:50's - 60 FH: stroke 19 MOTHER, Onset:50's - 60 Heart Disease, CAD Under 55 Years Old, CVA Review of Systems Constitutional: No chills, No fever EENTM: No blurred vision, No double vision, No nose congestion, No throat pain Respiratory: see HPI Cardiovascular: see HPI Gastrointestinal: No abdominal pain, No constipation, No diarrhea, No nausea, No vomiting Genitourinary: No dysuria, No frequency Musculoskeletal: No joint pain, No muscle pain Skin: No lesions, No rash Psychiatric/Neurological: Denies Headache, Denies Numbness, Denies Tingling Physical Exam Physical Exam Vital Signs Vital Signs - First Documented 09/11/18 23:23 FiO2 21 Capillary Refill : NONELess Than 3 Seconds Height, Weight, BMI Height: 5'5.00" Weight: 231lbs. 0.0oz. 104.612798su; 38.4 BMI Method:Stated General Appearance: No Apparent Distress, WD/WN HEENT: PERRL/EOMI, Moist Mucous Membranes; No Scleral Icterus (L), No Scleral Icterus (R) Neck: Normal Inspection, Supple; No Thyromegaly Respiratory: Chest Non Tender, Lungs Clear, No Accessory Muscle Use, No Respiratory Distress Cardiovascular: Regular Rate, Rhythm, No Murmur Gastrointestinal: Normal Bowel Sounds, Non Tender, Soft Extremity: Normal Capillary Refill, No Calf Tenderness, No Pedal Edema Neurologic/Psychiatric: Alert, Oriented x3, Normal Mood/Affect; No Aphasia, No Facial Droop Skin: Normal Color, Warm/Dry, Tattoos/Piercings Results Results/Procedures Labs Laboratory Tests 09/11/18 18:30 09/12/18 06:25 Patient resulted labs reviewed. Imaging: Reviewed Imaging Report Short Stay Diagnosis Discharge Diagnosis-Short Stay Admission Diagnosis Chest pain Conclusion Plan Chest pain Troponin negative x3 Cardiology consulted, appreciate recs Diagnosis/Problems Diagnosis/Problems (1) Chest pain Status: Acute Qualifiers: Qualified Codes: R07.9 - Chest pain, unspecified (2) HLD (hyperlipidemia) Status: Acute Qualifiers: Qualified Codes: E78.2 - Mixed hyperlipidemia (3) Prediabetes Status: Acute (4) Myocardial bridge Status: Chronic Clinical Quality Measures AMI/AHF: ASA po Prior to arrival: No DVT/VTE Risk/Contraindication: Risk Factor Score Per Nursin RFS Level Per Nursing on Admit: 4+=Very High Copy Copies To 1: TIFFANIE Reece MD Sep 12, 2018 8:14 am
[2018-09-12] MEDS ORDERED: TRAZ-222 PO (08:34)
[2018-09-12] MEDS ORDERED: ALPR0.5T7 PO (08:34)
[2018-09-12] MEDS ORDERED: VENL75CA93 PO (08:34)
[2018-09-12] MEDS ORDERED: LIRA0.6P SC (08:34)
[2018-09-12] MEDS ORDERED: FLUT16SP22 NS (08:39)
[2018-09-12] MEDS ORDERED: POTA99TA21 PO (08:39)
[2018-09-12] MEDS ORDERED: PANT40TA3 PO (08:39)
[2018-09-12] MEDS ORDERED: LYSI100014 PO (08:39)
[2018-09-12] MEDS ORDERED: RT-ALBUINH INH (08:39)
[2018-09-12] MEDS ORDERED: ATOR20TA66 PO (08:39)
[2018-09-12] MEDS: ASPIRIN E.C. 81 MG (ECOTRIN) TAB PO SCH (11:05)
[2018-09-12] MEDS: PANTOPRAZOLE 40 MG (PROTONIX) TAB PO SCH (11:06)
[2018-09-12] MEDS: lisINopril 5 MG (PRINIVIL) TABLET PO SCH (11:06)
[2018-09-12] MEDS: VENlafaxine XR 75 MG (EFFEXOR XR) CAP PO SCH (11:07)
[2018-09-12] MEDS: VICTOZA PO SCH (11:41)
--- NOTE | 2018-09-12 12:34 | Consultation-Cardiology ---
HPI-Cardiology Cardiology Consultation: Date of Consultation 09/12/18 Date of Admission Attending Physician Gabino Arciniega MD Admitting Physician Yuki,Local Physician Consulting Physician Rc MERCHANT MD HPI: Time Seen by a Provider: 12:00 Chief Complaint: Chest pain This is a 48-year-old lady who has history of borderline diabetes, active smoking, hyperlipidemia. Mother had history of OR. Denies hypertension. She presented with chest pain and shortness of breath. Recurrent episode of chest pain for the last few days. She had a prolonged episode of chest pain which brought her to the ER. The episode lasted for 45 minutes. She also complained of shortness of breath. No significant radiation. No exacerbating or relieving factors. She has previously seen a head track coach close to [place] who did coronary angiography 3-4 years ago which showed myocardial bridging according to the patient. The patient is on antidiabetic medication. Review of Systems-Cardiology Review of Systems Constitutional: As described under HPI; No As described under HPI, No no symptoms reported, No chills, No fever, No lightheadedness Eyes: No As described under HPI, No no symptoms reported, No blindness, No blurred vision, No contact lenses, No drainage, No decreased acuity, No foreign body sensation, No pain, No vision change Ears/Nose/Throat: No As described under HPI, No no symptoms reported, No chronic hearing loss, No ear discharge, No ear pain, No nasal drainage, No ulcerations Respiratory: No no symptoms reported; As described under HPI; No As described under HPI, No cough, No orthopnea; shortness of breath; No SOB with excertion Cardiovascular: No no symptoms reported; As described under HPI; No As described under HPI; chest pain; No edema, No irregular heart rate, No lightheadedness, No palpitations Gastrointestinal: No no symptoms reported, No As described under HPI, No abdomen distended, No abdominal pain, No blood streaked bowels, No constipation, No diarrhea, No nausea, No vomiting, No stool coloration changes Genitourinary: No As described under HPI, No burning, No dysuria, No discharge, No frequency, No flank pain, No hematuria, No urgency : Yes : No Skin: No rash, No skin related problems, No ulcerations Psychiatric/Neurological: No anxiety, No depression, No seizure, No focal weakness, No syncope Hematologic: No bleeding abnormalities [id number] Hx Patient Social History Marrital Status: Alcohol Use: Occasionally Uses Recreational Drug Use: No Smoking Status: Current Everyday Smoker Cigaretts per day: 10 Type Used: Cigarettes (35 pack years) 2nd Hand Smoke Exposure: Yes Recent Foreign Travel: No Recent Infectious Disease Expo: No Hospitalization with Isolation: Denies Immunizations Up To Date Date of Pneumonia Vaccine: July 02, 2018 Past Medical History PMH As described under Assessment. Family Medical History Family History: FH: heart attack 19 MOTHER, Onset:50's - 60 FH: stroke 19 MOTHER, Onset:50's - 60 Allergies and Home Medications Allergies Coded Allergies: No Known Drug Allergies (Unverified , 09/11/18) Home Medications Albuterol Sulfate 1 Puff Puff, 2 PUFF INH Q4H PRN for SHORTNESS OF BREATH, (Reported) Alprazolam 0.5 Mg Tablet, 0.5 MG PO TID PRN for ANXIETY, (Reported) Atorvastatin Calcium 20 Mg Tablet, 20 MG PO DAILY, (Reported) LAST FILLED #30 4-3-19 Fluticasone Propionate 16 Gm Stevinson.susp, 2 SPRAYS NS DAILY PRN for ALLERGIES, (Reported) Liraglutide 0.6 Mg/0.1 Ml Pen.injctr, 1.2 MG SC DAILY, (Reported) Lysine 1,000 Mg Tablet, 1,000 MG PO DAILY, (Reported) Pantoprazole Sodium 40 Mg Tablet.dr, 40 MG PO DAILY, (Reported) Potassium Gluconate 99 Mg Tablet, 99 MG PO DAILY, (Reported) Trazodone HCl 50 Mg Tablet, 50 MG PO HS, (Reported) Venlafaxine HCl 75 Mg Cap.er.24h, 75 MG PO DAILY, (Reported) Patient Home Medication List Home Medication List Reviewed: Yes Physical Exam-Cardiology Physical Exam Vital Signs/I&O 09/12/18 09/12/18 09/12/18 09/12/18 12:00 12:00 12:00 12:44 Temp 97.2 Pulse 61 65 Resp 6 B/P (MAP) 134/72 (92) Pulse Ox 94 99 O2 Delivery Room Air Room Air 09/12/18 09/12/18 09/12/18 09/12/18 15:15 16:00 16:00 19:04 Temp 96.7 Pulse 85 62 Resp 33 B/P (MAP) Pulse Ox 98 O2 Delivery Room Air Room Air 09/12/18 09/12/18 09/12/18 09/12/18 19:30 20:00 20:00 21:00 Temp 96.8 Pulse 77 Resp 33 B/P (MAP) 127/73 (91) Pulse Ox 94 O2 Delivery Room Air Room Air Room Air 09/12/18 23:02 Pulse 58 Resp 14 B/P (MAP) 124/82 (96) Pulse Ox 100 O2 Delivery Room Air 09/12/18 00:00 Intake Total 0 ml Balance 0 ml Capillary Refill : NONELess Than 3 Seconds Constitutional: appears stated age, AAO x 3; No apparent distress; well- developed, well-nourished HEENT: PERRL; No normal ENT inspection, No TMs normal, No pharynx normal, No scleral icterus (R), No scleral icterus (L), No pale conjunctivae (R), No pale conjunctivae (L), No photophobia, No TM abnormal (R), No TM abnormal (L), No pharyngeal erythema, No tonsillar exudate, No other, No discharge, No EOMI; hearing is well preserved; No hard of hearing; oral hygience is good; No ulceration, No xanthelasmas are seen Neck: No non-tender, No full range of motion, No supple, No normal inspection, No carotid bruit, No limited range of motion, No lymphadenopathy (R), No lymphadenopathy (L), No tender lateral, No tender midline, No thyromegaly, No other; carotid pulses are 2 + bilaterally; No with good upstrokes Respiratory: No accessory muscle use, No respiratory distress, No chest tender, No chest expansion is symmetric; chest is bilaterally symmetric; No lungs clear to percussion; lungs clear to auscultation; No crackles, No rhonchi, No rales, No stridor, No wheezing, No pleural rub, No other Cardiovascular: regular rate-rhythm; No irregularly irregular, No extra beats, No parasternal heave is noted, No JVD, No edema, No bradycardia, No tachycardia, No point of maximal impulse, No cardiac thrills are palpable; S1 and S2; No gallop/S3, No gallop/S4, No diastolic murmur, No systolic murmur, No friction rub, No click, No other Gastrointestinal: No tender, No soft, No round, No distended, No pulsatile mass, No organomegaly, No guarding, No rebound, No tenderness, No hernia, No mass, No audible bowel sounds, No abnormal bowel sounds, No abdominal bruits, No spleenomegaly, No other Rectal: deferred Extremities: No normal range of motion, No non-tender, No normal inspection, No pedal edema, No calf tenderness, No normal capillary refill, No pelvis stable, No calf tenderness, No inflammation, No pedal edema, No slow capillary refill, No swelling, No other, No abrasion, No clubbing, No cyanosis, No ecchymosis, No laceration, No no lower extremity edema bilateral, No significant edema, No tenderness, No wound Neurologic/Psychiatric: no motor/sensory deficits, alert, normal mood/affect, oriented x 3, power is 5/5 both on sides Skin: No normal color, No warm/dry, No cyanosis, No cool, No diaphoresis, No damp, No ecchymosis, No jaundice, No mottled, No pallor, No rash, No tattoos/piercings, No ulcerations, No rash on exposed areas, No ulcerations on exposed areas, No other Data Review Labs Laboratory Tests 09/12/18 00:30: Troponin I < 0.028 09/12/18 06:25: Troponin I < 0.028, White Blood Count 6.0, Red Blood Count 4.30L, Hemoglobin 13.3, Hematocrit 40, Mean Corpuscular Volume 92, Mean Corpuscular Hemoglobin 31, Mean Corpuscular Hemoglobin Concent 34, Red Cell Distribution Width 13.0, Platelet Count 274, Mean Platelet Volume 9.5, Neutrophils (%) (Auto) 45, Lymphocytes (%) (Auto) 44, Monocytes (%) (Auto) 8, Eosinophils (%) (Auto) 3, Basophils (%) (Auto) 1, Neutrophils # (Auto) 2.7, Lymphocytes # (Auto) 2.7, Monocytes # (Auto) 0.5, Eosinophils # (Auto) 0.2, Basophils # (Auto) 0.0, Sodium Level 140, Potassium Level 4.2, Chloride Level 108H, Carbon Dioxide Level 20L, Anion Gap 12, Blood Urea Nitrogen 18, Creatinine 0.96, Estimat Glomerular Filtration Rate > 60, BUN/Creatinine Ratio 19, Glucose Level 146H, Calcium Level 9.1, Corrected Calcium 9.1, Total Bilirubin 0.4, Aspartate Amino Transf (AST/SGOT) 17, Alanine Aminotransferase (ALT/SGPT) 18, Alkaline Phosphatase 58, Total Protein 6.6, Albumin 4.0, Triglycerides Level 198H, Cholesterol Level 163, LDL Cholesterol Direct 114, VLDL Cholesterol 40, HDL Cholesterol 30L 09/12/18 07:36: Glucometer 142H 09/12/18 10:57: Glucometer 135H 09/12/18 16:00: Glucometer 133H 09/12/18 22:11: Glucometer 165H ECG Impression ECG Initial ECG Rhythm: Normal Sinus Initial ECG Impression: Normal A/P-Cardiology Assessment/Admission Diagnosis Prolonged episode of chest pain, Hyperlipidemia, diabetes, Active smoking, Myocardial bridging. Plan Prolonged episode of chest pain, acute coronary syndrome ruled out with serial negative troponin. EKG does not show any acute ST-T wave abnormalities. Echocardiogram and nuclear stress test is recommended. Hyperlipidemia, continue atorvastatin. diabetes, continue Victoza. Active smoking, smoking cessation was strongly recommended. Myocardial bridging, if nuclear stress test is negative, will recommend either long-acting nitrates or calcium channel blockers. Thank you for your consultation. Please call me if you have any questions. Jn Merchant MD, FACP, FACC, FSCAI, FHRS, CCDS Interventional Cardiology Cardiac Electrophysiology Vascular Medicine and Endovascular Interventions Clinical Quality Measures AMI/AHF: ASA po Prior to arrival: No DVT/VTE Risk/Contraindication: Risk Factor Score Per Nursin RFS Level Per Nursing on Admit: 4+=Very High Rc MERCHANT MD Sep 12, 2018 12:34
[2018-09-12] MEDS ORDERED: ATORVASTATIN 40 MG (LIPITOR) TABLET PO SCH (21:00)
[2018-09-12] MEDS: traZODone 100 MG (DESYREL) TAB PO SCH (22:59)
[2018-09-13 04:00] VITALS: BP 127/73
[2018-09-13] MEDS: VENlafaxine XR 75 MG (EFFEXOR XR) CAP PO SCH (06:29)
[2018-09-13] MEDS ORDERED: CATHETER FLUSH 10 ML SYR IV PRN (07:45)
[2018-09-13] MEDS ORDERED: REGADENOSON 0.4 MG/5 ML SYR (LEXISCAN) IV ONE ×2 (08:40→09:15)
[2018-09-13 09:08] VITALS: BP 135/75
[2018-09-13 09:13] VITALS: BP 129/79
[2018-09-13] MEDS: ACETAMINOPHEN 500 MG TAB (TYLENOL) PO PRN (10:25)
[2018-09-13] MEDS: lisINopril 5 MG (PRINIVIL) TABLET PO SCH (11:06)
[2018-09-13] MEDS: PANTOPRAZOLE 40 MG (PROTONIX) TAB PO SCH (11:06)
[2018-09-13] MEDS: ASPIRIN E.C. 81 MG (ECOTRIN) TAB PO SCH (11:06)
[2018-09-13] MEDS: VICTOZA PO SCH (11:08)
--- NOTE | 2018-09-13 12:04 | Discharge Inst-Simple/Standard ---
Discharge Inst-Standard Patient Instructions/Follow Up Plan of Care/Instructions/FU: Please continue to take your medications as written. 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 Please continue to work on quitting smoking. Activity as Tolerated: Yes Discharge Diet: Cardiac Diet Return to The Hospital For: Chest pain, shortness of breath, abdominal pain, if you feel you are getting worse. TIFFANIE BROWN MD Sep 13, 2018 12:04 pm
--- NOTE | 2018-09-13 14:39 | Cardiology Progress Note ---
Cardiology SOAP Progress Note Subjective: No further chest pain. Objective: I&O/Vital Signs 09/13/18 09/13/18 09/13/18 09/13/18 04:00 04:00 07:00 08:00 Temp 97.0 Pulse 70 76 Resp 12 B/P (MAP) 127/73 (91) Pulse Ox 100 O2 Delivery Room Air Room Air Room Air 09/13/18 09/13/18 09/13/18 09/13/18 09:00 09:08 09:13 12:00 Pulse 104 85 Resp 16 16 B/P (MAP) 135/75 (95) 129/79 (96) Pulse Ox 94 99 99 O2 Delivery Room Air Room Air Room Air Room Air 09/13/18 12:40 B/P (MAP) 09/13/18 00:00 Intake Total 680 ml Balance 680 ml Weight (Pounds): 232 Weight (Ounces): 0.0 Weight (Calculated Kilograms): [id number] Constitutional: appears stated age, AAO x 3; No apparent distress; well-d eveloped, well-nourished Respiratory: No accessory muscle use, No respiratory distress, No chest tender, No chest expansion is symmetric; chest is bilaterally symmetric; No lungs clear to percussion; lungs clear to auscultation; No crackles, No rhonchi, No rales, No stridor, No wheezing, No pleural rub, No other Cardiovascular: regular rate-rhythm; No irregularly irregular, No extra beats, No parasternal heave is noted, No JVD, No edema, No bradycardia, No tachycardia, No point of maximal impulse, No cardiac thrills are palpable; S1 and S2; No gallop/S3, No gallop/S4, No diastolic murmur, No systolic murmur, No friction rub, No click, No other Gastrointestional: No tender, No soft, No round, No distended, No pulsatile mass, No organomegaly, No guarding, No rebound, No tenderness, No hernia, No mass, No audible bowel sounds, No abnormal bowel sounds, No abdominal bruits, No spleenomegaly, No other Extremities: No normal range of motion, No non-tender, No normal inspection, No pedal edema, No calf tenderness, No normal capillary refill, No pelvis stable, No calf tenderness, No inflammation, No pedal edema, No slow capillary refill, No swelling, No other, No abrasion, No clubbing, No cyanosis, No ecchymosis, No laceration, No no lower extremity edema bilateral, No significant edema, No tenderness, No wound Neurologic/Psychiatric: no motor/sensory deficits, alert, normal mood/affect, oriented x 3, power is 5/5 both on sides Skin: No normal color, No warm/dry, No cyanosis, No cool, No diaphoresis, No damp, No ecchymosis, No jaundice, No mottled, No pallor, No rash, No tattoos/piercings, No ulcerations, No rash on exposed areas, No ulcerations on exposed areas, No other Results/Procedures: Labs Laboratory Tests 09/12/18 16:00: Glucometer 133H 09/12/18 22:11: Glucometer 165H A/P: Assessment/Dx: Prolonged episode of chest pain, Hyperlipidemia, diabetes, Active smoking, Myocardial bridging. Plan: Prolonged episode of chest pain, acute coronary syndrome ruled out with serial negative troponin. EKG does not show any acute ST-T wave abnormalities. Nuclear stress test done 09/13/2018 showed normal myocardial perfusion imaging at rest and stress. Hyperlipidemia, continue atorvastatin. diabetes, continue Victoza. Active smoking, smoking cessation was strongly recommended. Myocardial bridging, if nuclear stress test is negative, will recommend either long-acting nitrates or calcium channel blockers. 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 Thank you for your consultation. Please call me if you have any questions. Jn Merchant MD, FACP, FACC, FSCAI, FHRS, CCDS Interventional Cardiology Cardiac Electrophysiology Vascular Medicine and Endovascular Interventions Clinical Quality Measures AMI/AHF: ASA po Prior to arrival: Rc Veras MD Sep 13, 2018 14:39
--- NOTE | 2018-09-14 13:08 | Cardiology Stress Test Report ---
Stress Test Report Type of NM Stress Test: Test Type: LEXISCAN 0.4MG/5ML Date of Procedure/Referring: Date of Procedure: Sep 13, 2018 PCP Gabino Arciniega MD Admitting Physician No,Local Physician Indications: Chest pain Baseline Heart Rate: 62 Baseline Blood Pressure: Blood Pressure Systolic: 129 Blood Pressure Diastolic: 79 Baseline EKG: Baseline EKG: sinus rhythm Summary & Conclusion: Summary: The patient was brought to the stress lab after informed consent was taken. Str ess test was performed according to the Lexiscan protocol. 0.4 mg of IV Lexiscan was given. Low-grade exercise was performed. Baseline EKG showed sinus rhythm at 62 BPM. Initial blood pressure was 151/65 mmHg. Maximum heart rate was 88 bpm and blood pressure 123/74 mmHg. Patient did not have any chest pain, arrhythmias or ST segment changes during the stress test. 11.0 mCi of Myoview were given for rest imaging and 31.3 mCi of Myoview given for stress imaging. Transient ischemic dilatation score 1.06, EF 62 percent. Normal wall motion. Normal myocardial perfusion imaging during rest and stress. Conclusion: Pharmacological stress test was negative for ischemia. Normal LV function with no wall motion abnormalities. Normal myocardial perfusion imaging during rest and stress. Rc LEA MD Sep 14, 2018 13:08
== END 2018-09-13 12:04 | disposition home or self-care (01) ==
LOC: ER 18:23 → UNDOADMOB 20:20 → ICU 20:20 → UNDODISOB 09-13 12:40
PROVIDERS: ADMIT Internal Medicine; ATTEND Internal Medicine
DX: R07.9 Chest pain, unspecified (principal); Q24.5 Malformation of coronary vessels; E78.00 Pure hypercholesterolemia, unspecified; E11.9 Type 2 diabetes mellitus without complications; E78.5 Hyperlipidemia, unspecified; E78.2 Mixed hyperlipidemia; F17.210 Nicotine dependence, cigarettes, uncomplicated; Z98.51 Tubal ligation status; Z82.3 Family history of stroke; Z79.84 Long term (current) use of oral hypoglycemic drugs; Z79.899 Other long term (current) drug therapy; Z82.49 Family history of ischemic heart disease and other diseases of the circulatory system
CPT/HCPCS: 36415; 71045; 78452; 80053; 80061; 82962; 83690; 83735; 83874; 83880; 84484; 85025; 85379; 85610; 85730; 93005; 93017; 93041; 93306